=== PATIENT | male | born 1955 | race Hispanic/Latino ===

== ENCOUNTER 2021-03-30 17:04 | Inpatient (IN) | payer BC ==
--- OUTSIDE RECORDS SUMMARY | 2021-03-30 17:07 | XMS REPORT | Continuity of Care Document ---
:1955 Author Organization [facility] t Address [address] [place] [address] Care Team Providers Name Role Phone Selma RN, Kimberlee Attending Clinician Unavailable Ermias HENRIQUEZ, Michelle Banuelos Attending Clinician Unavailable Doctor Unassigned, Name Attending Clinician Unavailable Malu CASTLE Attending Clinician Problems This patient has no known problems. Allergies, Adverse Reactions, Alerts This patient has no known allergies or adverse reactions. Medications This patient has no known medications. Procedures This patient has no known procedures. Encounters Start End Encounter Admission Attending Care Care Encounter Source Date/Time Date/Time Type Type Clinicians Facility Department ID 2021-03-26 2021-03-26 Telephone TRISTIAN Hahn [id number] 00:00:00 00:00:00 Kimberlee SHOEMAKER [id number] 2021-03-26 2021-03-26 Letter TRISTIAN Monson [id number] 00:00:00 00:00:00 (Out) Michelle SHOEMAKER [id number] 2021-03-25 2021-03-25 Letter Doctor LUBIN [id number] 00:00:00 00:00:00 (Out) SAHARA Camacho [id number] [place] [id number] 2021-03-25 2021-03-25 Letter Doctor TRISTIAN [id number] 00:00:00 00:00:00 (Out) Unassigned, SAHARA [id number] [place] [facility] [id number] 2021-03-25 2021-03-25 Orders Doctor TRISTIAN [id number] 00:00:00 00:00:00 Only Unassigned, SAHARA [id number] [place] [facility] [id number] 2019-09-12 2019-09-12 [facility] [id number] 13:52:00 23:59:00 Encounter , Nelson [id number] [place] [id number] [facility] [id number] Results This patient has no known results.
--- NOTE | 2021-03-30 17:59 | RAD REPORT ---
EXAM DESCRIPTION: RAD - Chest Single View - 03/30/2021 5:53 pm CLINICAL HISTORY: Cough;Dyspnea COMPARISON: No comparisons FINDINGS: Mild patchy bilateral airspace disease. Cardiomegaly peerNo acute osseous abnormality. No significant pleural effusions or pneumothorax. IMPRESSION: Mild patchy bilateral airspace disease concerning for multifocal pneumonia, including Co vid-19.
[2021-03-30] MEDS ORDERED: IBUPROFEN 400 MG TAB ONE (18:06)
[2021-03-30 18:18] LABS: Absolute Lymphocytes (CBC) 0.5 K/uL (0.7-4.9); Basophils % 0.3 % (0-1.3); Hematocrit 44.6 % (39.6-49.0); Lymphocytes % 8.7 % (15.3-44.8); MPV 8.8 fL (7.6-11.3); RBC Red Blood Cell Count 4.82 M/uL (4.33-5.43)
[2021-03-30 18:25] LABS: Protime INR 1.09
--- NOTE | 2021-03-30 18:33 | ER ---
Nurse's Notes [facility] Name: Aniket Yen Age: 65 yrs Sex: Male : 1955 Arrival Date: 03/30/2021 Time: 17:07 Bed 17 Private MD: Diagnosis: Pneumonia due to SARS-associated coronavirus;Hypoxemia;Dehydration Presentation: 03/30 17:26 Chief complaint: Patient states: SOB, left sided abdominal pain x 2 days. COVID + kg 03/25. stated every time he gets up his 02 drops to 85% RA. Coronavirus screen: Client denies travel out of the [place] in the last 14 days. At this time, unable to obtain information related to travel outside the [place] Client presents with at least one sign or symptom that may indicate coronavirus-19. Standard/surgical mask placed on the client. Provider contacted for isolation considerations. Client reports previous positive COVID test result. Date of collection: March 25, 2021. Ebola Screen: Patient negative for fever greater than or equal to 101.5 degrees Fahrenheit, and additional compatible Ebola Virus Disease symptoms Patient denies exposure to infectious person. Patient denies travel to an Ebola-affected area in the 21 days before illness onset. Initial Sepsis Screen: Does the patient meet any 2 criteria? RR > 20 per min. No. Patient's initial sepsis screen is negative. Does the patient have a suspected source of infection? No. Patient's initial sepsis screen is negative. Risk Assessment: Do you want to hurt yourself or someone else? Patient reports no desire to harm self or others. Onset of symptoms was March 29, 2021. 17:26 Method Of Arrival: Wheelchair kg 17:26 Acuity: MARY 3 kg Triage Assessment: 17:34 General: Appears uncomfortable, Behavior is calm, cooperative, appropriate for age, kg quiet. Pain: Complains of pain in left upper quadrant and left lower quadrant Pain radiates to Generalized Pain currently is 7 out of 10 on a pain scale. at worst was 9 out of 10 on a pain scale. level that patient reports is acceptable is 3 out of 10 on a pain scale. Historical: - Allergies: 17:34 No Known Allergies; kg - Home Meds: 17:34 amlodipine 5 mg tab 1 tab once daily [Active]; atenolol 25 mg Oral tab 1 tab once daily kg [Active]; azithromycin 500 mg Oral tab 1 tab once daily [Active]; benzonatate 200 mg Oral cap 1 cap 3 times per day [Active]; prednisone 1 mg Oral tab 1 tab 2 times per day [Active]; omeprazole 20 mg Oral cpDR 1 cap once daily [Active]; - PMHx: 17:34 Hypertensive disorder; kg - PSHx: 17:34 left knee; kg - Immunization history:: Adult Immunizations not up to date, Client reports having NOT received the Covid vaccine. - Social history:: Smoking status: Patient denies any tobacco usage or history of. Patient uses alcohol, weekly. - Family history:: not pertinent. - Hospitalizations: : No recent hospitalization is reported. Screenin:36 Abuse screen: Denies threats or abuse. Denies injuries from another. Nutritional kg screening: No deficits noted. Tuberculosis screening: No symptoms or risk factors identified. Fall Risk None identified. Assessment: 18:35 General: Appears in no apparent distress. Behavior is. Pain: Pain currently is 6 out of hb 10 on a pain scale. Neuro: Level of Consciousness is awake, alert, obeys commands, Oriented to person, place, time, situation. Cardiovascular: Patient's skin is warm and dry. Respiratory: Reports shortness of breath at rest on exertion cough that is non-productive, Respiratory effort is even, mildly labored Respiratory pattern is tachypnea. GI: No signs and/or symptoms were reported involving the gastrointestinal system. : No signs and/or symptoms were reported regarding the genitourinary system. EENT: No signs and/or symptoms were reported regarding the EENT system. Derm: Skin is pink, warm \T\ dry. Musculoskeletal: Reports headache, body aches. 18:35 Reassessment: Dr. Valdez at bedside. hb Vital Signs: 17:26 BP 142 / 76; Pulse 95; Resp 26; Temp 100.8(O); Pulse Ox 88% on R/A; Weight 111.13 kg kg (R); Height 6 ft. 0 in. (182.88 cm) (R); Pain 6/10; 03/31 19:45 BP 156 / 81; Pulse 70; Resp 26; Temp 98.7; Pulse Ox 87% ; Pain 0/10; wg 03/30 17:26 Body Mass Index 33.23 (111.13 kg, 182.88 cm) kg ED Course: 03/30 17:07 Patient arrived in ED. as 17:07 Maday Nunez MD is Private Physician. as 17:30 Triage completed. kg 17:34 Arm band placed on right wrist. kg 17:36 Patient has correct armband on for positive identification. kg 17:43 Cullen aJy MD is Attending Physician. rn 17:53 CXR XRAY In Process Unspecified. EDMS 18:06 Inserted saline lock: 20 gauge in left forearm, using aseptic technique. Blood ss collected. 18:32 Vadim Jeffries MD is Hospitalizing Provider. rn 18:33 Lior Valdez is Hospitalizing Provider. rn 18:35 Nuris Green RN is Primary Nurse. hb 19:42 Primary Nurse role handed off by Nuris Green, RN mw2 Administered Medications: 17:49 Drug: Motrin (ibuprofen) 800 mg Route: PO; ss 19:37 Drug: SOLU-Medrol (methylPrednisoLONE) 125 mg Route: IVP; Site: left forearm; hb 19:40 Drug: NS 0.9% 1000 ml Route: IV; Rate: 1000 ml; Site: left forearm; hb Outcome: 18:33 Decision to Hospitalize by Provider. rn 03/31 21:24 Patient left the ED. ch4 Signatures: Dispatcher [employer] EDCrista Ferrara as Cullen Jay MD MD rn Smirch, Shelby, RN RN Nuris Green RN RN Louis Silva mw2 Rosamaria Hayden RN RN Alyson Patel, MARTINEZ HENRIQUEZ [facility] Jimmy Guaman
--- NOTE | 2021-03-30 18:34 | EDPHYS ---
Physician Documentation [facility] Name: Aniket Yen Age: 65 yrs Sex: Male : 1955 Arrival Date: 03/30/2021 Time: 17:07 Bed 17 Private MD: ED Physician Cullen Jay HPI: 03/30 18:00 This 65 yrs old Male presents to ER via Wheelchair with complaints of covid+, rn sob, symptoms worsening. 18:00 The patient has shortness of breath at rest, with light activity. Onset: The rn symptoms/episode began/occurred 6 day(s) ago. Duration: The symptoms are continuous. The patient's shortness of breath is aggravated by exertion, light activity, talking. Associated signs and symptoms: Pertinent positives: non-productive cough, Pertinent negatives: fever, hemoptysis, loss of consciousness. Severity of symptoms: At their worst the symptoms were moderate in the emergency department the symptoms are unchanged. The patient has not experienced similar symptoms in the past. The patient has not recently seen a physician. Patient reports 6 days of not feeling well, Covid positive, worsening shortness of breath especially with exertion. Positive diarrhea and fatigue. No chronic lung or heart problems.. Historical: - Allergies: 17:34 No Known Allergies; kg - Home Meds: 17:34 amlodipine 5 mg tab 1 tab once daily [Active]; atenolol 25 mg Oral tab 1 tab once daily kg [Active]; azithromycin 500 mg Oral tab 1 tab once daily [Active]; benzonatate 200 mg Oral cap 1 cap 3 times per day [Active]; prednisone 1 mg Oral tab 1 tab 2 times per day [Active]; omeprazole 20 mg Oral cpDR 1 cap once daily [Active]; - PMHx: 17:34 Hypertensive disorder; kg - PSHx: 17:34 left knee; kg - Immunization history:: Adult Immunizations not up to date, Client reports having NOT received the Covid vaccine. - Social history:: Smoking status: Patient denies any tobacco usage or history of. Patient uses alcohol, weekly. - Family history:: not pertinent. - Hospitalizations: : No recent hospitalization is reported. ROS: 18:00 Constitutional: Negative for fever, chills, and weight loss, Eyes: Negative for injury, rn pain, redness, and discharge, Neck: Negative for injury, pain, and swelling, Cardiovascular: Negative for chest pain, palpitations, and edema, Respiratory: Positive for cough and shortness of breath Abdomen/GI: Positive for diarrhea, negative for abdominal pain Back: Negative for injury and pain, MS/Extremity: Negative for injury and deformity, Skin: Negative for injury, rash, and discoloration, Neuro: Positive for headache and generalized weakness 18:00 All other systems are negative. Exam: 18:00 Constitutional: This is a well developed, well nourished patient who is awake, alert, rn mild tachypnea Head/Face: Normocephalic, atraumatic. Eyes: Pupils equal round and reactive to light, extra-ocular motions intact. Lids and lashes normal. Conjunctiva and sclera are non-icteric and not injected. Cornea within normal limits. Periorbital areas with no swelling, redness, or edema. ENT: No stridor Cardiovascular: Regular rate and rhythm. No pulse deficits. Respiratory: Mild tachypnea, no retractions Abdomen/GI: Soft, non-tender Skin: Warm, dry, no cyanosis MS/ Extremity: Pulses equal, no cyanosis. Neurovascular intact. Full, normal range of motion. Equal circumference. Neuro: Awake and alert, GCS 15 Vital Signs: 17:26 BP 142 / 76; Pulse 95; Resp 26; Temp 100.8(O); Pulse Ox 88% on R/A; Weight 111.13 kg kg (R); Height 6 ft. 0 in. (182.88 cm) (R); Pain 6/10; 03/31 19:45 BP 156 / 81; Pulse 70; Resp 26; Temp 98.7; Pulse Ox 87% ; Pain 0/10; wg 03/30 17:26 Body Mass Index 33.23 (111.13 kg, 182.88 cm) kg MDM: 03/30 17:43 Patient medically screened. rn 18:29 Differential diagnosis: Bronchitis Myocardial Infarction pneumonia, Pneumothorax rn pulmonary edema, Sepsis Covid. Antibiotic administration: Not indicated. Data reviewed: vital signs, nurses notes, lab test result(s), EKG, radiologic studies, plain films, and as a result, I will admit patient. Data interpreted: set rider: rate is 95 beats/min, rhythm is normal sinus rhythm, regular, with no ectopy, Interpretation: normal rate, normal rhythm, Pulse oximetry: on room air is 88 %. Interpretation: hypoxia. Plan: O2 by NC applied. Test interpretation: by ED physician or midlevel provider: plain radiologic studies, Chest x-ray with bilateral pulmonary opacities consistent with Covid pneumonia. Counseling: I had a detailed discussion with the patient and/or guardian regarding: the historical points, exam findings, and any diagnostic results supporting the discharge/admit diagnosis, lab results, radiology results, the need for further work-up and treatment in the hospital. Response to treatment: There is no appreciated change of the patient's symptoms at this time, and as a result, I will admit patient. Admission orders: after a detailed discussion of the patient's condition and case, the admit orders are written by me. ED course: . 03/30 17:44 Order name: BMP; Complete Time: 18:54 03/30 17:44 Order name: Blood Culture Adult (2) 03/30 17:44 Order name: C-Reactive Protein; Complete Time: 18:54 03/30 17:44 Order name: CBC with Diff; Complete Time: 18:20 03/30 17:44 Order name: D-Dimer; Complete Time: 18:44 03/30 17:44 Order name: Ferritin; Complete Time: 18:54 03/30 17:44 Order name: LFT's; Complete Time: 18:54 03/30 17:44 Order name: Lactate; Complete Time: 18:54 03/30 17:44 Order name: PT-INR; Complete Time: 18:44 03/30 17:44 Order name: Procalcitonin 03/30 17:44 Order name: Ptt, Activated; Complete Time: 18:44 03/30 17:44 Order name: Troponin (emerg Dept Use Only); Complete Time: 18:54 03/30 20:36 Order name: Glucose, Ancillary Testing [facility] 03/30 21:07 Order name: Lactate [facility] 03/30 22:52 Order name: Urinalysis [facility] 03/30 23:57 Order name: Urine Microscopic Only [facility] 03/31 03:06 Order name: CBC with Automated Diff [facility] 03/31 03:45 Order name: Comprehensive Metabolic Panel [facility] 03/31 03:45 Order name: Phosphorus [facility] 03/31 03:45 Order name: Lipid Profile [facility] 03/31 03:45 Order name: C-Reactive Protein [facility] 03/31 03:45 Order name: T4 Free [facility] 03/31 03:45 Order name: Magnesium [facility] 03/31 03:45 Order name: Thyroid Stimulating Hormone [facility] 03/31 03:45 Order name: Ferritin [facility] 03/31 04:04 Order name: Hemoglobin A1c [facility] 03/31 04:22 Order name: Procalcitonin [facility] 03/31 07:54 Order name: Glucose, Ancillary Testing [facility] 03/31 12:44 Order name: Glucose, Ancillary Testing [facility] 03/31 17:23 Order name: Glucose, Ancillary Testing [facility] 03/30 17:44 Order name: CXR XRAY; Complete Time: 18:03 rn 03/30 17:44 Order name: EKG; Complete Time: 17:45 rn 03/30 17:44 Order name: Cardiac monitoring rn 03/30 17:44 Order name: Droplet/Contact Precautions; Complete Time: 18:12 rn 03/30 17:44 Order name: EKG - Nurse/Tech rn 03/30 17:44 Order name: IV Start; Complete Time: 18:11 rn 03/30 17:44 Order name: Labs collected and sent; Complete Time: 18:11 rn 03/30 17:44 Order name: O2 Per Protocol; Complete Time: 18:11 rn 03/30 17:44 Order name: O2 Sat Monitoring; Complete Time: 18:11 rn 03/30 18:54 Order name: CONS Physician Consult [facility] Administered Medications: 17:49 Drug: Motrin (ibuprofen) 800 mg Route: PO; ss 19:37 Drug: SOLU-Medrol (methylPrednisoLONE) 125 mg Route: IVP; Site: left forearm; hb 19:40 Drug: NS 0.9% 1000 ml Route: IV; Rate: 1000 ml; Site: left forearm; hb Disposition Summary: 03/30/21 18:33 Hospitalization Ordered Hospitalization Status: Inpatient Admission rn Condition: Stable rn Problem: new rn Symptoms: are unchanged rn Bed/Room Type: Standard rn Provider: Lior Valdez(03/30/21 18:33) rn Location: Telemetry/MedSurg (Inpatient)(03/31/21 18:36) bd Room Assignment: 411(03/31/21 18:36) bd Diagnosis - Pneumonia due to SARS-associated coronavirus rn - Hypoxemia rn - Dehydration rn Forms: - Medication Reconciliation Form rn - SBAR form rn Signatures: Dispatcher [employer] [facility]WA Viri Watkins Cullen Jay MD MD rn Smirch, Shelby RN RN Kimberlee Pedraza RN RN Nuris Green RN RN Rosamaria Hayden RN RN kg Corrections: (The following items were deleted from the chart) 17:46 17:35 Chest Pa And Lat (2 Views)+RAD.RAD.BRZ ordered. [facility] 18:33 18:33 Vadim Jeffries rn rn 03/31 00:04 03/30 18:33 Telemetry/MedSurg (Inpatient) rn 03/31 00:04 03/30 18:33 rn cg 03/31 18:36 00:04 [facility] ER HOLD cg bd 18:36 00:04 ERHOLD- cg bd
[2021-03-30 18:52] LABS: ALT/SGPT 35 U/L (12-78); AST/SGOT 46 U/L (15-37); Albumin 3.1 g/dL (3.4-5.0); Alkaline Phosphatase 67 U/L (45-117); BUN Blood Urea Nitrogen 14 mg/dL (7-18); Bicarbonate 24 mmol/L (21-32); Bilirubin Direct 0.2 mg/dL (0-0.2); Bilirubin Total 0.7 mg/dL (0.2-1.0); Ferritin 1404.8 ng/mL (26-388); Glucose Level 212 mg/dL (74-106); Potassium 3.4 mmol/L (3.5-5.1); Protein, Total 7.5 g/dL (6.4-8.2); Sodium Level 128 mmol/L (136-145); Troponin (Emerg Dept Use Only) < 0.02 ng/mL (0.0-0.045)
[2021-03-30] MEDS ORDERED: HYDRALAZINE HCL 20 MG/ML VIAL IV PRN (19:42)
[2021-03-30] MEDS ORDERED: [UNRECOGNIZED DRUG - OTHER] XX STA (19:42)
[2021-03-30] MEDS ORDERED: POTASSIUM CL SA 10 MEQ TAB PO ONE ×2 (19:42→21:07)
[2021-03-30] MEDS ORDERED: NA CHLORIDE 0.9% 1,000 ML ONE (19:58)
[2021-03-30] MEDS ORDERED: METHYLPREDNISOLONE 125 MG INJ ONE (19:58)
--- NOTE | 2021-03-30 20:22 | P.HP ---
Certification for Inpatient Patient admitted to: Inpatient With expected LOS: >2 Midnights Patient will require the following post-hospital care: None Practitioner: I am a practitioner with admitting privileges, knowledge of patient current condition, hospital course, and medical plan of care. Services: Services provided to patient in accordance with Admission requirements found in Title 42 Section 412.3 of the Code of Federal Regulations Patient History Date of Service: 03/30/21 Primary Care Provider: Kaden Reason for admission: covid pneumonia History of Present Illness: Mr. Yen is a 65 yo M with HTN who presents with six days of cough and SOB. He tested positive for COVID last Monday, but his symptoms have been markedly worse for the past two days. He reports fatigue, dry cough, headache, nausea and diarrhea. Na 128 K 3.4 Cl 96 GFR 78 Glu 212 Lactate 2.2 Ferritin 1404 AST 46 CRP 114. Allergies No Known Allergies Allergy (Unverified 03/30/21 19:39) - Past Medical/Surgical History -: HTN -: left knee surgery - Family History Brother History Unknown: Yes Father Notes: alzheimer Mother Notes: dementia - Social History Smoking Status: Never smoker Alcohol use: Yes CD- Drugs: No Caffeine use: Yes Place of Residence: Home Review of Systems 10-point ROS is otherwise unremarkable General: Malaise Respiratory: Cough, Shortness of Breath, SOB with Excertion Gastrointestinal: Nausea, Diarrhea Physical Examination - Physical Exam General: Alert, In no apparent distress HEENT: Atraumatic, PERRLA, Mucous membr. moist/pink, EOMI, Sclerae nonicteric Neck: Supple, 2+ carotid pulse no bruit, No LAD, Without JVD or thyroid abnormality Respiratory: Normal air movement, Rhonchi/gurgles Cardiovascular: Regular rate/rhythm, Normal S1 S2 Gastrointestinal: Normal bowel sounds, No tenderness Musculoskeletal: No tenderness Integumentary: No rashes Neurological: Normal gait, Normal speech, Normal strength at 5/5 x4 extr, Normal tone, Normal affect Lymphatics: No axilla or inguinal lymphadenopathy - Studies Laboratory Data (last 24 hrs) 03/30/21 18:06: PT 12.6 H, INR 1.09, APTT 33.4 03/30/21 18:06: WBC 5.90, Hgb 15.7, Hct 44.6, Plt Count 178 03/30/21 18:06: Sodium 128 L, Potassium 3.4 L, BUN 14, Creatinine 0.97, Glucose 212 H, Total Bilirubin 0.7, AST 46 H, ALT 35, Alkaline Phosphatase 67 Assessment and Plan - Plan pulm consulted, RT consulted saturations for home O2, RA sats daily continue IV steroids, covid supplements, ivermectin begin remdesivir A1c pending, sliding scale insulin and accuchecks reconcile and continue home medications DVT ppx Discharge Plan: Home Plan to discharge in: 48 Hours - Advance Directives Does patient have a Living Will: No Does patient have a Durable POA for Healthcare: No - Code Status/Comfort Care Code Status Assessed: Yes (full code ) Critical Care: No Time Spent Managing Pts Care (In Minutes): 70
[2021-03-30] MEDS: ASCORBIC ACID 500 MG TABLET PO SCH (20:52)
[2021-03-30] MEDS: METHYLPREDNISOLONE 125 MG INJ IV SCH (20:52)
[2021-03-30] MEDS: INSULIN -REGULAR HUMAN 50 UNIT/0.5 ML ML SQ SCH (20:52)
[2021-03-30] MEDS: FAMOTIDINE 20 MG TAB PO SCH (20:52)
[2021-03-30] MEDS ORDERED: ACETAMINOPHEN 500 MG TAB ONE (21:06)
[2021-03-30] MEDS ORDERED: ASCORBIC ACID 500 MG TABLET ONE (21:06)
[2021-03-30] MEDS ORDERED: FAMOTIDINE 20 MG TAB ONE (21:07)
[2021-03-30] MEDS ORDERED: METHYLPREDNISOLONE 40 MG INJ ONE (21:07)
[2021-03-30] MEDS: ACETAMINOPHEN 500 MG TAB PO PRN (21:30)
[2021-03-30] MEDS: MELATONIN 5 MG TABLET PO PRN (22:39)
[2021-03-30 22:50] LABS: Urine Appearance CLEAR (Clear); Urine Bilirubin NEGATIVE (Negative); Urine Blood 2+ (Negative); Urine Color YELLOW (Yellow); Urine Glucose TRACE (Negative); Urine Protein TRACE (Negative); Urine Specific Gravity <=1.005 (1.005-1.030); Urine Urobilinogen 0.2 mg/dL (0.2-1.0); Urine pH 6.5 (5.0-7.0)
[2021-03-30 22:52] LABS: Urine Microscopic Reflex ORDER UMIC
[2021-03-30] MEDS ORDERED: MELATONIN 5 MG TABLET PO ONE (23:00)
[2021-03-30 23:56] LABS: Urine Bacteria <20 /HPF (NONE SEEN); Urine RBC <5 /HPF (NONE SEEN)
[2021-03-31] MEDS: BENZONATATE 100 MG CAP PO PRN ×3 (00:42→21:29)
[2021-03-31] MEDS ORDERED: BENZONATATE 100 MG CAP PO ONE ×2 (00:48→13:30)
[2021-03-31] MEDS: MORPHINE 2 MG/ML SYR IV PRN ×2 (02:03→13:55)
[2021-03-31] MEDS ORDERED: MORPHINE 2 MG/ML SYR ONE ×2 (02:13→14:15)
[2021-03-31 02:54] LABS: Absolute Lymphocytes (CBC) 0.9 K/uL (0.7-4.9); Basophils % 0.2 % (0-1.3); Hematocrit 44.2 % (39.6-49.0); Lymphocytes % 13.2 % (15.3-44.8); MPV 9.3 fL (7.6-11.3); RBC Red Blood Cell Count 4.76 M/uL (4.33-5.43)
[2021-03-31 03:45] LABS: ALT/SGPT 33 U/L (12-78); AST/SGOT 46 U/L (15-37); Albumin 2.9 g/dL (3.4-5.0); Alkaline Phosphatase 61 U/L (45-117); BUN Blood Urea Nitrogen 14 mg/dL (7-18); Bicarbonate 25 mmol/L (21-32); Bilirubin Total 0.8 mg/dL (0.2-1.0); Glucose Level 237 mg/dL (74-106); HDL Cholesterol 41 mg/dL (40-60); LDL Cholesterol, Calculated 105 (<130); Phosphorus 3.4 mg/dL (2.5-4.9); Protein, Total 7.4 g/dL (6.4-8.2); Sodium Level 135 mmol/L (136-145)
[2021-03-31] MEDS ORDERED: LORazepam 2 MG/ML VIAL IV ONE (05:33)
[2021-03-31] MEDS ORDERED: LORazepam 2 MG/ML VIAL ONE (05:43)
[2021-03-31] MEDS: INSULIN -REGULAR HUMAN 50 UNIT/0.5 ML ML SQ SCH ×4 (07:30→22:26)
--- NOTE | 2021-03-31 07:36 | P.CNS ---
Date of Consult: 03/31/21 Reason for Consult: COVID pneumonia Primary Care Provider: Kaden Chief Complaint: covid pneumonia History of Present Illness: AGe 65 AW COVID pneumonia worse past 2days Allergies No Known Allergies Allergy (Verified 03/30/21 22:13) Home Medications: Amlodipine [Norvasc] 5 mg PO DAILY 03/30/21 Atenolol [Tenormin] 25 mg PO DAILY 03/30/21 Azithromycin 500 mg PO DAILY 03/30/21 Benzonatate 200 mg PO TID 03/30/21 Omeprazole 20 mg PO DAILY 03/30/21 Prednisone [Marzena] 1 mg PO BID 03/30/21 - Past Medical/Surgical History Diabetic: No -: HTN -: left knee surgery - Family History Brother History Unknown: Yes Father Notes: alzheimer Mother Notes: dementia - Social History Alcohol use: Yes CD- Drugs: No Caffeine use: Yes Place of Residence: Home Review of Systems General: Weakness Respiratory: Shortness of Breath Physical Examination Temp Pulse Resp BP Pulse Ox 97.6 F 67 20 140/74 88 L 03/31/21 04:00 03/31/21 04:00 03/31/21 04:00 03/31/21 04:00 03/31/21 04:00 General: Alert, Oriented x3, Cooperative Laboratory Data (last 24 hrs) 03/30/21 18:06: PT 12.6 H, INR 1.09, APTT 33.4 03/30/21 18:06: WBC 5.90, Hgb 15.7, Hct 44.6, Plt Count 178 03/30/21 18:06: Sodium 128 L, Potassium 3.4 L, BUN 14, Creatinine 0.97, Glucose 212 H, Total Bilirubin 0.7, AST 46 H, ALT 35, Alkaline Phosphatase 67 - Problems (1) Pneumonia due to COVID-19 virus Current Visit: Yes Status: Acute Plan: age 65 AW COVID pneumonia/ labs and CXRY reviewed/ On high flow add Barcitinib/ CW steroids
[2021-03-31] MEDS ORDERED: ASCORBIC ACID 500 MG TABLET ONE ×2 (08:36→13:09)
[2021-03-31] MEDS ORDERED: FAMOTIDINE 20 MG TAB ONE (08:37)
[2021-03-31] MEDS ORDERED: ZINC SULFATE 220 MG CAP ONE (08:37)
[2021-03-31] MEDS ORDERED: METHYLPREDNISOLONE 40 MG INJ ONE (08:37)
[2021-03-31] MEDS ORDERED: THIAMINE HCL 100 MG TABLET ONE (08:37)
[2021-03-31] MEDS ORDERED: INSULIN -REGULAR HUMAN 50 UNIT/0.5 ML ML ONE ×2 (08:38→13:09)
[2021-03-31] MEDS ORDERED: ENOXAPARIN 40 MG/0.4 ML SQ ONE (08:48)
[2021-03-31] MEDS ORDERED: ASPIRIN EC 81 MG TAB PO ONE (08:48)
[2021-03-31] MEDS: VITAMIN D 1000 UNIT TAB PO SCH (09:00)
[2021-03-31] MEDS: THIAMINE HCL 100 MG TABLET PO SCH (09:00)
[2021-03-31] MEDS: ASPIRIN EC 81 MG TAB PO SCH (09:00)
[2021-03-31] MEDS: FAMOTIDINE 20 MG TAB PO SCH ×2 (09:00→21:29)
[2021-03-31] MEDS: IVERMECTIN 3 MG TABLET PO SCH (09:00)
[2021-03-31] MEDS: BARICITINIB 2 MG TABLET PO SCH (09:00)
[2021-03-31] MEDS: ZINC SULFATE 220 MG CAP PO SCH (09:00)
[2021-03-31] MEDS: ASCORBIC ACID 500 MG TABLET PO SCH ×4 (09:00→21:29)
[2021-03-31] MEDS: ENOXAPARIN 40 MG/0.4 ML SQ SCH (09:00)
[2021-03-31] MEDS: METHYLPREDNISOLONE 125 MG INJ IV SCH ×2 (09:00→21:29)
[2021-03-31] MEDS ORDERED: REMDESIVIR (EUA) 200 MG in NA CHLORIDE 0.9% 250 ML IV ONE ×2 (09:00→18:00)
[2021-03-31] MEDS: ONDANSETRON 4 MG/2 ML VIAL IV PRN (13:10)
[2021-03-31] MEDS ORDERED: ONDANSETRON 4 MG/2 ML VIAL ONE (13:30)
--- NOTE | 2021-03-31 16:38 | P.PN ---
Subjective Date of Service: 03/31/21 Primary Care Provider: Kaden Chief Complaint: covid pneumonia Patient now requiring high-flow oxygen. Physical Examination - Vital Signs Temperature: 97.6 F Blood Pressure: 133/72 Pulse: 74 Respirations: 28 Pulse Ox (%): 88 - Physical Exam General: Alert, Oriented x3 Neck: JVD not distended Respiratory: Other (Mildly labored breathing) Cardiovascular: Regular rate/rhythm, Normal S1 S2 Gastrointestinal: Soft and benign, Non-distended Musculoskeletal: No swelling Integumentary: No rashes Neurological: Normal strength at 5/5 x4 extr - Studies Laboratory Data (last 24 hrs) 03/30/21 18:06: PT 12.6 H, INR 1.09, APTT 33.4 03/30/21 18:06: WBC 5.90, Hgb 15.7, Hct 44.6, Plt Count 178 03/30/21 18:06: Sodium 128 L, Potassium 3.4 L, BUN 14, Creatinine 0.97, Glucose 212 H, Total Bilirubin 0.7, AST 46 H, ALT 35, Alkaline Phosphatase 67 Assessment And Plan - Current Problems (Diagnosis) (1) Acute respiratory failure with hypoxia Current Visit: Yes Status: Acute (2) Pneumonia due to COVID-19 virus Current Visit: Yes Status: Acute (3) Essential hypertension Current Visit: Yes Status: Acute - Plan Continue IV steroid, vitamin supplementation and zinc supplementation. Pulmonary input appreciated. Patient started on Baracitinib. Patient given a dose of Remdesivir. Monitor inflammatory markers. Pharmacy to evaluate for further Remdesivir therapy.
[2021-03-31] MEDS: MELATONIN 5 MG TABLET PO PRN (22:26)
[2021-03-31] MEDS ORDERED: HYDROCODONE/APAP 5/325 MG TAB PO ONE (22:34)
[2021-04-01] MEDS ORDERED: LORazepam 2 MG/ML VIAL IV ONE ×2 (05:33→19:22)
[2021-04-01] MEDS ORDERED: LORazepam 2 MG/ML VIAL ONE (05:57)
[2021-04-01 06:33] LABS: Absolute Lymphocytes (CBC) 1.2 K/uL (0.7-4.9); Basophils % 0.3 % (0-1.3); Hematocrit 44.7 % (39.6-49.0); Lymphocytes % 9.2 % (15.3-44.8); MPV 8.5 fL (7.6-11.3); RBC Red Blood Cell Count 4.83 M/uL (4.33-5.43)
[2021-04-01 06:52] LABS: ALT/SGPT 35 U/L (12-78); AST/SGOT 69 U/L (15-37); Albumin 2.8 g/dL (3.4-5.0); Alkaline Phosphatase 63 U/L (45-117); BUN Blood Urea Nitrogen 18 mg/dL (7-18); Bicarbonate 27 mmol/L (21-32); Bilirubin Direct 0.2 mg/dL (0-0.2); Bilirubin Total 0.7 mg/dL (0.2-1.0); Glucose Level 209 mg/dL (74-106); Potassium 3.6 mmol/L (3.5-5.1); Protein, Total 7.1 g/dL (6.4-8.2); Sodium Level 132 mmol/L (136-145)
[2021-04-01] MEDS: FAMOTIDINE 20 MG TAB PO SCH ×2 (08:48→20:06)
[2021-04-01] MEDS: ASCORBIC ACID 500 MG TABLET PO SCH ×4 (08:48→20:06)
[2021-04-01] MEDS: ZINC SULFATE 220 MG CAP PO SCH (08:48)
[2021-04-01] MEDS: METHYLPREDNISOLONE 125 MG INJ IV SCH ×2 (08:49→20:04)
[2021-04-01] MEDS: THIAMINE HCL 100 MG TABLET PO SCH (08:49)
[2021-04-01] MEDS: BARICITINIB 2 MG TABLET PO SCH (08:50)
[2021-04-01] MEDS: ASPIRIN EC 81 MG TAB PO SCH (08:50)
[2021-04-01] MEDS: VITAMIN D 1000 UNIT TAB PO SCH (08:50)
[2021-04-01] MEDS: INSULIN -REGULAR HUMAN 50 UNIT/0.5 ML ML SQ SCH ×4 (08:51→21:28)
[2021-04-01] MEDS: REMDESIVIR (EUA) 100 MG in NA CHLORIDE 0.9% 250 ML IV SCH (08:52)
[2021-04-01] MEDS: ENOXAPARIN 40 MG/0.4 ML SQ SCH (09:00)
[2021-04-01] MEDS ORDERED: REMDESIVIR (EUA) 100 MG in NA CHLORIDE 0.9% 250 ML IV SCH (09:00)
[2021-04-01] MEDS ORDERED: POTASSIUM CL SA 10 MEQ TAB PO ONE (09:00)
[2021-04-01] MEDS ORDERED: AMLODIPINE 5 MG TAB PO SCH (09:18)
[2021-04-01] MEDS: BENZONATATE 100 MG CAP PO PRN ×2 (10:43→20:06)
--- NOTE | 2021-04-01 13:24 | P.PN ---
Subjective Date of Service: 04/01/21 Primary Care Provider: Kaden Chief Complaint: covid pneumonia Patient now requiring high-flow oxygen. No major changes from yesterday. Physical Examination - Vital Signs Temperature: 97.6 F Blood Pressure: 147/71 Pulse: 77 Respirations: 20 Pulse Ox (%): 90 - Physical Exam General: In no apparent distress, Oriented x3 Neck: JVD not distended Respiratory: Other (Nonlabored breathing.) Cardiovascular: Regular rate/rhythm, Normal S1 S2 Gastrointestinal: Soft and benign, Non-distended Musculoskeletal: No swelling, No erythema Integumentary: No rashes, No breakdown Neurological: Normal strength at 5/5 x4 extr Assessment And Plan - Current Problems (Diagnosis) (1) Acute respiratory failure with hypoxia Current Visit: Yes Status: Acute (2) Pneumonia due to COVID-19 virus Current Visit: Yes Status: Acute (3) Essential hypertension Current Visit: Yes Status: Acute - Plan Continue IV steroid, vitamin supplementation and zinc supplementation. Patient started on Baracitinib. Pulmonary is following. Patient started on Remdesivir. Monitor inflammatory markers. Wean oxygen as tolerated. Resume home antihypertensives.
[2021-04-01] MEDS: atenoloL 25 MG TAB PO SCH (14:18)
[2021-04-01] MEDS: ONDANSETRON 4 MG/2 ML VIAL IV PRN (17:47)
[2021-04-01] MEDS: MELATONIN 5 MG TABLET PO PRN (20:06)
[2021-04-02] MEDS: LORazepam 2 MG/ML VIAL IV PRN ×2 (03:35→22:02)
[2021-04-02 05:56] LABS: Absolute Lymphocytes (CBC) 1.1 K/uL (0.7-4.9); Basophils % 0.2 % (0-1.3); Hematocrit 42.3 % (39.6-49.0); Lymphocytes % 9.5 % (15.3-44.8); MPV 8.4 fL (7.6-11.3); RBC Red Blood Cell Count 4.56 M/uL (4.33-5.43)
[2021-04-02 06:07] LABS: Albumin 2.6 g/dL (3.4-5.0); Bilirubin Direct 0.2 mg/dL (0-0.2); Bilirubin Total 0.8 mg/dL (0.2-1.0); Potassium 4.1 mmol/L (3.5-5.1); Protein, Total 6.6 g/dL (6.4-8.2)
[2021-04-02] MEDS: METHYLPREDNISOLONE 125 MG INJ IV SCH ×2 (08:06→22:00)
[2021-04-02] MEDS: ENOXAPARIN 40 MG/0.4 ML SQ SCH (08:09)
[2021-04-02] MEDS: FAMOTIDINE 20 MG TAB PO SCH ×2 (08:10→22:00)
[2021-04-02] MEDS: IVERMECTIN 3 MG TABLET PO SCH (08:10)
[2021-04-02] MEDS: THIAMINE HCL 100 MG TABLET PO SCH (08:10)
[2021-04-02] MEDS: ASCORBIC ACID 500 MG TABLET PO SCH ×4 (08:10→22:00)
[2021-04-02] MEDS: ZINC SULFATE 220 MG CAP PO SCH (08:10)
[2021-04-02] MEDS: ASPIRIN EC 81 MG TAB PO SCH (08:10)
[2021-04-02] MEDS: BARICITINIB 2 MG TABLET PO SCH (08:10)
[2021-04-02] MEDS: INSULIN -REGULAR HUMAN 50 UNIT/0.5 ML ML SQ SCH ×4 (08:10→22:00)
[2021-04-02] MEDS: VITAMIN D 1000 UNIT TAB PO SCH (08:10)
[2021-04-02] MEDS: atenoloL 25 MG TAB PO SCH (08:37)
[2021-04-02] MEDS ORDERED: AMLODIPINE 5 MG TAB PO SCH (09:00)
[2021-04-02] MEDS: REMDESIVIR (EUA) 100 MG in NA CHLORIDE 0.9% 250 ML IV SCH (10:25)
--- NOTE | 2021-04-02 15:38 | P.PN ---
Subjective Date of Service: 04/02/21 Primary Care Provider: Kaden Chief Complaint: covid pneumonia Patient now on CPAP. Physical Examination - Vital Signs Temperature: 97.0 F Blood Pressure: 119/63 Pulse: 58 Respirations: 26 Pulse Ox (%): 94 - Physical Exam General: Alert, In no apparent distress Neck: JVD not distended Respiratory: Other (Mildly labored breathing.) Cardiovascular: Regular rate/rhythm, Normal S1 S2 Gastrointestinal: Soft and benign, Non-distended Musculoskeletal: No swelling Neurological: Normal strength at 5/5 x4 extr Assessment And Plan - Current Problems (Diagnosis) (1) Acute respiratory failure with hypoxia Current Visit: Yes Status: Acute (2) Pneumonia due to COVID-19 virus Current Visit: Yes Status: Acute (3) Essential hypertension Current Visit: Yes Status: Acute - Plan Continue IV steroid, vitamin supplementation and zinc supplementation. Continue Baracitinib. Pulmonary is following. Contain Remdesivir. Monitor inflammatory markers. Wean oxygen as tolerated. Patient is currently normotensive. Continue home antihypertensives.
--- NOTE | 2021-04-02 16:06 | P.PN ---
Subjective Date of Service: 04/02/21 Primary Care Provider: Kaden Chief Complaint: covid pneumonia Respiratory failure still requiring high concentrations of oxygen Review of Systems General: Weakness Respiratory: Shortness of Breath Physical Examination - Vital Signs Temperature: 97.0 F Blood Pressure: 119/63 Pulse: 58 Respirations: 26 Pulse Ox (%): 94 - Physical Exam General: Oriented x3, Cooperative Assessment & Plan - Problems (Diagnosis) (1) Pneumonia due to COVID-19 virus Current Visit: Yes Status: Acute Plan: Respiratory failure still requiring high concentrations of oxygen labs and chemistries reviewed patient is on maximum therapy titrate O2 down to a sat of 90% repeat chest x-ray patient is on Barcitinib and steroids
[2021-04-02] MEDS: ONDANSETRON 4 MG/2 ML VIAL IV PRN (16:19)
[2021-04-02] MEDS: RIVAROXABAN 20 MG TABLET PO SCH (17:37)
[2021-04-02] MEDS: BENZONATATE 100 MG CAP PO PRN (17:51)
[2021-04-03] MEDS: LORazepam 2 MG/ML VIAL IV PRN (02:13)
[2021-04-03 06:37] LABS: ALT/SGPT 47 U/L (12-78); AST/SGOT 71 U/L (15-37); Albumin 2.8 g/dL (3.4-5.0); Alkaline Phosphatase 73 U/L (45-117); BUN Blood Urea Nitrogen 22 mg/dL (7-18); Bicarbonate 28 mmol/L (21-32); Bilirubin Direct 0.4 mg/dL (0-0.2); Bilirubin Total 1.3 mg/dL (0.2-1.0); Glucose Level 236 mg/dL (74-106); Protein, Total 6.7 g/dL (6.4-8.2); Sodium Level 133 mmol/L (136-145)
[2021-04-03] MEDS: THIAMINE HCL 100 MG TABLET PO SCH (08:20)
[2021-04-03] MEDS: FAMOTIDINE 20 MG TAB PO SCH ×2 (08:20→20:44)
[2021-04-03] MEDS: ZINC SULFATE 220 MG CAP PO SCH (08:20)
[2021-04-03] MEDS: atenoloL 25 MG TAB PO SCH (08:20)
[2021-04-03] MEDS: VITAMIN D 1000 UNIT TAB PO SCH (08:20)
[2021-04-03] MEDS: ASPIRIN EC 81 MG TAB PO SCH (08:20)
[2021-04-03] MEDS: METHYLPREDNISOLONE 125 MG INJ IV SCH ×2 (08:21→20:44)
[2021-04-03] MEDS: BARICITINIB 2 MG TABLET PO SCH (08:21)
[2021-04-03] MEDS: INSULIN -REGULAR HUMAN 50 UNIT/0.5 ML ML SQ SCH ×4 (08:21→20:43)
[2021-04-03] MEDS: ASCORBIC ACID 500 MG TABLET PO SCH ×4 (08:22→20:44)
[2021-04-03] MEDS: REMDESIVIR (EUA) 100 MG in NA CHLORIDE 0.9% 250 ML IV SCH (09:45)
--- NOTE | 2021-04-03 10:37 | RAD REPORT ---
EXAM DESCRIPTION: RAD - Chest Single View - 04/03/2021 8:50 am CLINICAL HISTORY: Coronavirus pneumonia Chest pain. COMPARISON: Chest Single View dated 03/30/2021 FINDINGS: Portable technique limits examination quality. Since 03/30/2021, moderate progression in bilateral pulmonary opacities is seen. The heart is upper l imit of normal in size. No displaced fractures. IMPRESSION: Moderate worsening in lung aeration seen since 03/30/2021.
--- NOTE | 2021-04-03 13:37 | P.PN ---
Subjective Date of Service: 04/03/21 Primary Care Provider: Kaden Chief Complaint: covid pneumonia Patient now on CPAP. No changes from yesterday. Physical Examination - Vital Signs Temperature: 97.0 F Blood Pressure: 131/64 Pulse: 60 Respirations: 24 Pulse Ox (%): 95 - Physical Exam General: Alert, In no apparent distress Respiratory: Other (Nonlabored breathing) Cardiovascular: Regular rate/rhythm, Normal S1 S2 Gastrointestinal: Soft and benign, Non-distended Musculoskeletal: No swelling Integumentary: No rashes Neurological: Normal strength at 5/5 x4 extr Assessment And Plan - Current Problems (Diagnosis) (1) Acute respiratory failure with hypoxia Current Visit: Yes Status: Acute (2) Pneumonia due to COVID-19 virus Current Visit: Yes Status: Acute (3) Essential hypertension Current Visit: Yes Status: Acute - Plan Continue IV steroid, vitamin supplementation and zinc supplementation. Continue Baracitinib. Pulmonary is following. Completed Remdesivir today. Monitor inflammatory markers. Wean oxygen as tolerated. Continue home antihypertensives.
[2021-04-03] MEDS: RIVAROXABAN 20 MG TABLET PO SCH (16:29)
[2021-04-03] MEDS: MORPHINE 2 MG/ML SYR IV PRN (20:45)
[2021-04-03] MEDS: ONDANSETRON 4 MG/2 ML VIAL IV PRN (21:09)
[2021-04-04 06:52] LABS: ALT/SGPT 53 U/L (12-78); AST/SGOT 48 U/L (15-37); Albumin 2.7 g/dL (3.4-5.0); Alkaline Phosphatase 75 U/L (45-117); BUN Blood Urea Nitrogen 23 mg/dL (7-18); Bicarbonate 30 mmol/L (21-32); Bilirubin Direct 0.4 mg/dL (0-0.2); Bilirubin Total 1.5 mg/dL (0.2-1.0); Glucose Level 239 mg/dL (74-106); Potassium 4.4 mmol/L (3.5-5.1); Protein, Total 6.3 g/dL (6.4-8.2); Sodium Level 133 mmol/L (136-145)
[2021-04-04] MEDS: ASCORBIC ACID 500 MG TABLET PO SCH ×4 (09:12→20:17)
[2021-04-04] MEDS: VITAMIN D 1000 UNIT TAB PO SCH (09:12)
[2021-04-04] MEDS: INSULIN -REGULAR HUMAN 50 UNIT/0.5 ML ML SQ SCH ×4 (09:12→21:05)
[2021-04-04] MEDS: THIAMINE HCL 100 MG TABLET PO SCH (09:12)
[2021-04-04] MEDS: ASPIRIN EC 81 MG TAB PO SCH (09:12)
[2021-04-04] MEDS: atenoloL 25 MG TAB PO SCH (09:13)
[2021-04-04] MEDS: FAMOTIDINE 20 MG TAB PO SCH ×2 (09:13→20:17)
[2021-04-04] MEDS: METHYLPREDNISOLONE 125 MG INJ IV SCH ×2 (09:13→20:17)
[2021-04-04] MEDS: ZINC SULFATE 220 MG CAP PO SCH (09:13)
[2021-04-04] MEDS: BARICITINIB 2 MG TABLET PO SCH (09:13)
[2021-04-04] MEDS: REMDESIVIR (EUA) 100 MG in NA CHLORIDE 0.9% 250 ML IV SCH (09:15)
--- NOTE | 2021-04-04 11:24 | P.PN ---
Subjective Date of Service: 04/04/21 Primary Care Provider: Kaden Chief Complaint: covid pneumonia No change still requiring high concentrations of oxygen Review of Systems General: Weakness Respiratory: Shortness of Breath Physical Examination - Vital Signs Temperature: 97.1 F Blood Pressure: 154/79 Pulse: 59 Respirations: 22 Pulse Ox (%): 86 - Physical Exam General: Alert, Oriented x1, Cooperative Assessment & Plan - Problems (Diagnosis) (1) Pneumonia due to COVID-19 virus Current Visit: Yes Status: Acute Plan: Respiratory failure labs reviewed on max therapy 1 dose of Lasix is on max therapy
[2021-04-04] MEDS: FUROSEMIDE 20 MG/ 2ML VIAL IV SCH (11:59)
[2021-04-04] MEDS ORDERED: GLUCAGON 1 MG/VIAL IM PRN (12:27)
[2021-04-04] MEDS ORDERED: D50W 25 GM/50 ML SYRINGE IV PRN (12:27)
--- NOTE | 2021-04-04 12:28 | P.PN ---
Subjective Date of Service: 04/04/21 Primary Care Provider: Kaden Chief Complaint: covid pneumonia Patient now on CPAP. He is able to tolerate high-flow oxygen with feeding. Physical Examination - Vital Signs Temperature: 97.1 F Blood Pressure: 154/79 Pulse: 59 Respirations: 22 Pulse Ox (%): 86 - Physical Exam General: In no apparent distress, Oriented x3 Neck: JVD not distended Respiratory: Other (Nonlabored breathing) Cardiovascular: Regular rate/rhythm, Normal S1 S2 Gastrointestinal: Soft and benign, Non-distended Musculoskeletal: No swelling Integumentary: No rashes Neurological: Normal strength at 5/5 x4 extr Assessment And Plan - Current Problems (Diagnosis) (1) Acute respiratory failure with hypoxia Current Visit: Yes Status: Acute (2) Pneumonia due to COVID-19 virus Current Visit: Yes Status: Acute (3) Essential hypertension Current Visit: Yes Status: Acute - Plan Continue IV steroid, vitamin supplementation and zinc supplementation. Continue Baracitinib. Pulmonary is following. Completed Remdesivir. Monitor inflammatory markers. Wean oxygen as tolerated. Continue home antihypertensives. Insulin sliding scale and Lantus insulin for hyperglycemia. Titrate Lantus insulin.
[2021-04-04] MEDS ORDERED: INSULIN GLARGINE 100 UNITS/ML SQ SCH (17:00)
[2021-04-04] MEDS: RIVAROXABAN 20 MG TABLET PO SCH (17:43)
[2021-04-04] MEDS: MORPHINE 2 MG/ML SYR IV PRN (22:32)
[2021-04-05 04:26] LABS: ALT/SGPT 45 U/L (12-78); AST/SGOT 38 U/L (15-37); Albumin 2.8 g/dL (3.4-5.0); Alkaline Phosphatase 81 U/L (45-117); BUN Blood Urea Nitrogen 24 mg/dL (7-18); Bicarbonate 28 mmol/L (21-32); Bilirubin Direct 0.4 mg/dL (0-0.2); Bilirubin Total 1.6 mg/dL (0.2-1.0); Glucose Level 203 mg/dL (74-106); Potassium 4.6 mmol/L (3.5-5.1); Protein, Total 6.5 g/dL (6.4-8.2); Sodium Level 133 mmol/L (136-145)
[2021-04-05 04:32] LABS: Absolute Lymphocytes (CBC) 1.2 K/uL (0.7-4.9); Basophils % 0.1 % (0-1.3); Hematocrit 46.1 % (39.6-49.0); Lymphocytes % 5.4 % (15.3-44.8); RBC Red Blood Cell Count 4.97 M/uL (4.33-5.43)
[2021-04-05] MEDS: FAMOTIDINE 20 MG TAB PO SCH ×2 (08:06→20:10)
[2021-04-05] MEDS: ZINC SULFATE 220 MG CAP PO SCH (08:06)
[2021-04-05] MEDS: VITAMIN D 1000 UNIT TAB PO SCH (08:06)
[2021-04-05] MEDS: atenoloL 25 MG TAB PO SCH (08:06)
[2021-04-05] MEDS: ASPIRIN EC 81 MG TAB PO SCH (08:07)
[2021-04-05] MEDS: BARICITINIB 2 MG TABLET PO SCH (08:07)
[2021-04-05] MEDS: METHYLPREDNISOLONE 125 MG INJ IV SCH ×2 (08:07→20:11)
[2021-04-05] MEDS: ASCORBIC ACID 500 MG TABLET PO SCH ×4 (08:07→20:11)
[2021-04-05] MEDS: FUROSEMIDE 20 MG/ 2ML VIAL IV SCH (08:07)
[2021-04-05] MEDS: THIAMINE HCL 100 MG TABLET PO SCH (08:07)
[2021-04-05] MEDS: INSULIN -REGULAR HUMAN 50 UNIT/0.5 ML ML SQ SCH ×4 (09:07→20:30)
[2021-04-05 10:27] LABS: Blood Morphology Comment NOT SEEN (NOT SEEN); Platelet Estimate ADEQ
--- NOTE | 2021-04-05 14:39 | P.PN ---
Subjective Date of Service: 04/05/21 Primary Care Provider: Kaden Chief Complaint: covid pneumonia Patient dependent on CPAP. On 100% FiO2 Physical Examination - Vital Signs Temperature: 98.3 F Blood Pressure: 144/68 Pulse: 55 Respirations: 23 Pulse Ox (%): 93 - Physical Exam General: Alert, In no apparent distress HEENT: Other (BiPAP) Respiratory: Other (Nonlabored breathing) Cardiovascular: Regular rate/rhythm, Normal S1 S2 Gastrointestinal: Soft and benign, Non-distended Musculoskeletal: No swelling Integumentary: No rashes Neurological: Normal strength at 5/5 x4 extr - Studies Microbiology Data (last 24 hrs): 03/30/21 18:16 Blood - Blood Aerobic Blood Culture - Final No growth in 5 days. 03/30/21 18:16 Blood - Blood Anaerobic Blood Culture - Final No growth in 5 days. 03/30/21 18:06 Blood - Blood Aerobic Blood Culture - Final No growth in 5 days. 03/30/21 18:06 Blood - Blood Anaerobic Blood Culture - Final No growth in 5 days. Assessment And Plan - Current Problems (Diagnosis) (1) Acute respiratory failure with hypoxia Current Visit: Yes Status: Acute (2) Pneumonia due to COVID-19 virus Current Visit: Yes Status: Acute (3) Essential hypertension Current Visit: Yes Status: Acute - Plan Continue IV steroid, vitamin supplementation and zinc supplementation. Continue Baracitinib. Pulmonary is following. Completed Remdesivir. Monitor inflammatory markers. Wean oxygen as tolerated. Continue home antihypertensives. Insulin sliding scale and Lantus insulin for hyperglycemia. Titrate Lantus insulin.
[2021-04-05] MEDS: ALPRAZOLAM 0.5 MG TABLET PO PRN ×2 (15:35→23:48)
[2021-04-05] MEDS: RIVAROXABAN 20 MG TABLET PO SCH (17:18)
[2021-04-05] MEDS: INSULIN GLARGINE 100 UNITS/ML SQ SCH (17:19)
[2021-04-06] MEDS: MELATONIN 5 MG TABLET PO PRN ×2 (01:11→21:27)
[2021-04-06] MEDS ORDERED: MORPHINE 2 MG/ML SYR IV ONE (03:21)
[2021-04-06 03:57] LABS: Absolute Lymphocytes (CBC) 1.2 K/uL (0.7-4.9); Basophils % 0.5 % (0-1.3); Hematocrit 47.6 % (39.6-49.0); Lymphocytes % 4.3 % (15.3-44.8); MPV 9.2 fL (7.6-11.3); RBC Red Blood Cell Count 5.13 M/uL (4.33-5.43)
[2021-04-06 04:07] LABS: ALT/SGPT 39 U/L (12-78); AST/SGOT 25 U/L (15-37); Alkaline Phosphatase 85 U/L (45-117); BUN Blood Urea Nitrogen 26 mg/dL (7-18); Bicarbonate 28 mmol/L (21-32); Glucose Level 189 mg/dL (74-106); Potassium 4.5 mmol/L (3.5-5.1); Sodium Level 132 mmol/L (136-145)
[2021-04-06 04:08] LABS: Albumin 2.8 g/dL (3.4-5.0); Bilirubin Direct 0.4 mg/dL (0-0.2); Bilirubin Total 1.8 mg/dL (0.2-1.0); Protein, Total 6.8 g/dL (6.4-8.2)
[2021-04-06] MEDS ORDERED: MORPHINE 2 MG/ML SYR IV PRN (04:20)
[2021-04-06] MEDS: INSULIN -REGULAR HUMAN 50 UNIT/0.5 ML ML SQ SCH ×5 (07:30→21:50)
[2021-04-06] MEDS: ZINC SULFATE 220 MG CAP PO SCH (08:35)
[2021-04-06] MEDS: ASPIRIN EC 81 MG TAB PO SCH (08:35)
[2021-04-06] MEDS: VITAMIN D 1000 UNIT TAB PO SCH (08:36)
[2021-04-06] MEDS: ASCORBIC ACID 500 MG TABLET PO SCH ×4 (08:36→21:00)
[2021-04-06] MEDS: METHYLPREDNISOLONE 125 MG INJ IV SCH ×2 (08:38→21:26)
[2021-04-06] MEDS: atenoloL 25 MG TAB PO SCH (08:40)
[2021-04-06] MEDS: ALPRAZOLAM 0.5 MG TABLET PO PRN ×2 (08:45→21:27)
[2021-04-06] MEDS: FUROSEMIDE 20 MG/ 2ML VIAL IV SCH (08:46)
[2021-04-06] MEDS: THIAMINE HCL 100 MG TABLET PO SCH (08:48)
[2021-04-06] MEDS: MORPHINE 2 MG/ML SYR IV PRN (10:04)
[2021-04-06] MEDS: FAMOTIDINE 20 MG TAB PO SCH ×2 (10:36→21:27)
[2021-04-06] MEDS: BARICITINIB 2 MG TABLET PO SCH (10:50)
--- NOTE | 2021-04-06 12:09 | P.PN ---
Subjective Date of Service: 04/06/21 Primary Care Provider: Kaden Chief Complaint: covid pneumonia Respiratory failure respiratory failure patient is on high concentrations of oxygen white count elevated Review of Systems General: Weakness Respiratory: Shortness of Breath Physical Examination - Vital Signs Temperature: 99.6 F Blood Pressure: 149/72 Pulse: 74 Respirations: 20 Pulse Ox (%): 90 - Physical Exam General: Alert, Oriented x3, Cooperative Assessment & Plan - Problems (Diagnosis) (1) Pneumonia due to COVID-19 virus Current Visit: Yes Status: Acute Plan: Respiratory failure respiratory failure white count is not significantly elevated to a chest x-ray blood cultures start patient is on empiric antibiotics including Diflucan I have added blood culture I ordered blood cultures start patient on levofloxacin Lasix x2 days still 100% still on 100% FiO2
[2021-04-06] MEDS: levoFLOXacin 500 MG TAB PO SCH (12:33)
[2021-04-06] MEDS: FLUCONAZOLE 100 MG TAB PO SCH (13:31)
--- NOTE | 2021-04-06 13:53 | P.PN ---
Subjective Date of Service: 04/06/21 Primary Care Provider: Kaden Chief Complaint: covid pneumonia Subjective: No new changes (feels about the same as yesterday, no new complaints, still on BIPAP 100% fio2, wbc significantly increased today, afebrile) Review of Systems 10-point ROS is otherwise unremarkable Physical Examination - Vital Signs Temperature: 99.6 F Blood Pressure: 149/72 Pulse: 74 Respirations: 20 Pulse Ox (%): 90 Assessment & Plan Physician Review Additional Text: Physical Exam General: Alert, In no apparent distress HEENT: Normal conjunctiva, sclera anicteric Respiratory: Nonlabored respirations on BiPAP FiO2: 100% Cardiovascular: Regular rate/rhythm, no edema Gastrointestinal: Soft and benign, Non-distended Musculoskeletal: No swelling Integumentary: No rashes Problem list Acute hypoxemic respiratory failure secondary to COVID-19 pneumonia Hypertension Continue IV steroid, vitamin supplementation and zinc supplementation. Continue Baracitinib. Pulmonary is following. Completed Remdesivir. Monitor inflammatory markers. Wean oxygen as tolerated. Continue home antihypertensives. Insulin sliding scale and Lantus insulin for hyperglycemia. Titrate Lantus insulin. Dispo: anticipate hospitalization > 2 days Time Spent Managing Pts Care (In Minutes): 40
[2021-04-06] MEDS: RIVAROXABAN 20 MG TABLET PO SCH (17:06)
[2021-04-06] MEDS: INSULIN GLARGINE 100 UNITS/ML SQ SCH (17:35)
[2021-04-06] MEDS: BENZONATATE 100 MG CAP PO PRN (21:27)
[2021-04-06] MEDS: ACETAMINOPHEN 500 MG TAB PO PRN (21:27)
[2021-04-07] MEDS ORDERED: HYDROCODONE/CHLORPHEN 5 ML/OSYR PO PRN
[2021-04-07 04:43] LABS: Absolute Lymphocytes (CBC) 1.2 K/uL (0.7-4.9); Basophils % 0.3 % (0-1.3); Hematocrit 46.1 % (39.6-49.0); Lymphocytes % 4.7 % (15.3-44.8); MPV 8.8 fL (7.6-11.3); RBC Red Blood Cell Count 4.94 M/uL (4.33-5.43)
[2021-04-07 05:00] LABS: ALT/SGPT 32 U/L (12-78); AST/SGOT 28 U/L (15-37); Albumin 2.6 g/dL (3.4-5.0); Alkaline Phosphatase 80 U/L (45-117); BUN Blood Urea Nitrogen 27 mg/dL (7-18); Bicarbonate 28 mmol/L (21-32); Bilirubin Direct 0.5 mg/dL (0-0.2); Bilirubin Total 1.8 mg/dL (0.2-1.0); Glucose Level 180 mg/dL (74-106); Potassium 4.6 mmol/L (3.5-5.1); Protein, Total 6.6 g/dL (6.4-8.2); Sodium Level 131 mmol/L (136-145)
--- NOTE | 2021-04-07 06:19 | P.PN ---
Subjective Date of Service: 04/07/21 Primary Care Provider: Kaden Chief Complaint: covid pneumonia Subjective: No new changes (reports doing ok, about the same as yesterday, no new complaints, no new pains, no dysuria, appetite ok) Review of Systems 10-point ROS is otherwise unremarkable Physical Examination - Vital Signs Temperature: 98.3 F Blood Pressure: 139/67 Pulse: 57 Respirations: 24 Pulse Ox (%): 94 Assessment & Plan Physician Review Additional Text: Physical Exam General: Alert, In no apparent distress HEENT: Normal conjunctiva, sclera anicteric Respiratory: Nonlabored respirations on BiPAP FiO2: 100% Cardiovascular: Regular rate/rhythm, no edema Gastrointestinal: Soft and benign, Non-distended Musculoskeletal: No swelling Integumentary: No rashes Problem list Acute hypoxemic respiratory failure secondary to COVID-19 pneumonia Hypertension Continue IV steroid, vitamin supplementation and zinc supplementation. Continue Baracitinib. Pulmonary is following. Completed Remdesivir. Monitor inflammatory markers. Wean oxygen as tolerated. Continue home antihypertensives. Insulin sliding scale and Lantus insulin for hyperglycemia. Titrate Lantus insulin. CRP increased today, no signs of any new infections Dispo: anticipate hospitalization > 2 days Time Spent Managing Pts Care (In Minutes): 40
--- NOTE | 2021-04-07 07:31 | RAD REPORT ---
EXAM DESCRIPTION: RAD - Chest Single View - 04/07/2021 4:26 am CLINICAL HISTORY: Pneumonia COMPARISON: Chest Single View dated 04/03/2021; Chest Single View dated 03/30/2021 FINDINGS: Mild improved lung volumes, otherwise similar bilateral airspace disease. Cardiomegaly.No acute osseous abnormality. No significant pleural effusions or pneumothorax. IMPRESSION: Lung volumes slightly improved but otherwise similar bilateral airspace disease which re alisia concerning for multifocal pneumonia.
[2021-04-07] MEDS: THIAMINE HCL 100 MG TABLET PO SCH (08:18)
[2021-04-07] MEDS: FLUCONAZOLE 100 MG TAB PO SCH (08:19)
[2021-04-07] MEDS: VITAMIN D 1000 UNIT TAB PO SCH (08:19)
[2021-04-07] MEDS: levoFLOXacin 500 MG TAB PO SCH (08:19)
[2021-04-07] MEDS: FAMOTIDINE 20 MG TAB PO SCH ×2 (08:19→21:36)
[2021-04-07] MEDS: atenoloL 25 MG TAB PO SCH (08:19)
[2021-04-07] MEDS: BARICITINIB 2 MG TABLET PO SCH (08:20)
[2021-04-07] MEDS: ASCORBIC ACID 500 MG TABLET PO SCH ×4 (08:20→21:36)
[2021-04-07] MEDS: ZINC SULFATE 220 MG CAP PO SCH (08:20)
[2021-04-07] MEDS: FUROSEMIDE 20 MG/ 2ML VIAL IV SCH ×2 (08:21→08:22)
[2021-04-07] MEDS: METHYLPREDNISOLONE 125 MG INJ IV SCH ×2 (08:21→21:36)
[2021-04-07] MEDS: ASPIRIN EC 81 MG TAB PO SCH (08:35)
[2021-04-07] MEDS: INSULIN -REGULAR HUMAN 50 UNIT/0.5 ML ML SQ SCH ×4 (08:36→21:37)
[2021-04-07] MEDS: ALPRAZOLAM 0.5 MG TABLET PO PRN (08:36)
[2021-04-07] MEDS: MORPHINE 2 MG/ML SYR IV PRN ×2 (10:29→23:52)
[2021-04-07] MEDS: RIVAROXABAN 20 MG TABLET PO SCH (16:35)
[2021-04-07] MEDS: INSULIN GLARGINE 100 UNITS/ML SQ SCH (16:52)
[2021-04-08] MEDS ORDERED: MORPHINE 2 MG/ML SYR IV ONE (03:04)
[2021-04-08 03:43] LABS: Absolute Lymphocytes (CBC) 1.2 K/uL (0.7-4.9); Basophils % 0.2 % (0-1.3); Hematocrit 48.9 % (39.6-49.0); Lymphocytes % 4.6 % (15.3-44.8); MPV 9.1 fL (7.6-11.3); RBC Red Blood Cell Count 5.28 M/uL (4.33-5.43)
[2021-04-08 03:59] LABS: ALT/SGPT 29 U/L (12-78); AST/SGOT 27 U/L (15-37); Albumin 2.8 g/dL (3.4-5.0); Alkaline Phosphatase 93 U/L (45-117); BUN Blood Urea Nitrogen 27 mg/dL (7-18); Bicarbonate 29 mmol/L (21-32); Bilirubin Direct 0.4 mg/dL (0-0.2); Bilirubin Total 1.6 mg/dL (0.2-1.0); Glucose Level 189 mg/dL (74-106); Potassium 4.3 mmol/L (3.5-5.1); Protein, Total 7.1 g/dL (6.4-8.2); Sodium Level 130 mmol/L (136-145)
--- NOTE | 2021-04-08 06:18 | P.PN ---
Subjective Date of Service: 04/08/21 Primary Care Provider: Kaden Chief Complaint: covid pneumonia Subjective: Improving (Feeling better today, sitting up in chair next to bed. Urinating without issue, on high flow nasal cannula, titrating down.) Review of Systems 10-point ROS is otherwise unremarkable Physical Examination - Vital Signs Temperature: 97.5 F Blood Pressure: 143/65 Pulse: 70 Respirations: 18 Pulse Ox (%): 88 Assessment & Plan Physician Review Additional Text: Physical Exam General: Alert, appears fatigued HEENT: Normal conjunctiva, sclera anicteric Respiratory: Nonlabored respirations on HFNC Cardiovascular: Regular rate/rhythm, no edema Gastrointestinal: Soft and benign, Non-distended Problem list Acute hypoxemic respiratory failure secondary to COVID-19 pneumonia Hypertension Continue IV steroid, vitamin supplementation and zinc supplementation. Continue Baracitinib. Pulmonary is following. Completed Remdesivir. Monitor inflammatory markers. Wean oxygen as tolerated. Continue home antihypertensives. Insulin sliding scale and Lantus insulin for hyperglycemia. Titrate Lantus insulin. CRP improved Levaquin and Diflucan started 04/07 pulmonology, worsening leukocytosis and CRP Dispo: anticipate dc home in ~5-7 days Time Spent Managing Pts Care (In Minutes): 40
[2021-04-08 07:27] LABS: C-Reactive Protein 37.4 mg/L (<3.00); Ferritin 1403.1 ng/mL (26-388)
[2021-04-08] MEDS: FAMOTIDINE 20 MG TAB PO SCH ×2 (07:49→21:08)
[2021-04-08] MEDS: INSULIN -REGULAR HUMAN 50 UNIT/0.5 ML ML SQ SCH ×4 (07:49→21:08)
[2021-04-08] MEDS: VITAMIN D 1000 UNIT TAB PO SCH (07:50)
[2021-04-08] MEDS: FUROSEMIDE 20 MG/ 2ML VIAL IV SCH ×2 (07:51→07:56)
[2021-04-08] MEDS: FLUCONAZOLE 100 MG TAB PO SCH (07:51)
[2021-04-08] MEDS: ASPIRIN EC 81 MG TAB PO SCH (07:52)
[2021-04-08] MEDS: atenoloL 25 MG TAB PO SCH (07:52)
[2021-04-08] MEDS: ASCORBIC ACID 500 MG TABLET PO SCH ×4 (07:52→21:08)
[2021-04-08] MEDS: THIAMINE HCL 100 MG TABLET PO SCH (07:52)
[2021-04-08] MEDS: levoFLOXacin 500 MG TAB PO SCH (07:52)
[2021-04-08] MEDS: BARICITINIB 2 MG TABLET PO SCH (07:53)
[2021-04-08] MEDS: METHYLPREDNISOLONE 125 MG INJ IV SCH ×2 (07:53→21:08)
[2021-04-08] MEDS: MORPHINE 2 MG/ML SYR IV PRN ×2 (08:37→14:57)
[2021-04-08] MEDS: BENZONATATE 100 MG CAP PO PRN (08:37)
[2021-04-08] MEDS: ZINC SULFATE 220 MG CAP PO SCH (08:37)
[2021-04-08] MEDS: RIVAROXABAN 20 MG TABLET PO SCH (16:52)
[2021-04-08] MEDS: INSULIN GLARGINE 100 UNITS/ML SQ SCH (16:53)
[2021-04-08] MEDS: ALPRAZOLAM 0.5 MG TABLET PO PRN (21:07)
[2021-04-09] MEDS: MORPHINE 2 MG/ML SYR IV PRN ×2 (01:16→08:35)
[2021-04-09 06:18] LABS: Absolute Lymphocytes (CBC) 0.6 K/uL (0.7-4.9); Basophils % 0.2 % (0-1.3); Hematocrit 47.1 % (39.6-49.0); Lymphocytes % 2.4 % (15.3-44.8); MPV 8.7 fL (7.6-11.3); RBC Red Blood Cell Count 5.03 M/uL (4.33-5.43)
[2021-04-09 06:35] LABS: Albumin 2.6 g/dL (3.4-5.0); Bilirubin Direct 0.4 mg/dL (0-0.2); Bilirubin Total 1.6 mg/dL (0.2-1.0); Potassium 4.7 mmol/L (3.5-5.1); Protein, Total 6.8 g/dL (6.4-8.2)
--- NOTE | 2021-04-09 07:07 | P.PN ---
Subjective Date of Service: 04/09/21 Primary Care Provider: Kaden Chief Complaint: covid pneumonia Subjective: No new changes (feels slightly better, gets dyspneic with movement, SpO2 down to 70 when tried to go to bathroom) Review of Systems 10-point ROS is otherwise unremarkable Physical Examination - Vital Signs Temperature: 97.3 F Blood Pressure: 143/80 Pulse: 61 Respirations: 16 Pulse Ox (%): 89 Assessment & Plan Physician Review Additional Text: Physical Exam General: Alert, appears fatigued HEENT: Normal conjunctiva, sclera anicteric Respiratory: mild labored respirations on BIPAP Cardiovascular: Regular rate/rhythm, no edema Gastrointestinal: Soft and benign, Non-distended Problem list Acute hypoxemic respiratory failure secondary to COVID-19 pneumonia Hypertension Continue IV steroid, vitamin supplementation and zinc supplementation. Continue Baracitinib. Pulmonary is following. Completed Remdesivir. Wean oxygen as tolerated. Insulin sliding scale and Lantus insulin for hyperglycemia. Titrate Lantus insulin. CRP improved Levaquin and Diflucan started 04/07 per pulmonology, due to worsening leukocytosis and CRP Dispo: anticipate dc home in ~5-7 days Time Spent Managing Pts Care (In Minutes): 35
[2021-04-09 08:12] LABS: Blood Morphology Comment NOT SEEN (NOT SEEN); Platelet Estimate INCR; Platelets, Giant FEW; White Blood Cell Scan OK (OK)
[2021-04-09] MEDS: INSULIN -REGULAR HUMAN 50 UNIT/0.5 ML ML SQ SCH ×4 (08:34→21:15)
[2021-04-09] MEDS: BENZONATATE 100 MG CAP PO PRN (08:34)
[2021-04-09] MEDS: FLUCONAZOLE 100 MG TAB PO SCH (08:36)
[2021-04-09] MEDS: FAMOTIDINE 20 MG TAB PO SCH ×2 (08:36→21:14)
[2021-04-09] MEDS: FUROSEMIDE 20 MG/ 2ML VIAL IV SCH (08:37)
[2021-04-09] MEDS: ASCORBIC ACID 500 MG TABLET PO SCH ×4 (08:37→21:14)
[2021-04-09] MEDS: ASPIRIN EC 81 MG TAB PO SCH (08:37)
[2021-04-09] MEDS: THIAMINE HCL 100 MG TABLET PO SCH (08:37)
[2021-04-09] MEDS: ZINC SULFATE 220 MG CAP PO SCH (08:37)
[2021-04-09] MEDS: levoFLOXacin 500 MG TAB PO SCH (08:37)
[2021-04-09] MEDS: BARICITINIB 2 MG TABLET PO SCH (08:38)
[2021-04-09] MEDS: VITAMIN D 1000 UNIT TAB PO SCH (08:38)
[2021-04-09] MEDS: atenoloL 25 MG TAB PO SCH (08:39)
[2021-04-09] MEDS: METHYLPREDNISOLONE 125 MG INJ IV SCH ×2 (08:39→21:14)
[2021-04-09] MEDS: ALPRAZOLAM 0.5 MG TABLET PO PRN ×2 (12:34→23:03)
[2021-04-09] MEDS: INSULIN GLARGINE 100 UNITS/ML SQ SCH (16:25)
[2021-04-09] MEDS: RIVAROXABAN 20 MG TABLET PO SCH (16:26)
[2021-04-10] MEDS: MORPHINE 2 MG/ML SYR IV PRN ×2 (00:39→09:31)
--- NOTE | 2021-04-10 06:09 | P.PN ---
Subjective Date of Service: 04/10/21 Primary Care Provider: Kaden Chief Complaint: covid pneumonia Subjective: No new changes (feels the same, maybe slightly more tired today, doesn't like wearing bipap mask) Review of Systems 10-point ROS is otherwise unremarkable Physical Examination - Vital Signs Temperature: 99 F Blood Pressure: 142/63 Pulse: 57 Respirations: 20 Pulse Ox (%): 92 Assessment & Plan Physician Review Additional Text: Physical Exam General: Alert, appears fatigued HEENT: Normal conjunctiva, sclera anicteric Respiratory: non labored respirations on HFNC/BIPAP Cardiovascular: Regular rate/rhythm, no edema Gastrointestinal: Soft and benign, Non-distended Problem list Acute hypoxemic respiratory failure secondary to COVID-19 pneumonia Hypertension Continue IV steroid, vitamin supplementation and zinc supplementation. Continue Baracitinib. Pulmonary is following. Completed Remdesivir. Wean oxygen as tolerated. Insulin sliding scale and Lantus insulin for hyperglycemia. Increase Lantus CRP improved Levaquin and Diflucan started 04/07 per pulmonology, due to worsening leukocytosis and CRP Dispo: anticipate dc home in ~5-7 days Time Spent Managing Pts Care (In Minutes): 35
[2021-04-10 06:26] LABS: Albumin 2.5 g/dL (3.4-5.0); Bilirubin Direct 0.3 mg/dL (0-0.2); Bilirubin Total 1.5 mg/dL (0.2-1.0); Potassium 4.8 mmol/L (3.5-5.1); Protein, Total 6.5 g/dL (6.4-8.2)
[2021-04-10 06:39] LABS: Absolute Lymphocytes (CBC) 0.8 K/uL (0.7-4.9); Basophils % 0.1 % (0-1.3); Lymphocytes % 3.3 % (15.3-44.8); MPV 9.3 fL (7.6-11.3); RBC Red Blood Cell Count 5.03 M/uL (4.33-5.43)
--- NOTE | 2021-04-10 08:59 | RAD REPORT ---
EXAM DESCRIPTION: Terese Single View04/10/2021 8:29 am CLINICAL HISTORY: Hypoxia COMPARISON: April 07, 2021 FINDINGS: Mild improvement bilateral pulmonary opacities. Heart is borderline enlarged IMPRESSION: Mild improvement in bilateral pulmonary opacities probably pneumonia
[2021-04-10] MEDS: INSULIN -REGULAR HUMAN 50 UNIT/0.5 ML ML SQ SCH ×4 (09:03→20:17)
[2021-04-10] MEDS: THIAMINE HCL 100 MG TABLET PO SCH (09:05)
[2021-04-10] MEDS: ASPIRIN EC 81 MG TAB PO SCH (09:05)
[2021-04-10] MEDS: FLUCONAZOLE 100 MG TAB PO SCH (09:05)
[2021-04-10] MEDS: atenoloL 25 MG TAB PO SCH (09:06)
[2021-04-10] MEDS: METHYLPREDNISOLONE 125 MG INJ IV SCH ×2 (09:06→20:16)
[2021-04-10] MEDS: VITAMIN D 1000 UNIT TAB PO SCH (09:06)
[2021-04-10] MEDS: ASCORBIC ACID 500 MG TABLET PO SCH ×4 (09:07→20:16)
[2021-04-10] MEDS: FUROSEMIDE 20 MG/ 2ML VIAL IV SCH (09:07)
[2021-04-10] MEDS: FAMOTIDINE 20 MG TAB PO SCH ×2 (09:07→20:16)
[2021-04-10] MEDS: levoFLOXacin 500 MG TAB PO SCH (09:07)
[2021-04-10] MEDS: ZINC SULFATE 220 MG CAP PO SCH (09:07)
[2021-04-10] MEDS: BARICITINIB 2 MG TABLET PO SCH (09:08)
[2021-04-10 11:35] LABS: Blood Morphology Comment NOT SEEN (NOT SEEN); Platelet Estimate ADEQ
--- NOTE | 2021-04-10 12:39 | P.PN ---
Subjective Date of Service: 04/10/21 Primary Care Provider: Kaden Chief Complaint: covid pneumonia Patient is feeling better although on high concentrations of oxygen white count is declining Review of Systems General: Weakness Respiratory: Shortness of Breath Physical Examination - Vital Signs Temperature: 97.6 F Blood Pressure: 148/70 Pulse: 73 Respirations: 23 Pulse Ox (%): 85 - Physical Exam General: Alert, Oriented x3, Cooperative Assessment & Plan - Problems (Diagnosis) (1) Pneumonia due to COVID-19 virus Current Visit: Yes Status: Acute Plan: Respiratory failure requiring high concentrations of oxygen white count is declining continue with daily Lasix
[2021-04-10] MEDS: BENZONATATE 100 MG CAP PO PRN ×2 (12:42→20:16)
[2021-04-10] MEDS: ALPRAZOLAM 0.5 MG TABLET PO PRN ×2 (12:42→20:16)
[2021-04-10] MEDS: FENOFIBRATE 160 MG TAB PO SCH (13:12)
[2021-04-10] MEDS: INSULIN GLARGINE 100 UNITS/ML SQ SCH (17:31)
[2021-04-10] MEDS: RIVAROXABAN 20 MG TABLET PO SCH (17:32)
[2021-04-11] MEDS: MORPHINE 2 MG/ML SYR IV PRN (03:56)
[2021-04-11 06:06] LABS: Absolute Lymphocytes (CBC) 0.9 K/uL (0.7-4.9); Basophils % 0.1 % (0-1.3); Lymphocytes % 4.1 % (15.3-44.8); MPV 9.1 fL (7.6-11.3); RBC Red Blood Cell Count 5.08 M/uL (4.33-5.43)
[2021-04-11 06:22] LABS: ALT/SGPT 21 U/L (12-78); AST/SGOT 17 U/L (15-37); Albumin 2.4 g/dL (3.4-5.0); Alkaline Phosphatase 82 U/L (45-117); BUN Blood Urea Nitrogen 36 mg/dL (7-18); Bicarbonate 27 mmol/L (21-32); Bilirubin Direct 0.3 mg/dL (0-0.2); Bilirubin Total 1.7 mg/dL (0.2-1.0); C-Reactive Protein 6.42 mg/L (<3.00); Glucose Level 213 mg/dL (74-106); Potassium 4.8 mmol/L (3.5-5.1); Protein, Total 6.3 g/dL (6.4-8.2); Sodium Level 129 mmol/L (136-145)
--- NOTE | 2021-04-11 06:37 | P.PN ---
Subjective Date of Service: 04/11/21 Primary Care Provider: Kaden Chief Complaint: covid pneumonia Subjective: Improving Review of Systems 10-point ROS is otherwise unremarkable Physical Examination - Vital Signs Temperature: 97.0 F Blood Pressure: 151/70 Pulse: 54 Respirations: 18 Pulse Ox (%): 92 Assessment & Plan Physician Review Additional Text: Physical Exam General: Alert, appears fatigued HEENT: Normal conjunctiva, sclera anicteric Respiratory: non labored respirations on HFNC/NRB Cardiovascular: Regular rate/rhythm, no edema Gastrointestinal: Soft and benign, Non-distended Problem list Acute hypoxemic respiratory failure secondary to COVID-19 pneumonia Hypertension Continue IV steroid, vitamin supplementation and zinc supplementation. Continue Baracitinib. Pulmonary is following. Completed Remdesivir. Wean oxygen as tolerated. Insulin sliding scale and Lantus insulin for hyperglycemia. Increased Lantus CRP improved Levaquin and Diflucan started 04/07 per pulmonology, due to worsening leukocytosis and CRP Dispo: anticipate dc home in ~5-7 days Time Spent Managing Pts Care (In Minutes): 30
[2021-04-11] MEDS: METHYLPREDNISOLONE 125 MG INJ IV SCH ×2 (09:19→19:46)
[2021-04-11] MEDS: FLUCONAZOLE 100 MG TAB PO SCH (09:20)
[2021-04-11] MEDS: FENOFIBRATE 160 MG TAB PO SCH (09:20)
[2021-04-11] MEDS: THIAMINE HCL 100 MG TABLET PO SCH (09:20)
[2021-04-11] MEDS: atenoloL 25 MG TAB PO SCH (09:20)
[2021-04-11] MEDS: VITAMIN D 1000 UNIT TAB PO SCH (09:20)
[2021-04-11] MEDS: FAMOTIDINE 20 MG TAB PO SCH ×2 (09:21→19:45)
[2021-04-11] MEDS: INSULIN -REGULAR HUMAN 50 UNIT/0.5 ML ML SQ SCH ×4 (09:21→21:18)
[2021-04-11] MEDS: BENZONATATE 100 MG CAP PO PRN ×2 (09:21→19:45)
[2021-04-11] MEDS: FUROSEMIDE 20 MG/ 2ML VIAL IV SCH (09:21)
[2021-04-11] MEDS: ASCORBIC ACID 500 MG TABLET PO SCH ×4 (09:21→19:45)
[2021-04-11] MEDS: ASPIRIN EC 81 MG TAB PO SCH (09:21)
[2021-04-11] MEDS: ZINC SULFATE 220 MG CAP PO SCH (09:21)
[2021-04-11] MEDS: levoFLOXacin 500 MG TAB PO SCH (09:21)
[2021-04-11] MEDS: BARICITINIB 2 MG TABLET PO SCH (09:23)
[2021-04-11] MEDS: RIVAROXABAN 20 MG TABLET PO SCH (16:29)
[2021-04-11] MEDS: INSULIN GLARGINE 100 UNITS/ML SQ SCH ×2 (16:29→20:00)
[2021-04-11] MEDS ORDERED: TAMSULOSIN 0.4 MG SR CAP PO ONE (17:15)
[2021-04-11] MEDS: DOCUSATE NA 100 MG CAP PO SCH (19:46)
[2021-04-11] MEDS: ALPRAZOLAM 0.5 MG TABLET PO PRN (21:18)
[2021-04-12] MEDS: MORPHINE 2 MG/ML SYR IV PRN (04:37)
[2021-04-12 05:02] LABS: Hematocrit 49.6 % (39.6-49.0); MPV 9.5 fL (7.6-11.3); RBC Red Blood Cell Count 5.32 M/uL (4.33-5.43)
[2021-04-12 05:35] LABS: ALT/SGPT 22 U/L (12-78); AST/SGOT 26 U/L (15-37); Albumin 2.6 g/dL (3.4-5.0); Alkaline Phosphatase 87 U/L (45-117); BUN Blood Urea Nitrogen 37 mg/dL (7-18); Bicarbonate 32 mmol/L (21-32); Bilirubin Direct 0.4 mg/dL (0-0.2); Bilirubin Total 1.9 mg/dL (0.2-1.0); Ferritin 1722.1 ng/mL (26-388); Glucose Level 195 mg/dL (74-106); Potassium 5.1 mmol/L (3.5-5.1); Protein, Total 6.6 g/dL (6.4-8.2); Sodium Level 129 mmol/L (136-145)
[2021-04-12 05:36] LABS: C-Reactive Protein < 2.90 mg/L (<3.00)
--- NOTE | 2021-04-12 06:31 | P.PN ---
Subjective Date of Service: 04/12/21 Primary Care Provider: Kaden Chief Complaint: covid pneumonia Subjective: No new changes (Patient feels like he is breathing a little bit better today, feels he is not desaturating as quickly, and does not take his long to recover. He still becomes hypoxic with minimal movement. No new complaints) Review of Systems 10-point ROS is otherwise unremarkable Physical Examination - Vital Signs Temperature: 96.8 F Blood Pressure: 135/70 Pulse: 54 Respirations: 20 Pulse Ox (%): 96 Assessment & Plan Physician Review Additional Text: Physical Exam General: Alert, NAD HEENT: Normal conjunctiva, sclera anicteric Respiratory: non labored respirations on HFNC/NRB Cardiovascular: Regular rate/rhythm, no edema Gastrointestinal: Soft and benign, Non-distended Neuro: moves all extremities Problem list Acute hypoxemic respiratory failure secondary to COVID-19 pneumonia Steroid-induced hyperglycemia Hypertension Hyponatremia, mild; acute Continue IV steroid, vitamin supplementation and zinc supplementation. Continue Baracitinib. Pulmonary is following. Completed Remdesivir. Wean oxygen as tolerated. A1c: 6.0 Insulin sliding scale and Lantus insulin for hyperglycemia. Increased Lantus Mild hyponatremia once corrected for hyperglycemia. Receiving Lasix per pulm CRP improved, however ferritin is climbing Levaquin and Diflucan started 04/06 per pulmonology, due to worsening leukocytosis and CRP Dispo: anticipate prolonged hospitalization Discussed LTAC with patient. States he would prefer to continue his care here. He is concerned about "starting over" at a new place. I asked him to continue to consider it. Time Spent Managing Pts Care (In Minutes): 35
[2021-04-12] MEDS: INSULIN -REGULAR HUMAN 50 UNIT/0.5 ML ML SQ SCH ×4 (07:30→20:51)
[2021-04-12] MEDS: ZINC SULFATE 220 MG CAP PO SCH (09:00)
[2021-04-12] MEDS: levoFLOXacin 500 MG TAB PO SCH (09:58)
[2021-04-12] MEDS: DOCUSATE NA 100 MG CAP PO SCH ×2 (09:58→20:47)
[2021-04-12] MEDS: THIAMINE HCL 100 MG TABLET PO SCH (09:58)
[2021-04-12] MEDS: POLYETHYL GLY 3350 17 GM/DOSE PO PRN (09:58)
[2021-04-12] MEDS: VITAMIN D 1000 UNIT TAB PO SCH (09:59)
[2021-04-12] MEDS: METHYLPREDNISOLONE 125 MG INJ IV SCH ×2 (09:59→20:47)
[2021-04-12] MEDS: FUROSEMIDE 20 MG/ 2ML VIAL IV SCH (09:59)
[2021-04-12] MEDS: FENOFIBRATE 160 MG TAB PO SCH (10:00)
[2021-04-12] MEDS: ASCORBIC ACID 500 MG TABLET PO SCH ×4 (10:00→20:53)
[2021-04-12] MEDS: FAMOTIDINE 20 MG TAB PO SCH ×2 (10:00→20:47)
[2021-04-12] MEDS: ASPIRIN EC 81 MG TAB PO SCH (10:00)
[2021-04-12] MEDS: FLUCONAZOLE 100 MG TAB PO SCH (10:04)
[2021-04-12] MEDS: BARICITINIB 2 MG TABLET PO SCH (10:04)
[2021-04-12] MEDS: atenoloL 25 MG TAB PO SCH (10:05)
[2021-04-12] MEDS: RIVAROXABAN 20 MG TABLET PO SCH (16:52)
[2021-04-12] MEDS: INSULIN GLARGINE 100 UNITS/ML SQ SCH (16:53)
[2021-04-12] MEDS: BENZONATATE 100 MG CAP PO PRN (20:47)
[2021-04-12] MEDS ORDERED: TAMSULOSIN 0.4 MG SR CAP PO SCH (21:00)
[2021-04-12] MEDS: ALPRAZOLAM 0.5 MG TABLET PO PRN (22:28)
[2021-04-13 04:30] LABS: Absolute Lymphocytes (CBC) 1.3 K/uL (0.7-4.9); Basophils % 0.1 % (0-1.3); MPV 9.8 fL (7.6-11.3); RBC Red Blood Cell Count 5.16 M/uL (4.33-5.43)
[2021-04-13 05:08] LABS: ALT/SGPT 20 U/L (12-78); AST/SGOT 20 U/L (15-37); Albumin 2.5 g/dL (3.4-5.0); Alkaline Phosphatase 84 U/L (45-117); BUN Blood Urea Nitrogen 35 mg/dL (7-18); Bicarbonate 32 mmol/L (21-32); Bilirubin Direct 0.4 mg/dL (0-0.2); Bilirubin Total 1.9 mg/dL (0.2-1.0); Ferritin 1740.9 ng/mL (26-388); Glucose Level 160 mg/dL (74-106); Magnesium 2.6 mg/dL (1.8-2.4); Potassium 4.9 mmol/L (3.5-5.1); Protein, Total 6.2 g/dL (6.4-8.2); Sodium Level 129 mmol/L (136-145)
[2021-04-13 05:21] LABS: C-Reactive Protein < 2.90 mg/L (<3.00)
[2021-04-13] MEDS: INSULIN -REGULAR HUMAN 50 UNIT/0.5 ML ML SQ SCH ×4 (07:30→21:38)
[2021-04-13] MEDS: POLYETHYL GLY 3350 17 GM/DOSE PO PRN (08:32)
[2021-04-13] MEDS: METHYLPREDNISOLONE 125 MG INJ IV SCH ×2 (08:33→21:29)
[2021-04-13] MEDS: FUROSEMIDE 20 MG/ 2ML VIAL IV SCH (08:33)
[2021-04-13] MEDS: levoFLOXacin 500 MG TAB PO SCH (08:39)
[2021-04-13] MEDS: ZINC SULFATE 220 MG CAP PO SCH (08:40)
[2021-04-13] MEDS: BARICITINIB 2 MG TABLET PO SCH (08:40)
[2021-04-13] MEDS: FLUCONAZOLE 100 MG TAB PO SCH (08:40)
[2021-04-13] MEDS: DOCUSATE NA 100 MG CAP PO SCH ×2 (08:40→21:29)
[2021-04-13] MEDS: ASPIRIN EC 81 MG TAB PO SCH (08:40)
[2021-04-13] MEDS: VITAMIN D 1000 UNIT TAB PO SCH (08:40)
[2021-04-13] MEDS: FAMOTIDINE 20 MG TAB PO SCH ×2 (08:41→21:30)
[2021-04-13] MEDS: FENOFIBRATE 160 MG TAB PO SCH (08:41)
[2021-04-13] MEDS: THIAMINE HCL 100 MG TABLET PO SCH (08:41)
[2021-04-13] MEDS: atenoloL 25 MG TAB PO SCH (08:41)
[2021-04-13] MEDS: ASCORBIC ACID 500 MG TABLET PO SCH ×4 (08:41→21:30)
--- NOTE | 2021-04-13 16:47 | P.PN ---
Subjective Date of Service: 04/13/21 Primary Care Provider: Kaden Chief Complaint: covid pneumonia Patient dependent on CPAP. No changes in FiO2 requirement over several days. Physical Examination - Vital Signs Temperature: 97.3 F Blood Pressure: 134/75 Pulse: 61 Respirations: 26 Pulse Ox (%): 85 - Physical Exam General: Alert, In no apparent distress HEENT: Other (CPAP) Neck: JVD not distended Respiratory: Other (Nonlabored breathing) Cardiovascular: No edema, Regular rate/rhythm, Normal S1 S2 Gastrointestinal: Soft and benign, Non-distended Musculoskeletal: No swelling Integumentary: No rashes Neurological: Normal strength at 5/5 x4 extr Assessment And Plan - Current Problems (Diagnosis) (1) Acute respiratory failure with hypoxia Current Visit: Yes Status: Acute (2) Pneumonia due to COVID-19 virus Current Visit: Yes Status: Acute (3) Essential hypertension Current Visit: Yes Status: Acute Physician Review Additional Text: Problem list Acute hypoxemic respiratory failure secondary to COVID-19 pneumonia Steroid-induced hyperglycemia Hypertension Hyponatremia, mild; acute Continue IV steroid, vitamin supplementation and zinc supplementation. Continue Baracitinib. Pulmonary is following. Completed Remdesivir. Wean oxygen as tolerated. A1c: 6.0 Insulin sliding scale and Lantus insulin for hyperglycemia. Receiving IV Lasix per pulm Levaquin and Diflucan started 04/06 per pulmonology, due to worsening leukocytosis and CRP
[2021-04-13] MEDS: RIVAROXABAN 20 MG TABLET PO SCH (16:53)
[2021-04-13] MEDS: INSULIN GLARGINE 100 UNITS/ML SQ SCH (18:39)
[2021-04-13] MEDS: ENSURE HIGH PROTEIN 237 ML CAN PO SCH (21:29)
[2021-04-13] MEDS: BENZONATATE 100 MG CAP PO PRN (21:29)
[2021-04-13] MEDS: ALPRAZOLAM 0.5 MG TABLET PO PRN (22:45)
[2021-04-14 03:40] LABS: Absolute Lymphocytes (CBC) 1.1 K/uL (0.7-4.9); Basophils % 0.2 % (0-1.3); Hematocrit 47.1 % (39.6-49.0); Lymphocytes % 4.5 % (15.3-44.8); MPV 9.5 fL (7.6-11.3); RBC Red Blood Cell Count 5.11 M/uL (4.33-5.43)
[2021-04-14 03:54] LABS: Albumin 2.5 g/dL (3.4-5.0); Phosphorus 4.7 mg/dL (2.5-4.9); Potassium 5.2 mmol/L (3.5-5.1)
[2021-04-14] MEDS: MORPHINE 2 MG/ML SYR IV PRN (03:56)
[2021-04-14 04:44] LABS: Blood Morphology Comment NOT SEEN (NOT SEEN); Platelet Estimate ADEQ
[2021-04-14] MEDS: INSULIN -REGULAR HUMAN 50 UNIT/0.5 ML ML SQ SCH ×4 (07:30→21:00)
[2021-04-14] MEDS: ENSURE HIGH PROTEIN 237 ML CAN PO SCH ×2 (09:00→21:00)
[2021-04-14] MEDS: FUROSEMIDE 20 MG/ 2ML VIAL IV SCH (09:51)
[2021-04-14] MEDS: levoFLOXacin 500 MG TAB PO SCH (09:52)
[2021-04-14] MEDS: METHYLPREDNISOLONE 125 MG INJ IV SCH (09:52)
[2021-04-14] MEDS: POLYETHYL GLY 3350 17 GM/DOSE PO PRN (09:52)
[2021-04-14] MEDS: ASCORBIC ACID 500 MG TABLET PO SCH ×4 (09:52→21:00)
[2021-04-14] MEDS: FAMOTIDINE 20 MG TAB PO SCH ×2 (09:53→21:55)
[2021-04-14] MEDS: ZINC SULFATE 220 MG CAP PO SCH (09:53)
[2021-04-14] MEDS: FLUCONAZOLE 100 MG TAB PO SCH (09:53)
[2021-04-14] MEDS: DOCUSATE NA 100 MG CAP PO SCH ×2 (09:53→21:55)
[2021-04-14] MEDS: atenoloL 25 MG TAB PO SCH (09:53)
[2021-04-14] MEDS: ASPIRIN EC 81 MG TAB PO SCH (09:54)
[2021-04-14] MEDS: THIAMINE HCL 100 MG TABLET PO SCH (09:54)
[2021-04-14] MEDS: VITAMIN D 1000 UNIT TAB PO SCH (09:54)
[2021-04-14] MEDS: FENOFIBRATE 160 MG TAB PO SCH (09:54)
[2021-04-14] MEDS ORDERED: FUROSEMIDE 20 MG/ 2ML VIAL IV ONE (16:28)
--- NOTE | 2021-04-14 16:28 | P.PN ---
Subjective Date of Service: 04/14/21 Primary Care Provider: Kaden Chief Complaint: covid pneumonia NC stillSOB Review of Systems Respiratory: Shortness of Breath Physical Examination - Vital Signs Temperature: 97.3 F Blood Pressure: 135/79 Pulse: 91 Respirations: 24 Pulse Ox (%): 93 - Physical Exam General: Alert, Oriented x3, Cooperative Assessment & Plan - Problems (Diagnosis) (1) Pneumonia due to COVID-19 virus Current Visit: Yes Status: Acute Plan: REsp failure decrease solumed to 40 BId WBC declining/ one dose of lasix
--- NOTE | 2021-04-14 16:33 | P.PN ---
Subjective Date of Service: 04/14/21 Primary Care Provider: Kaden Chief Complaint: covid pneumonia Patient alternating between CPAP and high-flow oxygen He is still dependent on 100% FiO2. Physical Examination - Vital Signs Temperature: 97.3 F Blood Pressure: 135/79 Pulse: 91 Respirations: 24 Pulse Ox (%): 93 - Physical Exam General: Alert, In no apparent distress Neck: JVD not distended Respiratory: Other (Nonlabored breathing) Cardiovascular: No edema, Regular rate/rhythm, Normal S1 S2 Gastrointestinal: Soft and benign, Non-distended Musculoskeletal: No swelling Integumentary: No rashes Neurological: Other (No focal motor deficits) Assessment And Plan - Current Problems (Diagnosis) (1) Acute respiratory failure with hypoxia Current Visit: Yes Status: Acute (2) Pneumonia due to COVID-19 virus Current Visit: Yes Status: Acute (3) Essential hypertension Current Visit: Yes Status: Acute Physician Review Additional Text: Problem list Acute hypoxemic respiratory failure secondary to COVID-19 pneumonia Steroid-induced hyperglycemia Hypertension Hyponatremia, mild; acute Continue IV steroid, vitamin supplementation and zinc supplementation. Continue Baracitinib. Pulmonary is following. Completed Remdesivir. Wean oxygen as tolerated. A1c: 6.0 Insulin sliding scale. Titrate Lantus insulin. Continue IV Lasix. Levaquin and Diflucan started 04/06 per pulmonology, due to worsening leuko cytosis and CRP. Continue antibiotics.
[2021-04-14] MEDS: RIVAROXABAN 20 MG TABLET PO SCH (17:47)
[2021-04-14] MEDS: INSULIN GLARGINE 100 UNITS/ML SQ SCH (17:48)
[2021-04-14] MEDS: MELATONIN 5 MG TABLET PO PRN (21:55)
[2021-04-14] MEDS: METHYLPREDNISOLONE 40 MG INJ IV SCH (21:55)
[2021-04-15 04:22] LABS: Albumin 2.5 g/dL (3.4-5.0); Phosphorus 5.4 mg/dL (2.5-4.9)
[2021-04-15 04:25] LABS: Absolute Lymphocytes (CBC) 1.2 K/uL (0.7-4.9); Basophils % 0.1 % (0-1.3); Hematocrit 49.4 % (39.6-49.0); Lymphocytes % 4.9 % (15.3-44.8); MPV 9.7 fL (7.6-11.3); RBC Red Blood Cell Count 5.32 M/uL (4.33-5.43)
--- NOTE | 2021-04-15 07:23 | RAD REPORT ---
EXAM DESCRIPTION: RAD - Chest Single View - 04/15/2021 5:02 am CLINICAL HISTORY: COVID pneumonia COMPARISON: April 10, April 07 TECHNIQUE: AP portable chest image was obtained 04/15/2021 5:02 am . FINDINGS: Interstitial and alveolar opacities are present. There has been further slight improvement since April 10. No progressive lung parenchymal process seen. Heart and vasculature are normal. N o pneumothorax is seen. Costophrenic angle blunting is present. Patient probably has small bilateral pleural effusions. IMPRESSION: Slight improvement since the April 10 study. Infiltrates remain in the lower lung fie lds, more prominent to the left. Small bilateral pleural effusions.
[2021-04-15] MEDS: INSULIN -REGULAR HUMAN 50 UNIT/0.5 ML ML SQ SCH ×4 (07:30→20:14)
[2021-04-15] MEDS: ASCORBIC ACID 500 MG TABLET PO SCH ×4 (09:20→20:15)
[2021-04-15] MEDS: FENOFIBRATE 160 MG TAB PO SCH (09:20)
[2021-04-15] MEDS: VITAMIN D 1000 UNIT TAB PO SCH (09:20)
[2021-04-15] MEDS: ZINC SULFATE 220 MG CAP PO SCH (09:20)
[2021-04-15] MEDS: THIAMINE HCL 100 MG TABLET PO SCH (09:20)
[2021-04-15] MEDS: FLUCONAZOLE 100 MG TAB PO SCH (09:20)
[2021-04-15] MEDS: METHYLPREDNISOLONE 40 MG INJ IV SCH ×2 (09:20→20:15)
[2021-04-15] MEDS: DOCUSATE NA 100 MG CAP PO SCH ×2 (09:20→20:15)
[2021-04-15] MEDS: ASPIRIN EC 81 MG TAB PO SCH (09:20)
[2021-04-15] MEDS: FUROSEMIDE 20 MG/ 2ML VIAL IV SCH (09:21)
[2021-04-15] MEDS: atenoloL 25 MG TAB PO SCH (09:21)
[2021-04-15] MEDS: levoFLOXacin 500 MG TAB PO SCH (09:21)
[2021-04-15] MEDS: FAMOTIDINE 20 MG TAB PO SCH ×2 (09:21→20:15)
[2021-04-15] MEDS: ENSURE HIGH PROTEIN 237 ML CAN PO SCH ×2 (09:22→20:14)
--- NOTE | 2021-04-15 16:29 | P.PN ---
Subjective Date of Service: 04/15/21 Primary Care Provider: Kaden Chief Complaint: covid pneumonia Patient alternating between CPAP and high-flow oxygen He is still dependent on 100% FiO2. No changes from yesterday. Physical Examination - Vital Signs Temperature: 96.8 F Blood Pressure: 107/64 Pulse: 62 Respirations: 26 Pulse Ox (%): 93 - Physical Exam General: Alert, In no apparent distress Neck: JVD not distended Respiratory: Other (Nonlabored breathing+) Cardiovascular: Regular rate/rhythm, Normal S1 S2 Gastrointestinal: Soft and benign, Non-distended Musculoskeletal: No swelling Integumentary: No rashes Neurological: Normal strength at 5/5 x4 extr Assessment And Plan - Current Problems (Diagnosis) (1) Acute respiratory failure with hypoxia Current Visit: Yes Status: Acute (2) Pneumonia due to COVID-19 virus Current Visit: Yes Status: Acute (3) Essential hypertension Current Visit: Yes Status: Acute Physician Review Additional Text: Problem list Acute hypoxemic respiratory failure secondary to COVID-19 pneumonia Steroid-induced hyperglycemia Hypertension Hyponatremia, mild; acute Continue IV steroid, vitamin supplementation and zinc supplementation. Completed Baracitinib. Pulmonary is following. Completed Remdesivir. Wean oxygen as tolerated. A1c: 6.0 Insulin sliding scale. Titrate Lantus insulin. Continue IV Lasix. Continue antibiotics.
[2021-04-15] MEDS: RIVAROXABAN 20 MG TABLET PO SCH (17:47)
[2021-04-15] MEDS: INSULIN GLARGINE 100 UNITS/ML SQ SCH (17:47)
[2021-04-15] MEDS: ALPRAZOLAM 0.5 MG TABLET PO PRN (22:17)
[2021-04-16] MEDS: MORPHINE 2 MG/ML SYR IV PRN (01:18)
[2021-04-16 04:50] LABS: Absolute Lymphocytes (CBC) 1.2 K/uL (0.7-4.9); Basophils % 0.1 % (0-1.3); Hematocrit 47.6 % (39.6-49.0); MPV 9.8 fL (7.6-11.3); RBC Red Blood Cell Count 5.15 M/uL (4.33-5.43)
[2021-04-16 05:08] LABS: Albumin 2.5 g/dL (3.4-5.0); BUN Blood Urea Nitrogen 37 mg/dL (7-18); Bicarbonate 35 mmol/L (21-32); Glucose Level 170 mg/dL (74-106); Phosphorus 4.4 mg/dL (2.5-4.9); Potassium 4.6 mmol/L (3.5-5.1); Sodium Level 129 mmol/L (136-145)
[2021-04-16] MEDS: INSULIN -REGULAR HUMAN 50 UNIT/0.5 ML ML SQ SCH ×4 (07:30→20:45)
[2021-04-16] MEDS: ENSURE HIGH PROTEIN 237 ML CAN PO SCH ×2 (09:00→20:48)
[2021-04-16] MEDS: ASPIRIN EC 81 MG TAB PO SCH (09:11)
[2021-04-16] MEDS: levoFLOXacin 500 MG TAB PO SCH (09:12)
[2021-04-16] MEDS: FLUCONAZOLE 100 MG TAB PO SCH (09:12)
[2021-04-16] MEDS: THIAMINE HCL 100 MG TABLET PO SCH (09:12)
[2021-04-16] MEDS: VITAMIN D 1000 UNIT TAB PO SCH (09:12)
[2021-04-16] MEDS: DOCUSATE NA 100 MG CAP PO SCH ×2 (09:12→20:47)
[2021-04-16] MEDS: ASCORBIC ACID 500 MG TABLET PO SCH ×4 (09:12→20:47)
[2021-04-16] MEDS: FENOFIBRATE 160 MG TAB PO SCH (09:12)
[2021-04-16] MEDS: ZINC SULFATE 220 MG CAP PO SCH (09:13)
[2021-04-16] MEDS: FAMOTIDINE 20 MG TAB PO SCH ×2 (09:13→20:47)
[2021-04-16] MEDS: FUROSEMIDE 20 MG/ 2ML VIAL IV SCH (09:13)
[2021-04-16] MEDS: METHYLPREDNISOLONE 40 MG INJ IV SCH ×2 (09:13→20:47)
[2021-04-16] MEDS: atenoloL 25 MG TAB PO SCH (09:42)
--- NOTE | 2021-04-16 16:39 | P.PN ---
Subjective Date of Service: 04/16/21 Primary Care Provider: Kaden Chief Complaint: covid pneumonia Patient is now tolerating high-flow oxygen He is still dependent on 100% FiO2. Physical Examination - Vital Signs Temperature: 97.1 F Blood Pressure: 131/68 Pulse: 78 Respirations: 26 Pulse Ox (%): 92 - Physical Exam General: Alert, In no apparent distress, Oriented x3 HEENT: Mucous membr. moist/pink Neck: JVD not distended Respiratory: Other (Nonlabored breathing) Cardiovascular: Regular rate/rhythm, Normal S1 S2 Gastrointestinal: Soft and benign, Non-distended Musculoskeletal: No swelling Integumentary: No rashes Neurological: Normal strength at 5/5 x4 extr Assessment And Plan - Current Problems (Diagnosis) (1) Acute respiratory failure with hypoxia Current Visit: Yes Status: Acute (2) Pneumonia due to COVID-19 virus Current Visit: Yes Status: Acute (3) Essential hypertension Current Visit: Yes Status: Acute Physician Review Additional Text: Problem list Acute hypoxemic respiratory failure secondary to COVID-19 pneumonia Steroid-induced hyperglycemia Hypertension Hyponatremia, mild; acute Leukocytosis Continue IV steroid, vitamin supplementation and zinc supplementation. Completed Baracitinib. Completed Remdesivir. Wean oxygen as tolerated. A1c: 6.0 Insulin sliding scale. Titrate Lantus insulin. Continue IV Lasix. Leukocytosis unchanged. Likely steroid induced. Continue antibiotics.
[2021-04-16] MEDS: INSULIN GLARGINE 100 UNITS/ML SQ SCH (17:00)
[2021-04-16] MEDS: RIVAROXABAN 20 MG TABLET PO SCH (17:38)
[2021-04-16] MEDS: ALPRAZOLAM 0.5 MG TABLET PO PRN ×2 (22:05→22:06)
[2021-04-17] MEDS: MORPHINE 2 MG/ML SYR IV PRN (03:02)
[2021-04-17 05:56] LABS: Absolute Lymphocytes (CBC) 1.1 K/uL (0.7-4.9); Basophils % 0.1 % (0-1.3); RBC Red Blood Cell Count 5.05 M/uL (4.33-5.43)
[2021-04-17 06:06] LABS: Albumin 2.5 g/dL (3.4-5.0); BUN Blood Urea Nitrogen 31 mg/dL (7-18); Bicarbonate 34 mmol/L (21-32); Glucose Level 154 mg/dL (74-106); Phosphorus 3.7 mg/dL (2.5-4.9); Potassium 4.2 mmol/L (3.5-5.1); Sodium Level 129 mmol/L (136-145)
[2021-04-17] MEDS: INSULIN -REGULAR HUMAN 50 UNIT/0.5 ML ML SQ SCH ×4 (07:30→21:42)
[2021-04-17] MEDS: FENOFIBRATE 160 MG TAB PO SCH (08:01)
[2021-04-17] MEDS: ZINC SULFATE 220 MG CAP PO SCH (08:01)
[2021-04-17] MEDS: FLUCONAZOLE 100 MG TAB PO SCH (08:01)
[2021-04-17] MEDS: FAMOTIDINE 20 MG TAB PO SCH ×2 (08:01→20:58)
[2021-04-17] MEDS: THIAMINE HCL 100 MG TABLET PO SCH (08:02)
[2021-04-17] MEDS: levoFLOXacin 500 MG TAB PO SCH (08:02)
[2021-04-17] MEDS: ASCORBIC ACID 500 MG TABLET PO SCH ×4 (08:02→20:57)
[2021-04-17] MEDS: VITAMIN D 1000 UNIT TAB PO SCH (08:02)
[2021-04-17] MEDS: ASPIRIN EC 81 MG TAB PO SCH (08:02)
[2021-04-17] MEDS: ENSURE HIGH PROTEIN 237 ML CAN PO SCH ×2 (08:03→20:57)
[2021-04-17] MEDS: DOCUSATE NA 100 MG CAP PO SCH ×2 (08:03→20:57)
[2021-04-17] MEDS: METHYLPREDNISOLONE 40 MG INJ IV SCH ×2 (08:03→20:58)
[2021-04-17] MEDS: atenoloL 25 MG TAB PO SCH (08:15)
[2021-04-17] MEDS: FUROSEMIDE 20 MG/ 2ML VIAL IV SCH (08:16)
--- NOTE | 2021-04-17 14:52 | P.PN ---
Subjective Date of Service: 04/17/21 Primary Care Provider: Kaden Chief Complaint: covid pneumonia Patient is maintained tolerating high-flow oxygen He is still dependent on 100% FiO2. Physical Examination - Vital Signs Temperature: 97.2 F Blood Pressure: 128/65 Pulse: 63 Respirations: 18 Pulse Ox (%): 86 - Physical Exam General: Alert, In no apparent distress Neck: JVD not distended Respiratory: Other (Nonlabored breathing) Cardiovascular: Regular rate/rhythm, Normal S1 S2 Gastrointestinal: Soft and benign, Non-distended Musculoskeletal: No swelling Integumentary: No rashes Neurological: Normal strength at 5/5 x4 extr Assessment And Plan - Current Problems (Diagnosis) (1) Acute respiratory failure with hypoxia Current Visit: Yes Status: Acute (2) Pneumonia due to COVID-19 virus Current Visit: Yes Status: Acute (3) Essential hypertension Current Visit: Yes Status: Acute Physician Review Additional Text: Problem list Acute hypoxemic respiratory failure secondary to COVID-19 pneumonia Steroid-induced hyperglycemia Hypertension Hyponatremia, mild; acute Leukocytosis Continue IV steroid, vitamin supplementation and zinc supplementation. Completed Baracitinib. Completed Remdesivir. Wean FiO2 as tolerated. A1c: 6.0 Insulin sliding scale. Titrate Lantus insulin. Continue IV Lasix. Leukocytosis Likely steroid induced. Continue empiric antibiotics
[2021-04-17] MEDS: RIVAROXABAN 20 MG TABLET PO SCH (16:24)
[2021-04-17] MEDS: INSULIN GLARGINE 100 UNITS/ML SQ SCH (16:24)
[2021-04-17] MEDS: ALPRAZOLAM 0.5 MG TABLET PO PRN (21:50)
[2021-04-18] MEDS: MORPHINE 2 MG/ML SYR IV PRN (02:19)
[2021-04-18 04:17] LABS: Absolute Lymphocytes (CBC) 1.2 K/uL (0.7-4.9); Basophils % 0.2 % (0-1.3); Hematocrit 44.7 % (39.6-49.0); Lymphocytes % 5.6 % (15.3-44.8); MPV 9.8 fL (7.6-11.3); RBC Red Blood Cell Count 4.87 M/uL (4.33-5.43)
[2021-04-18 04:19] LABS: Albumin 2.6 g/dL (3.4-5.0); BUN Blood Urea Nitrogen 31 mg/dL (7-18); Bicarbonate 34 mmol/L (21-32); Glucose Level 159 mg/dL (74-106); Phosphorus 3.9 mg/dL (2.5-4.9); Potassium 4.5 mmol/L (3.5-5.1); Sodium Level 128 mmol/L (136-145)
[2021-04-18] MEDS: INSULIN -REGULAR HUMAN 50 UNIT/0.5 ML ML SQ SCH ×4 (07:30→21:00)
[2021-04-18] MEDS: VITAMIN D 1000 UNIT TAB PO SCH (09:00)
[2021-04-18] MEDS: ASPIRIN EC 81 MG TAB PO SCH (09:00)
[2021-04-18] MEDS: FENOFIBRATE 160 MG TAB PO SCH (09:00)
[2021-04-18] MEDS: FAMOTIDINE 20 MG TAB PO SCH ×2 (09:00→21:47)
[2021-04-18] MEDS: ZINC SULFATE 220 MG CAP PO SCH (09:00)
[2021-04-18] MEDS: ENSURE HIGH PROTEIN 237 ML CAN PO SCH ×2 (09:00→21:00)
[2021-04-18] MEDS: atenoloL 25 MG TAB PO SCH (09:00)
[2021-04-18] MEDS: DOCUSATE NA 100 MG CAP PO SCH ×2 (09:01→21:47)
[2021-04-18] MEDS: THIAMINE HCL 100 MG TABLET PO SCH (09:01)
[2021-04-18] MEDS: METHYLPREDNISOLONE 40 MG INJ IV SCH ×2 (09:01→21:48)
[2021-04-18] MEDS: ASCORBIC ACID 500 MG TABLET PO SCH ×4 (09:01→21:00)
[2021-04-18] MEDS: FUROSEMIDE 20 MG/ 2ML VIAL IV SCH (09:02)
--- NOTE | 2021-04-18 13:23 | P.PN ---
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 Physical Examination - Vital Signs Temperature: 97.6 F Blood Pressure: 121/71 Pulse: 74 Respirations: 18 Pulse Ox (%): 92 - Physical Exam General: Alert, In no apparent distress Respiratory: Other (Nonlabored breathing) Cardiovascular: No edema, Regular rate/rhythm, Normal S1 S2 Gastrointestinal: Soft and benign, Non-distended Musculoskeletal: No swelling Integumentary: No rashes Neurological: Normal strength at 5/5 x4 extr Assessment And Plan - Current Problems (Diagnosis) (1) Acute respiratory failure with hypoxia Current Visit: Yes Status: Acute (2) Pneumonia due to COVID-19 virus Current Visit: Yes Status: Acute (3) Essential hypertension Current Visit: Yes Status: Acute Physician Review Additional Text: Problem list Acute hypoxemic respiratory failure secondary to COVID-19 pneumonia Steroid-induced hyperglycemia Hypertension Hyponatremia, mild; acute Leukocytosis Continue IV steroid, vitamin supplementation and zinc supplementation. Completed Baracitinib. Completed Remdesivir. Wean FiO2 as tolerated. A1c: 6.0 Insulin sliding scale. Titrate Lantus insulin. Continue IV Lasix. Leukocytosis Likely steroid induced. Fluctuating sodium level. Continue to monitor BMP.
[2021-04-18] MEDS: RIVAROXABAN 20 MG TABLET PO SCH (17:00)
[2021-04-18] MEDS: INSULIN GLARGINE 100 UNITS/ML SQ SCH (17:00)
[2021-04-18] MEDS: ALPRAZOLAM 0.5 MG TABLET PO PRN (21:58)
[2021-04-19 04:25] LABS: Absolute Lymphocytes (CBC) 1.5 K/uL (0.7-4.9); Basophils % 0.2 % (0-1.3); Hematocrit 44.4 % (39.6-49.0); Lymphocytes % 6.5 % (15.3-44.8); RBC Red Blood Cell Count 4.83 M/uL (4.33-5.43)
[2021-04-19 04:33] LABS: Albumin 2.6 g/dL (3.4-5.0); BUN Blood Urea Nitrogen 29 mg/dL (7-18); Bicarbonate 35 mmol/L (21-32); Glucose Level 108 mg/dL (74-106); Phosphorus 3.9 mg/dL (2.5-4.9); Potassium 4.1 mmol/L (3.5-5.1); Sodium Level 128 mmol/L (136-145)
[2021-04-19] MEDS: ALPRAZOLAM 0.5 MG TABLET PO PRN ×2 (04:42→15:03)
[2021-04-19 05:01] LABS: Blood Morphology Comment NOT SEEN (NOT SEEN); Platelet Estimate ADEQ
[2021-04-19] MEDS: INSULIN -REGULAR HUMAN 50 UNIT/0.5 ML ML SQ SCH ×4 (07:30→21:00)
[2021-04-19] MEDS: METHYLPREDNISOLONE 40 MG INJ IV SCH ×2 (08:29→20:10)
[2021-04-19] MEDS: ASPIRIN EC 81 MG TAB PO SCH (08:29)
[2021-04-19] MEDS: THIAMINE HCL 100 MG TABLET PO SCH (08:29)
[2021-04-19] MEDS: DOCUSATE NA 100 MG CAP PO SCH ×2 (08:30→20:10)
[2021-04-19] MEDS: FAMOTIDINE 20 MG TAB PO SCH ×2 (08:30→20:10)
[2021-04-19] MEDS: VITAMIN D 1000 UNIT TAB PO SCH (08:30)
[2021-04-19] MEDS: FENOFIBRATE 160 MG TAB PO SCH (08:30)
[2021-04-19] MEDS: ASCORBIC ACID 500 MG TABLET PO SCH ×4 (08:30→20:10)
[2021-04-19] MEDS: atenoloL 25 MG TAB PO SCH (08:31)
[2021-04-19] MEDS: ZINC SULFATE 220 MG CAP PO SCH (08:31)
[2021-04-19] MEDS: FUROSEMIDE 20 MG/ 2ML VIAL IV SCH (08:31)
[2021-04-19] MEDS: ENSURE HIGH PROTEIN 237 ML CAN PO SCH ×2 (08:32→21:00)
--- NOTE | 2021-04-19 16:37 | P.PN ---
Subjective Date of Service: 04/19/21 Primary Care Provider: Kaden Chief Complaint: covid pneumonia Patient's respiratory condition has not improved over several days. He still remain on high-flow oxygen with 100% FiO2. Physical Examination - Vital Signs Temperature: 99.9 F Blood Pressure: 129/72 Pulse: 90 Respirations: 28 Pulse Ox (%): 93 - Physical Exam General: Alert, In no apparent distress Respiratory: Other (Nonlabored breathing) Cardiovascular: No edema, Regular rate/rhythm, Normal S1 S2 Gastrointestinal: Soft and benign, Non-distended Musculoskeletal: No swelling Integumentary: No rashes Neurological: Normal strength at 5/5 x4 extr Assessment And Plan - Current Problems (Diagnosis) (1) Acute respiratory failure with hypoxia Current Visit: Yes Status: Acute (2) Pneumonia due to COVID-19 virus Current Visit: Yes Status: Acute (3) Essential hypertension Current Visit: Yes Status: Acute - Plan Continue IV steroid, vitamin supplementation and zinc supplementation. Patient completed Baracitinib. Pulmonary is following. Completed Remdesivir. Monitor inflammatory markers. Leukocytosis unchanged and likely steroid induced. Wean oxygen as tolerated. Continue home antihypertensives. Blood sugar readings are better. Continue Insulin sliding scale and Lantus insulin for hyperglycemia. Physician Review Additional Text: Problem list Acute hypoxemic respiratory failure secondary to COVID-19 pneumonia Steroid-induced hyperglycemia Hypertension Hyponatremia, mild; acute Leukocytosis Continue IV steroid, vitamin supplementation and zinc supplementation. Completed Baracitinib. Completed Remdesivir. Wean FiO2 as tolerated. A1c: 6.0 Blood sugar readings within acceptable range. Continue Insulin sliding scale and current dose Lantus insulin. On IV Lasix. Leukocytosis Likely steroid induced. Fluctuating sodium level but mostly hyponatremic Continue to monitor BMP.
[2021-04-19] MEDS: RIVAROXABAN 20 MG TABLET PO SCH (17:00)
[2021-04-19] MEDS: INSULIN GLARGINE 100 UNITS/ML SQ SCH (17:00)
[2021-04-20] MEDS ORDERED: NA CHLORIDE 0.9% 500 ML IV ONE (00:38)
[2021-04-20] MEDS ORDERED: NA CHLORIDE 0.9% 500 ML ONE (01:06)
[2021-04-20 04:32] LABS: Absolute Lymphocytes (CBC) 1.3 K/uL (0.7-4.9); Basophils % 0.2 % (0-1.3); Hematocrit 40.2 % (39.6-49.0); Lymphocytes % 6.4 % (15.3-44.8); MPV 9.7 fL (7.6-11.3); RBC Red Blood Cell Count 4.37 M/uL (4.33-5.43)
[2021-04-20 04:54] LABS: ALT/SGPT 20 U/L (12-78); AST/SGOT 29 U/L (15-37); Albumin 2.4 g/dL (3.4-5.0); Alkaline Phosphatase 64 U/L (45-117); BUN Blood Urea Nitrogen 24 mg/dL (7-18); Bicarbonate 35 mmol/L (21-32); Bilirubin Direct 0.4 mg/dL (0-0.2); Bilirubin Total 1.4 mg/dL (0.2-1.0); Ferritin 1598.1 ng/mL (26-388); Glucose Level 145 mg/dL (74-106); Potassium 3.9 mmol/L (3.5-5.1); Protein, Total 5.4 g/dL (6.4-8.2); Sodium Level 127 mmol/L (136-145)
--- NOTE | 2021-04-20 06:19 | P.PN ---
Subjective Date of Service: 04/20/21 Primary Care Provider: Kaden Chief Complaint: covid pneumonia Subjective: No new changes (still requiring 100% HFNC, reports ok appetite, +BM in the last 2 days, not moving around too much due to hypoxia. inflammatory markers improved slightly.) Review of Systems 10-point ROS is otherwise unremarkable Physical Examination - Vital Signs Temperature: 97 F Blood Pressure: 129/72 Pulse: 56 Respirations: 76 Pulse Ox (%): 94 Assessment & Plan Physician Review Additional Text: Physical Exam Gen: NAD HEENT: normal conjunctiva, sclera anicteric Pulm: nonlabored on 100% HFNC CV: regular rate/rhythm, no edema Abd: soft, nontender, nondistended MSK: no joint tenderness Neuro: normal speech, moves all extremities, appears somewhat depressed Problem list Acute hypoxemic respiratory failure secondary to COVID-19 pneumonia Steroid-induced hyperglycemia Hypertension Hyponatremia, mild; acute hypochloremic alkalosis Leukocytosis Continue steroid, vit D, will dc Vit C and zince Completed Baracitinib. Completed Remdesivir. Wean FiO2 as tolerated. A1c: 6.0 Glc better controlled, titrate lantus as needed possibly contraction alkalosis and hyponatremia. will dc lasix, consult nephrology Leukocytosis Likely steroid induced. CXR this morning is worse Dispo: prolonged hospitalization updated 04/20 Time Spent Managing Pts Care (In Minutes): 35
[2021-04-20] MEDS: INSULIN -REGULAR HUMAN 50 UNIT/0.5 ML ML SQ SCH ×4 (07:30→20:43)
--- NOTE | 2021-04-20 08:38 | RAD REPORT ---
EXAM DESCRIPTION: RAD - Chest Single View - 04/20/2021 4:49 am CLINICAL HISTORY: f/u effusions Chest pain. COMPARISON: Chest Single View dated 04/15/2021; Chest Single View dated 04/10/2021; Chest Single View da gustavo 04/07/2021; Chest Single View dated 04/03/2021 FINDINGS: Portable technique limits examination quality. Moderate bilateral airspace opacity is present, greater on the left, significantly progressive since comparative study. This most likely is related to worsening COVID pneumonia. The heart is normal in s ize. No displaced fractures.
[2021-04-20] MEDS: VITAMIN D 1000 UNIT TAB PO SCH (08:54)
[2021-04-20] MEDS: ASPIRIN EC 81 MG TAB PO SCH (08:54)
[2021-04-20] MEDS: FAMOTIDINE 20 MG TAB PO SCH ×2 (08:54→20:41)
[2021-04-20] MEDS: THIAMINE HCL 100 MG TABLET PO SCH (08:54)
[2021-04-20] MEDS: FUROSEMIDE 20 MG/ 2ML VIAL IV SCH (08:54)
[2021-04-20] MEDS: ASCORBIC ACID 500 MG TABLET PO SCH ×2 (08:55→12:49)
[2021-04-20] MEDS: FENOFIBRATE 160 MG TAB PO SCH (08:55)
[2021-04-20] MEDS: ZINC SULFATE 220 MG CAP PO SCH (08:55)
[2021-04-20] MEDS: DOCUSATE NA 100 MG CAP PO SCH ×2 (08:55→20:41)
[2021-04-20] MEDS: METHYLPREDNISOLONE 40 MG INJ IV SCH ×2 (08:55→20:41)
[2021-04-20] MEDS: atenoloL 25 MG TAB PO SCH (09:00)
[2021-04-20] MEDS: ENSURE HIGH PROTEIN 237 ML CAN PO SCH ×2 (09:00→20:43)
[2021-04-20] MEDS: NA CHLORIDE 0.9% 1,000 ML IV SCH (12:00)
--- NOTE | 2021-04-20 13:55 | CON ---
Date of Consultation: 04/20/2021 Reason For Consultation: Alkalosis, hyponatremia. History Of Present Illness: This is a 65-year-old gentleman with significant past medical history of hypertension, the patient was admitted on March 30 with COVID pneumonia secondary to shortness of breath, found to have hyponatremia. The patient had severe leukocytosis. The patient treated. The patient has been maintained on BiPAP and high-flow. Did not require any intubation. The patient developed hyponatremia. For that reason, we have been consulted. His alkalosis got worse. Past Medical History: Includes hypertension. Past Surgical History: Left knee surgery. Family History: Positive for hypertension and Alzheimer. Social History: Denied smoking. Active alcohol. Denied drugs abuse. Allergies: NO KNOWN DRUGS ALLERGY. Review of Systems: Head and Neck: No red eye. No ear pain. GI: Decreased intake. : No polyuria. No dysuria. No hematuria. Make Up Artist: Not applicable. Respiratory: Has shortness of breath. Has cough. Cardiovascular: No chest pain. Endocrine: No polydipsia. Skin: No rash. Neuro: Generalized weakness. Musculoskeletal: Low back pain. Home Medications: Include atenolol, amlodipine, prednisone, azithromycin, omeprazole. Current Medications: In the hospital include vitamin C, aspirin, vitamin D, Pepcid, fenofibrate, hydralazine, Solu-Medrol, Zofran, Xarelto, thiamin, and zinc. Physical Examination: Vital Signs: When I saw the patient; blood pressure 103/58, pulse of 74, afebrile. The patient had good urine output of 1 L, negative on the last few days. Chest: Clear to auscultation. Heart: S1, S2. Regular. Abdomen: Soft, nontender. Extremity: No edema. Neurologic: Alert. No focality. Laboratory Data: WBC 20.4, H and H 14.1/40.2. Sodium 127, potassium 3.9, bicarb 35, BUN 24, creatinine 0.6, calcium 7.8. Ferritin is down to 15,000. TSH 1. Urinalysis; specific gravity of 1.005 that is on admission. Assessment And Plan: 1. Hyponatremia secondary to depletional. I am going to start the patient on normal saline 50 per hour and we will monitor. We will discontinue Lasix. We will send for urine electrolyte and uric acid. No point from sending of cortisol as the patient was on steroid. We will monitor the patient. 2. Contraction alkalosis. We will start the patient on gentle hydration. 3. COVID pneumonia with leukocytosis. We will follow up with primary and Pulmonary. Repeated culture was negative. Time spent examining the patient [id number] placing order discussing with the patient reviewing data discussing the case with all of our subspecialty including hospitalist 45 minutes PABLITO Voice ID: [id number] Report ID: [id number] [email or web address]
[2021-04-20] MEDS: INSULIN GLARGINE 100 UNITS/ML SQ SCH (17:00)
[2021-04-20] MEDS: RIVAROXABAN 20 MG TABLET PO SCH (17:10)
[2021-04-20] MEDS: ALPRAZOLAM 0.5 MG TABLET PO PRN (18:10)
[2021-04-21 04:36] LABS: Hematocrit 36.8 % (39.6-49.0); MPV 9.8 fL (7.6-11.3); RBC Red Blood Cell Count 4.04 M/uL (4.33-5.43)
[2021-04-21 05:03] LABS: Albumin 2.3 g/dL (3.4-5.0); BUN Blood Urea Nitrogen 19 mg/dL (7-18); Bicarbonate 32 mmol/L (21-32); Glucose Level 127 mg/dL (74-106); Magnesium 2.2 mg/dL (1.8-2.4); Phosphorus 3.2 mg/dL (2.5-4.9); Potassium 3.6 mmol/L (3.5-5.1); Sodium Level 130 mmol/L (136-145); Uric Acid 2.2 mg/dL (3.5-7.2)
--- NOTE | 2021-04-21 06:37 | P.PN ---
Subjective Date of Service: 04/21/21 Primary Care Provider: Kaden Chief Complaint: covid pneumonia Subjective: Improving (Patient feels better today, received some IV fluids yesterday. Feels like he is able to take a deeper breath today. Still requiring 100% FiO2 on high flow nasal cannula. In better spirits today, no new complaints, no dysuria, no fever/chills) Review of Systems 10-point ROS is otherwise unremarkable Physical Examination - Vital Signs Temperature: 96.9 F Blood Pressure: 108/55 Pulse: 72 Respirations: 18 Pulse Ox (%): 96 Assessment & Plan Physician Review Additional Text: Physical Exam Gen: NAD HEENT: normal conjunctiva, sclera anicteric Pulm: nonlabored on 100% HFNC CV: regular rate/rhythm, no edema Abd: soft, nontender, nondistended MSK: no joint tenderness Neuro: normal speech, moves all extremities Problem list Acute hypoxemic respiratory failure secondary to COVID-19 pneumonia Steroid-induced hyperglycemia Hypertension Hyponatremia, mild; acute hypochloremic alkalosis Leukocytosis Depression Continue steroid, vit D Completed Baracitinib. Completed Remdesivir. Wean FiO2 as tolerated. A1c: 6.0 Glc better controlled, titrate lantus as needed possibly contraction alkalosis and hyponatremia. Discontinued Lasix, nephrology consulted, given gentle IV fluids Suspect leukocytosis is steroid-induced, he did complete nearly 2 weeks of Levaquin from Dispo: prolonged hospitalization, refused LTAC updated 04/20 Time Spent Managing Pts Care (In Minutes): 35
[2021-04-21] MEDS: INSULIN -REGULAR HUMAN 50 UNIT/0.5 ML ML SQ SCH ×4 (07:30→21:00)
[2021-04-21] MEDS: NA CHLORIDE 0.9% 1,000 ML IV SCH (08:00)
[2021-04-21] MEDS: VITAMIN D 1000 UNIT TAB PO SCH (08:38)
[2021-04-21] MEDS: ASPIRIN EC 81 MG TAB PO SCH (08:38)
[2021-04-21] MEDS: atenoloL 25 MG TAB PO SCH (08:38)
[2021-04-21] MEDS: FAMOTIDINE 20 MG TAB PO SCH ×2 (08:38→21:26)
[2021-04-21] MEDS: METHYLPREDNISOLONE 40 MG INJ IV SCH ×2 (08:38→21:26)
[2021-04-21] MEDS: DOCUSATE NA 100 MG CAP PO SCH ×2 (08:38→21:26)
[2021-04-21] MEDS: SERTRALINE HCL 50 MG TAB PO SCH (08:38)
[2021-04-21] MEDS: FENOFIBRATE 160 MG TAB PO SCH (08:38)
[2021-04-21] MEDS: THIAMINE HCL 100 MG TABLET PO SCH (08:38)
[2021-04-21] MEDS: ENSURE HIGH PROTEIN 237 ML CAN PO SCH ×2 (08:39→21:00)
[2021-04-21] MEDS ORDERED: POTASSIUM CL SA 10 MEQ TAB PO ONE (09:52)
--- NOTE | 2021-04-21 12:54 | PN ---
Date of Progress Note: 04/21/2021 Subjective: The patient was admitted with COVID pneumonia. The patient developed hyponatremia secon fabien to depletional. Physical Examination: Vital Signs: When I saw the patient; blood pressure 124/60, pulse of 72, afebrile. Chest: Faint rales bilateral. Heart: S1, S2. Regular. Abdomen: Soft, nontender. Extremities: No edema. Neurologic: Alert. No focality. Laboratory Data: WBC 19.3, H and H 13.1/36.8. Sodium 130, potassium 3.6, bicarb 32, BUN 19, creatin ine 0.4, GFR above 90, uric acid 2.2, calcium 7.6, phosphorus 3.2, magnesium 2.2. Current Medications: The patient on include atenolol 25, hydralazine, fenofibrate, aspirin, Zoloft, Zofran, insulin. Assessment And Plan: 1.Hyponatremia secondary to atypical pneumonia, depletional, recovered, currently looked to me jania l volume. I am going to discontinue normal saline and we will monitor the patient. 2.Alkalosis secondary to contraction alkalosis. Bicarb trending down nicely. Looked normal volume. We will discontinue IV fluid. 3.COVID pneumonia by Pulmonary and primary. JACE/LEANDRA Voice ID: [id number] Report ID: [id number]
[2021-04-21] MEDS: RIVAROXABAN 20 MG TABLET PO SCH (17:33)
[2021-04-21] MEDS: INSULIN GLARGINE 100 UNITS/ML SQ SCH (17:34)
[2021-04-21] MEDS: ALPRAZOLAM 0.5 MG TABLET PO PRN (21:55)
[2021-04-22 04:17] LABS: MPV 9.6 fL (7.6-11.3); RBC Red Blood Cell Count 4.13 M/uL (4.33-5.43)
[2021-04-22 04:33] LABS: Albumin 2.4 g/dL (3.4-5.0); BUN Blood Urea Nitrogen 18 mg/dL (7-18); Bicarbonate 32 mmol/L (21-32); Glucose Level 112 mg/dL (74-106); Magnesium 2.2 mg/dL (1.8-2.4); Phosphorus 2.9 mg/dL (2.5-4.9); Sodium Level 132 mmol/L (136-145)
--- NOTE | 2021-04-22 06:37 | P.PN ---
Subjective Date of Service: 04/22/21 Primary Care Provider: Kaden Chief Complaint: covid pneumonia Subjective: No new changes (more depressed) Review of Systems 10-point ROS is otherwise unremarkable Physical Examination - Vital Signs Temperature: 97.6 F Blood Pressure: 123/65 Pulse: 70 Respirations: 20 Pulse Ox (%): 94 Assessment & Plan Physician Review Additional Text: Physical Exam Gen: NAD, depressed HEENT: normal conjunctiva, sclera anicteric Pulm: mildly labored on 100% HFNC CV: regular rate/rhythm, no edema Abd: soft, nontender, nondistended MSK: no joint tenderness Neuro: normal speech, moves all extremities Problem list Acute hypoxemic respiratory failure secondary to COVID-19 pneumonia Steroid-induced hyperglycemia Hypertension Hyponatremia, mild; acute hypochloremic alkalosis Leukocytosis Depression Continue steroid, vit D Completed Baracitinib, completed Remdesivir. Wean FiO2 as tolerated. A1c: 6.0 Glc better controlled, titrate lantus as needed possibly contraction alkalosis and hyponatremia. Discontinued Lasix, nephrology consulted, given gentle IV fluids, improving Suspect leukocytosis is steroid-induced, he did complete nearly 2 weeks of Levaquin from inflammatory markers improved No significant improvement in oxygen requirement zoloft started 04/21 Code: DNR Dispo: prolonged hospitalization updated 04/22 Patient states he wishes to be DNR. I discussed with to ensure this was not his depression talking - she states they have had this discussion previously and DNR is in line with what he would want. Time Spent Managing Pts Care (In Minutes): 40
[2021-04-22] MEDS: INSULIN -REGULAR HUMAN 50 UNIT/0.5 ML ML SQ SCH ×4 (07:30→21:00)
--- NOTE | 2021-04-22 07:37 | RAD REPORT ---
EXAM DESCRIPTION: RAD - Chest Single View - 04/22/2021 4:54 am CLINICAL HISTORY: Persistent hypoxia, Covid COMPARISON: April 20 TECHNIQUE: AP portable chest image was obtained 04/22/2021 4:54 am . FINDINGS: Lung volumes are low. Bilateral interstitial and alveolar opacities are present, worse on the left. COVID pneumonia pattern is not substantially different from comparison. Heart is accentuated by the lower lung volumes. Vasculature stable from comparison. No measurable pl eural effusion and no pneumothorax. No acute bony abnormality seen. No acute aortic findings suspecte d. IMPRESSION: Left greater than right [id number] COVID-19 pneumonia pattern similar to compariso n.
[2021-04-22] MEDS: ENSURE HIGH PROTEIN 237 ML CAN PO SCH ×2 (09:00→21:00)
[2021-04-22] MEDS: atenoloL 25 MG TAB PO SCH (09:24)
[2021-04-22] MEDS: FENOFIBRATE 160 MG TAB PO SCH (09:24)
[2021-04-22] MEDS: ASPIRIN EC 81 MG TAB PO SCH (09:24)
[2021-04-22] MEDS: VITAMIN D 1000 UNIT TAB PO SCH (09:24)
[2021-04-22] MEDS: SERTRALINE HCL 50 MG TAB PO SCH (09:25)
[2021-04-22] MEDS: METHYLPREDNISOLONE 40 MG INJ IV SCH ×2 (09:25→20:06)
[2021-04-22] MEDS: DOCUSATE NA 100 MG CAP PO SCH ×2 (09:25→20:06)
[2021-04-22] MEDS: THIAMINE HCL 100 MG TABLET PO SCH (09:25)
[2021-04-22] MEDS: FAMOTIDINE 20 MG TAB PO SCH ×2 (09:25→20:06)
[2021-04-22] MEDS: INSULIN GLARGINE 100 UNITS/ML SQ SCH (16:52)
[2021-04-22] MEDS: RIVAROXABAN 10 MG TABLET PO SCH (17:00)
--- NOTE | 2021-04-22 17:58 | PN ---
Date of Progress Note: 04/22/2021 Subjective: The patient was admitted with COVID pneumonia. The patient develop hyponatremia seconda ry to depletional. The patient was started on IV fluid, recovered. Objective: Vital Signs: Blood pressure 123/65, pulse of 70, afebrile. The patient had good urine output. Chest: Faint rales. Heart: S1, S2 regular. Abdomen: Soft, nontender. Extremities: No edema. Neurologic: Alert. No focality. Laboratory Data: WBC 18.2, H and H 13.2/38. Sodium 132, potassium 4, bicarb 32, BUN 18, creatinine 0.3, calcium 7.9, phosphorus 2.9, magnesium 2.2. Ferritin down to 1300. Albumin 2.4, corrected calc ium is 9.1. Current Medications: The patient on include; 1.Aspirin. 2.Xarelto. 3.Atenolol. 4.Fenofibrate. 5.Zoloft. 6.Ensure. 7.Solu-Medrol. 8.Melatonin. 9.KCl. Assessment And Plan: 1.Hyponatremia, secondary to depletional on the recovery. I am going to continue to monitor the pat ient. Keep holding diuresis for the time being and we will monitor. We will hold IV fluid. 2.Contraction alkalosis. We will try to establish better volume control for the patient. 3.Hyperglycemia. Continue current insulin dose. JACE/LEANDRA Voice ID: [id number] Report ID: [id number]
[2021-04-22] MEDS: MELATONIN 5 MG TABLET PO PRN (20:06)
[2021-04-22] MEDS: ALPRAZOLAM 0.5 MG TABLET PO PRN (20:06)
[2021-04-23 04:51] LABS: Hematocrit 37.6 % (39.6-49.0); MPV 9.8 fL (7.6-11.3); RBC Red Blood Cell Count 4.05 M/uL (4.33-5.43)
[2021-04-23 05:18] LABS: Albumin 2.4 g/dL (3.4-5.0); BUN Blood Urea Nitrogen 20 mg/dL (7-18); Bicarbonate 31 mmol/L (21-32); Ferritin 1328.9 ng/mL (26-388); Glucose Level 105 mg/dL (74-106); Magnesium 2.2 mg/dL (1.8-2.4); Potassium 3.9 mmol/L (3.5-5.1); Sodium Level 134 mmol/L (136-145)
--- NOTE | 2021-04-23 06:11 | P.PN ---
Subjective Date of Service: 04/23/21 Primary Care Provider: Kaden Chief Complaint: covid pneumonia Subjective: No new changes (feels slightly better today, still very hypoxic with movement. needing 100% fio2. depressed. +flatus) Review of Systems 10-point ROS is otherwise unremarkable Physical Examination - Vital Signs Temperature: 97.1 F Blood Pressure: 122/65 Pulse: 64 Respirations: 22 Pulse Ox (%): 98 Assessment & Plan Physician Review Additional Text: Physical Exam Gen: NAD, depressed HEENT: normal conjunctiva, sclera anicteric Pulm: mildly labored on 100% HFNC CV: regular rate/rhythm, no edema Abd: soft, nontender, nondistended MSK: no joint tenderness Neuro: normal speech, moves all extremities Problem list Acute hypoxemic respiratory failure secondary to COVID-19 pneumonia Steroid-induced hyperglycemia Hypertension Hyponatremia, mild; acute hypochloremic alkalosis Leukocytosis Depression Continue steroid, vit D Completed Baracitinib, completed Remdesivir. Wean FiO2 as tolerated. A1c: 6.0; Glc better controlled, titrate lantus as needed Suspect leukocytosis is steroid-induced, he did complete nearly 2 weeks of Levaquin from inflammatory markers improved No significant improvement in oxygen requirement zoloft started 04/21 Code: Full Dispo: prolonged hospitalization updated 04/23 Patient initially stated he wanted to be DNR on 04/22, I confirmed this was not just his depression and frustration. I discussed with the who stated it is somewhat in line with what he has previously said. However, after had a discussion with the patient, the patient decided to continue with full code Time Spent Managing Pts Care (In Minutes): 35
[2021-04-23] MEDS: INSULIN -REGULAR HUMAN 50 UNIT/0.5 ML ML SQ SCH ×4 (07:30→21:00)
[2021-04-23] MEDS: ENSURE HIGH PROTEIN 237 ML CAN PO SCH ×2 (09:00→21:00)
[2021-04-23] MEDS: ASPIRIN EC 81 MG TAB PO SCH (09:32)
[2021-04-23] MEDS: DOCUSATE NA 100 MG CAP PO SCH ×2 (09:32→21:10)
[2021-04-23] MEDS: ALPRAZOLAM 0.5 MG TABLET PO PRN ×3 (09:33→21:11)
[2021-04-23] MEDS: atenoloL 25 MG TAB PO SCH (09:33)
[2021-04-23] MEDS: METHYLPREDNISOLONE 40 MG INJ IV SCH ×2 (09:33→21:11)
[2021-04-23] MEDS: THIAMINE HCL 100 MG TABLET PO SCH (09:33)
[2021-04-23] MEDS: FENOFIBRATE 160 MG TAB PO SCH (09:33)
[2021-04-23] MEDS: VITAMIN D 1000 UNIT TAB PO SCH (09:34)
[2021-04-23] MEDS: FAMOTIDINE 20 MG TAB PO SCH ×2 (09:34→21:10)
[2021-04-23] MEDS: SERTRALINE HCL 50 MG TAB PO SCH (09:35)
--- NOTE | 2021-04-23 09:51 | P.PN ---
Subjective Date of Service: 04/23/21 Primary Care Provider: Kaden Chief Complaint: covid pneumonia Subjective: Other (complains of anxiety and shortness of breath.) Physical Examination - Vital Signs Temperature: 97.1 F Blood Pressure: 122/65 Pulse: 64 Respirations: 22 Pulse Ox (%): 98 - Physical Exam General: Mild distress HEENT: Atraumatic, Normocephalic Neck: Supple Respiratory: Other (symmetric chest expansion) Cardiovascular: Normal S1 S2, No rubs, No murmurs Gastrointestinal: Soft and benign Musculoskeletal: No clubbing Integumentary: No warmth Neurological: Normal speech, Normal tone Urinary: Other (no bladder distention) Assessment And Plan - Plan # Hyponatremia secondary to appropriate ADH release from acute respiratory issues, anxiety, & low solute intake Respiratory management per other services Avoid hypokalemia. KCl 20 mEq by mouth ordered for today. replete KCl when necessary to a goal of serum K of 4.0 4 from hyponatremia correction. Encouraged to increase by mouth solid food intake # Acute respiratory failure from [place] with pneumonia F/u BNP, Trop On O2 support Incentive spirometry every 2 hours when awake Mngt per other services # Hypertension Continue current antihypertensive medication regimen # Alkalosis Monitor # Anxiety Xanax prn Sertraline # Hyperglycemia Insulin dosing per primary team # CODE STATUS Full code
[2021-04-23 15:00] LABS: Urine Appearance CLOUDY (Clear); Urine Bilirubin NEGATIVE (Negative); Urine Blood NEGATIVE (Negative); Urine Color YELLOW (Yellow); Urine Glucose 3+ (Negative); Urine Protein NEGATIVE (Negative); Urine Specific Gravity 1.025 (1.005-1.030); Urine pH 6.5 (5.0-7.0)
[2021-04-23 15:05] LABS: Urine Microscopic Reflex ORDER UMIC
[2021-04-23 15:16] LABS: Urine Bacteria <20 /HPF (NONE SEEN); Urine RBC <5 /HPF (NONE SEEN)
[2021-04-23 15:17] LABS: Urine Amorphous Sediment 1+ /HPF (NONE SEEN); Urine Mucus 4+ /HPF (NONE SEEN)
[2021-04-23] MEDS: INSULIN GLARGINE 100 UNITS/ML SQ SCH (17:00)
[2021-04-23] MEDS: RIVAROXABAN 10 MG TABLET PO SCH (17:10)
[2021-04-23 18:18] LABS: Arterial Blood Carboxyhemoglob 1.3 % (0-1.5)
[2021-04-23 19:14] LABS: UR PROTEIN 32.2 mg/dL (<11.9); Urine Protein/Creatinine Ratio 0.46 ratio (<0.15)
[2021-04-24] MEDS: ALPRAZOLAM 0.5 MG TABLET PO PRN ×3 (02:15→20:14)
[2021-04-24 04:33] LABS: Hematocrit 37.3 % (39.6-49.0); MPV 9.9 fL (7.6-11.3)
[2021-04-24 04:45] LABS: NT PRO-BNP 337 pg/mL (<125); Troponin I < 0.02 ng/mL (0.0-0.045)
[2021-04-24 04:56] LABS: Albumin 2.4 g/dL (3.4-5.0); BUN Blood Urea Nitrogen 18 mg/dL (7-18); Bicarbonate 33 mmol/L (21-32); Ferritin 1264.2 ng/mL (26-388); Glucose Level 98 mg/dL (74-106); Magnesium 2.1 mg/dL (1.8-2.4); Phosphorus 3.4 mg/dL (2.5-4.9); Potassium 3.6 mmol/L (3.5-5.1); Sodium Level 135 mmol/L (136-145)
--- NOTE | 2021-04-24 06:16 | P.PN ---
Subjective Date of Service: 04/24/21 Primary Care Provider: Kaden Chief Complaint: covid pneumonia Subjective: Improving (Feels he is made a little bit of improvement, states he is eating okay, urinating without issue, last BM was 2 days ago) Review of Systems 10-point ROS is otherwise unremarkable Physical Examination - Vital Signs Temperature: 97.1 F Blood Pressure: 133/80 Pulse: 78 Respirations: 16 Pulse Ox (%): 93 Assessment & Plan Physician Review Additional Text: Physical Exam Gen: NAD HEENT: normal conjunctiva, sclera anicteric Pulm: non-labored on 100% HFNC CV: regular rate/rhythm, no edema Abd: soft, nontender, nondistended MSK: no joint tenderness Neuro: normal speech, moves all extremities Problem list Acute hypoxemic respiratory failure secondary to COVID-19 pneumonia Steroid-induced hyperglycemia Hypertension Hyponatremia, mild; acute hypochloremic alkalosis Leukocytosis Depression Continue steroid, vit D, Completed Baracitinib, completed Remdesivir. Wean FiO2 as tolerated. A1c: 6.0; Glc better controlled, titrate lantus as needed leukocytosis is steroid-induced, he did complete nearly 2 weeks of Levaquin from inflammatory markers improved Patient with very slow progression, but does seem to be improving zoloft started 04/21 Code: Full Dispo: prolonged hospitalization Patient initially stated he wanted to be DNR on 04/22, I confirmed this was not just his depression and frustration. I discussed with the who stated it is somewhat in line with what he has previously said. However, after had a discussion with the patient, the patient decided to continue with full code Time Spent Managing Pts Care (In Minutes): 35
[2021-04-24] MEDS: INSULIN -REGULAR HUMAN 50 UNIT/0.5 ML ML SQ SCH ×4 (07:30→21:00)
[2021-04-24] MEDS: FENOFIBRATE 160 MG TAB PO SCH (07:59)
[2021-04-24] MEDS: THIAMINE HCL 100 MG TABLET PO SCH (07:59)
[2021-04-24] MEDS: SERTRALINE HCL 50 MG TAB PO SCH (07:59)
[2021-04-24] MEDS: VITAMIN D 1000 UNIT TAB PO SCH (07:59)
[2021-04-24] MEDS: ASPIRIN EC 81 MG TAB PO SCH (07:59)
[2021-04-24] MEDS: FAMOTIDINE 20 MG TAB PO SCH ×2 (07:59→20:14)
[2021-04-24] MEDS: atenoloL 25 MG TAB PO SCH (07:59)
[2021-04-24] MEDS: DOCUSATE NA 100 MG CAP PO SCH ×2 (08:00→20:14)
[2021-04-24] MEDS: METHYLPREDNISOLONE 40 MG INJ IV SCH ×2 (08:00→20:15)
[2021-04-24] MEDS: ENSURE HIGH PROTEIN 237 ML CAN PO SCH ×2 (08:01→20:15)
--- NOTE | 2021-04-24 13:21 | P.PN ---
Subjective Date of Service: 04/24/21 Primary Care Provider: Kaden Chief Complaint: covid pneumonia Subjective Pt with COVID pneumonia, had Hyponatremia Today Still on High O2 demand High Bicarb , ABG with metabolic alkalosis will add diamox Physical exam general: AAOX3, in mild to moderate distress , obese Neck; Supple, No elevated JVD chest decreased air entry , basal rales hear: RRR, normal S1,2 no murmur or rub Chest: CTAB, no rales or wheezes Abdomen: Soft , Nt Extremities No edema or ulcer # Hyponatremia secondary to appropriate ADH release from acute respiratory issues, anxiety, & low solute intake Respiratory management per other services Avoid hypokalemia. KCl 20 mEq by mouth ordered for today. replete KCl when necessary to a goal of serum K of 4.0 4 from hyponatremia correction. Encouraged to increase by mouth solid food intake # Acute respiratory failure from [place] with pneumonia F/u BNP, Trop On O2 support Incentive spirometry every 2 hours when awake Mngt per other services # Hypertension Continue current antihypertensive medication regimen # Metabolic Alkalosis will add diamox Monitor # Anxiety Xanax prn Sertraline # Hyperglycemia Insulin dosing per primary team Physical Examination - Vital Signs Temperature: 97.6 F Blood Pressure: 114/65 Pulse: 66 Respirations: 28 Pulse Ox (%): 93
[2021-04-24] MEDS: RIVAROXABAN 10 MG TABLET PO SCH (17:22)
[2021-04-24] MEDS: INSULIN GLARGINE 100 UNITS/ML SQ SCH (17:23)
[2021-04-24] MEDS ORDERED: POTASSIUM CL SA 10 MEQ TAB PO ONE ×2 (20:10→21:00)
[2021-04-24] MEDS: acetaZOLAMIDE 250 MG TAB PO SCH (20:31)
[2021-04-25] MEDS: MELATONIN 5 MG TABLET PO PRN (00:28)
[2021-04-25] MEDS: ALPRAZOLAM 0.5 MG TABLET PO PRN ×3 (01:27→21:33)
[2021-04-25 04:39] LABS: Hematocrit 37.6 % (39.6-49.0); MPV 10.1 fL (7.6-11.3); RBC Red Blood Cell Count 4.01 M/uL (4.33-5.43)
[2021-04-25 05:08] LABS: Albumin 2.5 g/dL (3.4-5.0); BUN Blood Urea Nitrogen 18 mg/dL (7-18); Bicarbonate 29 mmol/L (21-32); Ferritin 1322.5 ng/mL (26-388); Glucose Level 112 mg/dL (74-106); Magnesium 2.1 mg/dL (1.8-2.4); Phosphorus 3.6 mg/dL (2.5-4.9); Potassium 3.8 mmol/L (3.5-5.1); Sodium Level 136 mmol/L (136-145)
--- NOTE | 2021-04-25 06:15 | P.PN ---
Subjective Date of Service: 04/25/21 Primary Care Provider: Kaden Chief Complaint: covid pneumonia Subjective: Improving (Feels better this morning, still on HFNC, down to 90% now. States eating takes a lot out of him, occasionally using nonrebreather on top of high flow nasal cannula. Feels very weak, last BM 2 days ago, passing flatus) Review of Systems 10-point ROS is otherwise unremarkable Physical Examination - Vital Signs Temperature: 97.7 F Blood Pressure: 137/80 Pulse: 73 Respirations: 18 Pulse Ox (%): 92 Assessment & Plan Physician Review Additional Text: Physical Exam Gen: NAD, AOx3 HEENT: normal conjunctiva, sclera anicteric Pulm: mild-labored respirations on 90% HFNC CV: regular rate/rhythm, no edema Abd: soft, nontender, nondistended MSK: no joint tenderness Neuro: normal speech, moves all extremities Problem list Acute hypoxemic respiratory failure secondary to COVID-19 pneumonia Steroid-induced hyperglycemia Hypertension Hyponatremia, mild; acute; resolved hypochloremic alkalosis Leukocytosis Depression Continue steroid, vit D, Completed Baracitinib, completed Remdesivir. Wean FiO2 as tolerated. A1c: 6.0; Glc better controlled leukocytosis is steroid-induced, he did complete nearly 2 weeks of empiric coverage with Levaquin from inflammatory markers improved Patient with very slow progression, but does seem to be improving zoloft started 04/21 Code: Full Dispo: prolonged hospitalization; refused LTAC Time Spent Managing Pts Care (In Minutes): 35
[2021-04-25] MEDS: INSULIN -REGULAR HUMAN 50 UNIT/0.5 ML ML SQ SCH ×4 (07:30→21:32)
[2021-04-25] MEDS: THIAMINE HCL 100 MG TABLET PO SCH (08:52)
[2021-04-25] MEDS: ASPIRIN EC 81 MG TAB PO SCH (08:52)
[2021-04-25] MEDS: VITAMIN D 1000 UNIT TAB PO SCH (08:52)
[2021-04-25] MEDS: SERTRALINE HCL 50 MG TAB PO SCH (08:53)
[2021-04-25] MEDS: FAMOTIDINE 20 MG TAB PO SCH ×2 (08:53→21:33)
[2021-04-25] MEDS: FENOFIBRATE 160 MG TAB PO SCH (08:53)
[2021-04-25] MEDS: atenoloL 25 MG TAB PO SCH (08:53)
[2021-04-25] MEDS: DOCUSATE NA 100 MG CAP PO SCH ×2 (08:53→21:33)
[2021-04-25] MEDS: acetaZOLAMIDE 250 MG TAB PO SCH ×2 (08:53→21:32)
[2021-04-25] MEDS: ENSURE HIGH PROTEIN 237 ML CAN PO SCH ×2 (08:53→21:32)
[2021-04-25] MEDS: METHYLPREDNISOLONE 40 MG INJ IV SCH (08:54)
[2021-04-25] MEDS ORDERED: POTASSIUM CL SA 10 MEQ TAB PO ONE (09:00)
[2021-04-25] MEDS: RIVAROXABAN 10 MG TABLET PO SCH (16:29)
[2021-04-25] MEDS: INSULIN GLARGINE 100 UNITS/ML SQ SCH (16:31)
--- NOTE | 2021-04-25 18:00 | P.PN ---
Subjective Date of Service: 04/25/21 Primary Care Provider: Kaden Chief Complaint: covid pneumonia Subjective Pt with COVID pneumonia, had Hyponatremia Today Still on High O2 demand Bicarb improved diamox for 2 more days Physical exam general: AAOX3, in mild to moderate distress , obese Neck; Supple, No elevated JVD chest decreased air entry , basal rales hear: RRR, normal S1,2 no murmur or rub Chest: CTAB, no rales or wheezes Abdomen: Soft , Nt Extremities No edema or ulcer # Hyponatremia secondary to appropriate ADH release from acute respiratory issues, anxiety, & low solute intake Respiratory management per other services Avoid hypokalemia. KCl 20 mEq by mouth ordered for today. replete KCl when necessary to a goal of serum K of 4.0 4 from hyponatremia correction. Encouraged to increase by mouth solid food intake # Acute respiratory failure from [place] with pneumonia F/u BNP, Trop On O2 support Incentive spirometry every 2 hours when awake Mngt per other services # Hypertension Continue current antihypertensive medication regimen # Metabolic Alkalosis will add diamox Monitor # Anxiety Xanax prn Sertraline # Hyperglycemia Insulin dosing per primary team Physical Examination - Vital Signs Temperature: 97.5 F Blood Pressure: 119/70 Pulse: 63 Respirations: 20 Pulse Ox (%): 96
[2021-04-26] MEDS: ALPRAZOLAM 0.5 MG TABLET PO PRN (04:12)
[2021-04-26] MEDS ORDERED: MORPHINE 2 MG/ML SYR IV ONE (06:15)
[2021-04-26] MEDS ORDERED: LORazepam 2 MG/ML VIAL IV ONE (06:24)
[2021-04-26 06:32] LABS: Arterial Blood Carboxyhemoglob 1.1 % (0-1.5); Blood Gas Oxyhemoglobin 92.9 % (94-97); Blood O2 Saturation 94.8 % (92-98.5)
[2021-04-26 06:34] LABS: Absolute Lymphocytes (CBC) 1.2 K/uL (0.7-4.9); Basophils % 0.4 % (0-1.3); Hematocrit 42.1 % (39.6-49.0); Lymphocytes % 5.9 % (15.3-44.8); MPV 9.6 fL (7.6-11.3); RBC Red Blood Cell Count 4.47 M/uL (4.33-5.43)
[2021-04-26] MEDS ORDERED: MORPHINE 2 MG/ML SYR ONE (06:41)
[2021-04-26] MEDS ORDERED: MORPHINE 2 MG/ML SYR IV PRN (06:44)
[2021-04-26] MEDS ORDERED: LORazepam 2 MG/ML VIAL ONE (06:50)
--- NOTE | 2021-04-26 06:51 | P.PN ---
Subjective Date of Service: 04/26/21 Primary Care Provider: Kaden Chief Complaint: covid pneumonia Subjective: Worsening (more tachypneic, tachycardic, and hypertensive overnight / early this morning. Placed on BIPAP, SpO2 > 92%, but patient felt like he couldn't breathe. Transferred to ICU. He was ok for intubation. Improved with morphine & ativan. Big component of anxiety contributing to his clinical status) Review of Systems is unable to be obtained Physical Examination - Vital Signs Temperature: 96.6 F Blood Pressure: 172/92 Pulse: 103 Respirations: 46 Pulse Ox (%): 95 Assessment & Plan Physician Review Additional Text: Physical Exam Gen: moderate distress, alert, nods head to answer, not talking due to SOB HEENT: normal conjunctiva, sclera anicteric Pulm: labored respirations on 100% BIPAP, improved after morphine/ativan CV: sinus tachycardia, no edema Abd: soft, nontender, nondistended MSK: no joint tenderness Neuro: moves all extremities, follows commands Problem list Acute hypoxemic respiratory failure secondary to COVID-19 pneumonia Steroid-induced hyperglycemia Hypertension Hyponatremia, mild; acute; resolved hypochloremic alkalosis Leukocytosis Depression/Anxiety Continue steroid, vit D, Completed Baracitinib, completed Remdesivir. Wean FiO2 as tolerated. A1c: 6.0; monitor Glc / sliding scale leukocytosis is steroid-induced, he did complete nearly 2 weeks of empiric coverage with Levaquin from inflammatory markers pending today Has been improving up until this event afebrile, but will check cultures, repeat UA zoloft started 04/21 morphine/ativan as needed will likely need dobhoff today Code: Full Dispo: prolonged hospitalization; continue ICU level of care guarded prognosis updated this morning, she has had long discussions with patient Have decided for now: full code, but doesn't want chest compressions more than 5-10 minutes. Time Spent Managing Pts Care (In Minutes): 45
[2021-04-26 07:00] LABS: Albumin 2.9 g/dL (3.4-5.0); BUN Blood Urea Nitrogen 23 mg/dL (7-18); Bicarbonate 26 mmol/L (21-32); Glucose Level 156 mg/dL (74-106); Magnesium 2.3 mg/dL (1.8-2.4); Potassium 3.7 mmol/L (3.5-5.1); Sodium Level 138 mmol/L (136-145)
[2021-04-26 07:08] LABS: BUN Blood Urea Nitrogen 22 mg/dL (7-18); Bicarbonate 27 mmol/L (21-32); Glucose Level 154 mg/dL (74-106); Potassium 3.7 mmol/L (3.5-5.1); Sodium Level 138 mmol/L (136-145)
[2021-04-26] MEDS: INSULIN -REGULAR HUMAN 50 UNIT/0.5 ML ML SQ SCH ×4 (07:30→20:24)
[2021-04-26 08:11] LABS: C-Reactive Protein 29.1 mg/L (<3.00); Ferritin 1405.2 ng/mL (26-388)
--- NOTE | 2021-04-26 08:24 | P.PN ---
Subjective Date of Service: 04/26/21 Primary Care Provider: Kaden Chief Complaint: covid pneumonia Patient's condition deteriorated he was transferred to the ICU due to respiratory failure currently on BiPAP FiO2 100% oxygenation satisfactory Review of Systems is unable to be obtained Physical Examination - Vital Signs Temperature: 96.6 F Blood Pressure: 172/92 Pulse: 103 Respirations: 46 Pulse Ox (%): 95 - Physical Exam General: Unresponsive Assessment & Plan - Problems (Diagnosis) (1) Pneumonia due to COVID-19 virus Current Visit: Yes Status: Acute Plan: Respiratory failure from coronavirus condition deteriorated white count mildly elevated CO2 is satisfactory Lasix daily chest x-ray still shows diffuse bilateral changes blood pressure elevated
[2021-04-26] MEDS: atenoloL 25 MG TAB PO SCH (08:36)
[2021-04-26] MEDS ORDERED: dexAMETHasone 10 MG/ML VIAL IV SCH (09:00)
[2021-04-26] MEDS: ENSURE HIGH PROTEIN 237 ML CAN PO SCH ×2 (09:00→20:01)
[2021-04-26] MEDS: DOCUSATE NA 100 MG CAP PO SCH ×2 (11:05→20:01)
[2021-04-26] MEDS: FAMOTIDINE 20 MG TAB PO SCH ×2 (11:05→20:01)
[2021-04-26] MEDS: ASPIRIN EC 81 MG TAB PO SCH (11:05)
[2021-04-26] MEDS: THIAMINE HCL 100 MG TABLET PO SCH (11:05)
[2021-04-26] MEDS: SERTRALINE HCL 50 MG TAB PO SCH (11:05)
[2021-04-26] MEDS: VITAMIN D 1000 UNIT TAB PO SCH (11:06)
[2021-04-26] MEDS: FUROSEMIDE 20 MG/ 2ML VIAL IV SCH (11:14)
[2021-04-26] MEDS: dexAMETHasone 10 MG/ML VIAL IV SCH ×2 (11:14→20:00)
[2021-04-26 11:43] LABS: Arterial Blood Carboxyhemoglob 1.2 % (0-1.5); Blood Gas Oxyhemoglobin 88.5 % (94-97); Blood O2 Saturation 90.4 % (92-98.5)
[2021-04-26 14:07] LABS: Blood Morphology Comment NOT SEEN (NOT SEEN); Platelet Estimate ADEQ; White Blood Cell Scan OK (OK)
--- NOTE | 2021-04-26 14:12 | RAD REPORT ---
EXAM DESCRIPTION: XR Chest, 1 View CLINICAL HISTORY: The patient is 65 years old and is Male; Respiratory Distress TECHNIQUE: Single view of the chest. COMPARISON: April 22, 2021. FINDINGS: Lungs: Hazy bilateral pulmonary opacities again noted, decreased in conspicuity on the l eft compared with the prior exam. Expiratory film versus low lung volumes. Pleural space: No significant pleural fluid. No pneumothorax. Heart: Unremarkable. No cardiomegaly. Mediastinum: Unremarkable. Bones/joints: Multilevel vertebral osteophytes. No acute rib fracture visualized. Upper abdomen: No free air in the visualized upper abdomen. IMPRESSION: Hazy bilateral pulmonary opacities again noted, decreased in conspicuity on the left com pared with the prior exam. Electronically signed by: Milvia Barboza MD 04/26/2021 5:48 AM CDT Due to temporary technical issues with the PACS/Fluency reporting system, reports are being signed by the in house radiologists without review as a courtesy to insure prompt reporting. The interpreting radiologist is fully responsible for the content of the report.
[2021-04-26] MEDS: LORazepam 2 MG/ML VIAL IV PRN (17:40)
[2021-04-26] MEDS: INSULIN GLARGINE 100 UNITS/ML SQ SCH (17:53)
[2021-04-26] MEDS: RIVAROXABAN 10 MG TABLET PO SCH (17:53)
--- NOTE | 2021-04-27 03:00 | PN ---
Date of Progress Note: 04/26/2021 Chief Complaint: COVID pneumonia, hypoxemic respiratory failure. Subjective: The patient was transferred to ICU. Urine output primarily declined. Subsequently, urine output improved. The patient previously was found to have hyponatremia in setting of interstitial lung disease, COVID pneumonia, and respiratory failure. The patient was treated with potassium chloride to prevent hypokalemia. Potassium level has been controlled. His hyponatremia has resolved. Renal function at this point remains stable. Urine output is gradually improving. Electrolytes are stable. Review of Systems: Unobtainable. Physical Examination: Lungs: Few rhonchi. Heart: S1, S2. Abdomen: Soft. Extremities: No edema. Laboratory Data: Sodium 138, potassium 3.7, chloride 104, CO2 of 27, BUN 22, creatinine 0.64. Impression And Plan: 1. Hyponatremia. Sodium level was 127 and subsequently gradually improved. Monitor electrolytes. Adjust IV fluids. 2. Continue potassium replacement as needed. Potassium today is normal. 3. Respiratory failure, COVID pneumonia per Primary Team and Pulmonary Team. EB/MODL Voice ID: [id number] Report ID: [id number] MTDD
[2021-04-27 05:00] LABS: Basophils % 0.1 % (0-1.3); Hematocrit 39.3 % (39.6-49.0); Lymphocytes % 8.3 % (15.3-44.8); MPV 9.3 fL (7.6-11.3)
[2021-04-27 05:34] LABS: Albumin 2.5 g/dL (3.4-5.0); BUN Blood Urea Nitrogen 25 mg/dL (7-18); Bicarbonate 29 mmol/L (21-32); Ferritin 1485.1 ng/mL (26-388); Glucose Level 173 mg/dL (74-106); Magnesium 2.2 mg/dL (1.8-2.4); Phosphorus 3.5 mg/dL (2.5-4.9); Potassium 3.8 mmol/L (3.5-5.1); Sodium Level 139 mmol/L (136-145)
[2021-04-27] MEDS: INSULIN -REGULAR HUMAN 50 UNIT/0.5 ML ML SQ SCH ×4 (07:10→20:30)
--- NOTE | 2021-04-27 07:15 | P.PN ---
Subjective Date of Service: 04/27/21 Primary Care Provider: Kaden Chief Complaint: covid pneumonia Subjective: Other (complains of persistent shortness of breath and easy fatigability.) Physical Examination - Vital Signs Temperature: 97.7 F Blood Pressure: 127/78 Pulse: 76 Respirations: 28 Pulse Ox (%): 97 - Physical Exam General: Acute distress HEENT: Atraumatic, Normocephalic Neck: Supple, JVD not distended Respiratory: Other (symmetric chest expansion) Cardiovascular: No rubs, No murmurs Gastrointestinal: Soft and benign, No guarding Musculoskeletal: No clubbing Integumentary: No warmth Neurological: Normal tone Urinary: Other (no bladder distention) Assessment And Plan - Plan # Hyponatremia secondary to appropriate ADH release from acute respiratory issues, anxiety, & low solute intake Resolved Respiratory management per other services Avoid hypokalemia. Replete KCl prn to keep serum K 4.0 or higher for prompt hyponatremia correction. Encouraged to increase by mouth solid food intake # Acute respiratory failure from COVID pneumonia On O2 support leukocytosis improving Incentive spirometry every 2 hours when awake Mngt per other services # Hypertension Continue current antihypertensive medication regimen # Anxiety Xanax prn Sertraline # Hyperglycemia Insulin dosing per primary team # CODE STATUS Full code
[2021-04-27] MEDS: THIAMINE HCL 100 MG TABLET PO SCH (08:37)
[2021-04-27] MEDS: POLYETHYL GLY 3350 17 GM/DOSE PO PRN (08:37)
[2021-04-27] MEDS: VITAMIN D 1000 UNIT TAB PO SCH (08:37)
[2021-04-27] MEDS: FAMOTIDINE 20 MG TAB PO SCH ×2 (08:37→20:23)
[2021-04-27] MEDS: ASPIRIN EC 81 MG TAB PO SCH (08:37)
[2021-04-27] MEDS: SERTRALINE HCL 50 MG TAB PO SCH (08:37)
[2021-04-27] MEDS: DOCUSATE NA 100 MG CAP PO SCH ×2 (08:38→20:23)
[2021-04-27] MEDS: atenoloL 25 MG TAB PO SCH (08:38)
[2021-04-27] MEDS: FUROSEMIDE 20 MG/ 2ML VIAL IV SCH (08:38)
[2021-04-27] MEDS: dexAMETHasone 10 MG/ML VIAL IV SCH ×2 (08:38→20:23)
[2021-04-27] MEDS: LORazepam 2 MG/ML VIAL IV PRN ×3 (08:39→21:14)
[2021-04-27] MEDS: ENSURE HIGH PROTEIN 237 ML CAN PO SCH ×2 (08:39→20:24)
--- NOTE | 2021-04-27 14:10 | P.PN ---
Subjective Date of Service: 04/27/21 Primary Care Provider: Kaden Chief Complaint: covid pneumonia Patient transferred to the ICU yesterday due to persistent hypoxia. Initially placed on CPAP. Patient seen tolerating high-flow oxygen this morning. On 100% FiO2. Physical Examination - Vital Signs Temperature: 98.7 F Blood Pressure: 130/89 Pulse: 93 Respirations: 22 Pulse Ox (%): 93 - Physical Exam General: Alert, Mild distress Neck: JVD not distended Respiratory: Other (Mildly labored breathing) Cardiovascular: No edema, Regular rate/rhythm, Normal S1 S2 Gastrointestinal: Soft and benign, Non-distended Musculoskeletal: No swelling Integumentary: No rashes Neurological: Normal strength at 5/5 x4 extr Assessment And Plan - Current Problems (Diagnosis) (1) Acute respiratory failure with hypoxia Current Visit: Yes Status: Acute (2) Pneumonia due to COVID-19 virus Current Visit: Yes Status: Acute (3) Essential hypertension Current Visit: Yes Status: Acute Physician Review Additional Text: Physical Exam Gen: moderate distress, alert, nods head to answer, not talking due to SOB HEENT: normal conjunctiva, sclera anicteric Pulm: labored respirations on 100% BIPAP, improved after morphine/ativan CV: sinus tachycardia, no edema Abd: soft, nontender, nondistended MSK: no joint tenderness Neuro: moves all extremities, follows commands Problem list Acute hypoxemic respiratory failure secondary to COVID-19 pneumonia Steroid-induced hyperglycemia Hypertension Hyponatremia, mild; acute; resolved hypochloremic alkalosis Leukocytosis Depression/Anxiety Continue IV dexamethasone, vit D, Completed Baracitinib, completed Remdesivir. Wean FiO2 as tolerated. A1c: 6.0; monitor Glc / sliding scale Leukocytosis is steroid-induced, he did complete nearly 2 weeks of empiric cov erage with Levaquin from He is stable on high-flow oxygen but has required 100% FiO2 for weeks UA negative for UTI Continues oral morphine/ativan as needed Code: Full Dispo: prolonged hospitalization. guarded prognosis
--- NOTE | 2021-04-27 15:46 | P.PN ---
Subjective Date of Service: 04/27/21 Primary Care Provider: Kaden Chief Complaint: covid pneumonia Doign better alert and coperative on HF Review of Systems Respiratory: Shortness of Breath Physical Examination - Vital Signs Temperature: 98.7 F Blood Pressure: 130/89 Pulse: 93 Respirations: 22 Pulse Ox (%): 93 - Physical Exam General: Alert, Oriented x3, Cooperative Assessment & Plan - Problems (Diagnosis) (1) Pneumonia due to COVID-19 virus Current Visit: Yes Status: Acute Plan: Much better more alert on HF labs reviewed, ABC declining and decadron/ pt now has a Dobhoff
--- NOTE | 2021-04-27 16:18 | RAD REPORT ---
EXAM DESCRIPTION: RAD - Abdomen 1 View (KUB) - 04/27/2021 3:44 pm CLINICAL HISTORY: feeding tube placement COMPARISON: No comparisons FINDINGS: Feeding tube has been advanced into the stomach. The tubing is cul de within the stomach w ith the weighted tip near the GE junction. There is no abnormal bend or kink in the tubing.
[2021-04-27] MEDS: INSULIN GLARGINE 100 UNITS/ML SQ SCH (17:19)
[2021-04-27] MEDS: RIVAROXABAN 10 MG TABLET PO SCH (17:23)
[2021-04-27] MEDS ORDERED: GLUCERNA 1.5 CAL 1,000 ML BOT RTH SCH (20:00)
[2021-04-28 05:22] LABS: Absolute Lymphocytes (CBC) 1.4 K/uL (0.7-4.9); Basophils % 0.7 % (0-1.3); Lymphocytes % 11.2 % (15.3-44.8); MPV 9.5 fL (7.6-11.3); RBC Red Blood Cell Count 4.09 M/uL (4.33-5.43)
[2021-04-28 05:43] LABS: ALT/SGPT 42 U/L (12-78); AST/SGOT 26 U/L (15-37); Albumin 2.5 g/dL (3.4-5.0); Alkaline Phosphatase 72 U/L (45-117); BUN Blood Urea Nitrogen 26 mg/dL (7-18); Bicarbonate 31 mmol/L (21-32); Bilirubin Total 0.9 mg/dL (0.2-1.0); Glucose Level 133 mg/dL (74-106); Phosphorus 3.6 mg/dL (2.5-4.9); Potassium 3.8 mmol/L (3.5-5.1); Protein, Total 6.5 g/dL (6.4-8.2); Sodium Level 137 mmol/L (136-145)
[2021-04-28] MEDS: INSULIN -REGULAR HUMAN 50 UNIT/0.5 ML ML SQ SCH ×4 (07:30→20:19)
[2021-04-28 08:19] LABS: Blood Morphology Comment NOT SEEN (NOT SEEN); Platelet Estimate ADEQ
[2021-04-28] MEDS: INSULIN GLARGINE 100 UNITS/ML SQ SCH (08:52)
[2021-04-28] MEDS: atenoloL 25 MG TAB PO SCH (08:58)
[2021-04-28] MEDS: SERTRALINE HCL 50 MG TAB PO SCH (08:59)
[2021-04-28] MEDS: VITAMIN D 1000 UNIT TAB PO SCH (08:59)
[2021-04-28] MEDS: DOCUSATE NA 100 MG CAP PO SCH ×2 (08:59→20:02)
[2021-04-28] MEDS: THIAMINE HCL 100 MG TABLET PO SCH (08:59)
[2021-04-28] MEDS: ASPIRIN EC 81 MG TAB PO SCH (08:59)
[2021-04-28] MEDS: FAMOTIDINE 20 MG TAB PO SCH ×2 (08:59→20:02)
[2021-04-28] MEDS: ENSURE HIGH PROTEIN 237 ML CAN PO SCH ×2 (09:00→20:02)
[2021-04-28] MEDS: FUROSEMIDE 20 MG/ 2ML VIAL IV SCH (09:00)
[2021-04-28] MEDS: dexAMETHasone 10 MG/ML VIAL IV SCH ×2 (09:00→20:01)
[2021-04-28] MEDS ORDERED: FUROSEMIDE 40 MG/4 ML VIAL IV ONE (11:22)
--- NOTE | 2021-04-28 12:46 | P.PN ---
Subjective Date of Service: 04/28/21 Primary Care Provider: Kaden Chief Complaint: covid pneumonia Patient states he is feeling better today compared to yesterday. FiO2 weaned to 95%. He remain on high-flow oxygen. Physical Examination - Vital Signs Temperature: 97.3 F Blood Pressure: 125/83 Pulse: 65 Respirations: 27 Pulse Ox (%): 97 Assessment And Plan - Current Problems (Diagnosis) (1) Acute respiratory failure with hypoxia Current Visit: Yes Status: Acute (2) Pneumonia due to COVID-19 virus Current Visit: Yes Status: Acute (3) Essential hypertension Current Visit: Yes Status: Acute Physician Review Additional Text: Physical Exam Gen: mild distress, alert. HEENT: normal conjunctiva, sclera anicteric Pulm: Mildly labored breathing on high-flow oxygen. CV: sinus rhythm, no edema Abd: soft, nontender, nondistended MSK: no joint tenderness Neuro: moves all extremities, follows commands Problem list Acute hypoxemic respiratory failure secondary to COVID-19 pneumonia Steroid-induced hyperglycemia Hypertension Hyponatremia, mild; acute; resolved hypochloremic alkalosis Leukocytosis Depression/Anxiety Continue IV dexamethasone, vit D, Completed Baracitinib, completed Remdesivir. Continue to wWean FiO2 as tolerated. A1c: 6.0; monitor Glc / sliding scale Leukocytosis is steroid-induced, he did complete nearly 2 weeks of empiric coverage with Levaquin from . Leukocytosis improved He is stable on high-flow oxygen. Patient started on IV Lasix morphine/ativan as needed. Code: Full Dispo: prolonged hospitalization. guarded prognosis
[2021-04-28] MEDS: VITAL HP 1,000 ML BOT RTH SCH (12:47)
--- NOTE | 2021-04-28 13:58 | PN ---
Date of Progress Note: 04/28/2021 Subjective: The patient was admitted with COVID pneumonia. The patient developed hyponatremia, acut e kidney injury. His respiratory failure did not improve. The patient was transferred to the unit. The patient was started on NG tube feeding yesterday. Physical Examination: Vital Signs: Blood pressure 129/87, pulse of 82, afebrile. The patient had good urine output of 120 0. Chest: Crackles on the left more. Heart: S1, S2. Regular. Abdomen: Soft, nontender. Extremities: No edema. Laboratory Data: WBC 12.4, H and H 13/38. Sodium 137, potassium 3.8, bicarb 31, BUN 26, creatinine 0.4, calcium 8.8, phosphorus 3.6, magnesium of 2, albumin 2.5. Corrected calcium is 10. Current Medications: The patient on include; 1.Aspirin. 2.Xarelto. 3.Atenolol. 4.Hydralazine p.r.n. 5.Xanax. 6.Zoloft. 7.Lasix 20 daily. 8.Dexamethasone 6 mg b.i.d. 9.Pepcid. 10.Melatonin. 11.Cholecalciferol. 12.Thiamin. Assessment And Plan: 1.Acute kidney injury secondary to prerenal, recovered, resolved. 2.Hyponatremia secondary to depletional, recovered, resolved. I agree with current tube feed. We w ill decrease the free water to every 8 hour 75 mL. We will give extra dose of Lasix. 3.Respiratory failure secondary to COVID pneumonia/mild over volume. We will give Lasix. We will monitor. We will follow up with Primary and Pulmonary. JACE/MODL Voice ID: [id number] Report ID: [id number]
--- NOTE | 2021-04-28 14:19 | RAD REPORT ---
EXAM DESCRIPTION: RAD - Abdomen 1 View (KUB) - 04/28/2021 2:05 pm CLINICAL HISTORY: dobhoff placement repositioning COMPARISON: Abdomen 1 View (KUB) dated 04/27/2021 FINDINGS: The weighted feeding tube tip overlies the stomach. Bilateral airspace disease is similar to prior. Limited visualization of the abdomen but no bowel obstruction identified IMPRESSION: Weighted feeding tube tip continues to overlie the stomach.
[2021-04-28] MEDS: RIVAROXABAN 10 MG TABLET PO SCH (18:51)
[2021-04-28] MEDS: MELATONIN 5 MG TABLET PO PRN (22:14)
[2021-04-28] MEDS: LORazepam 2 MG/ML VIAL IV PRN (23:00)
[2021-04-29 05:26] LABS: Absolute Lymphocytes (CBC) 1.8 K/uL (0.7-4.9); Basophils % 0.5 % (0-1.3); Lymphocytes % 14.7 % (15.3-44.8); MPV 9.3 fL (7.6-11.3)
[2021-04-29 05:42] LABS: BUN Blood Urea Nitrogen 31 mg/dL (7-18); Bicarbonate 33 mmol/L (21-32); Glucose Level 165 mg/dL (74-106); Phosphorus 3.3 mg/dL (2.5-4.9); Potassium 3.2 mmol/L (3.5-5.1); Sodium Level 134 mmol/L (136-145)
[2021-04-29] MEDS: INSULIN -REGULAR HUMAN 50 UNIT/0.5 ML ML SQ SCH ×4 (07:30→21:00)
[2021-04-29] MEDS: ASPIRIN EC 81 MG TAB PO SCH (08:24)
[2021-04-29] MEDS: FAMOTIDINE 20 MG TAB PO SCH ×2 (08:25→21:16)
[2021-04-29] MEDS: POLYETHYL GLY 3350 17 GM/DOSE PO PRN (08:25)
[2021-04-29] MEDS: THIAMINE HCL 100 MG TABLET PO SCH (08:25)
[2021-04-29] MEDS: VITAMIN D 1000 UNIT TAB PO SCH (08:25)
[2021-04-29] MEDS: SERTRALINE HCL 50 MG TAB PO SCH (08:25)
[2021-04-29] MEDS: DOCUSATE NA 100 MG CAP PO SCH ×2 (08:25→21:16)
[2021-04-29] MEDS: dexAMETHasone 10 MG/ML VIAL IV SCH ×2 (08:26→21:16)
[2021-04-29] MEDS: FUROSEMIDE 20 MG/ 2ML VIAL IV SCH (08:26)
[2021-04-29] MEDS: atenoloL 25 MG TAB PO SCH (08:32)
[2021-04-29] MEDS ORDERED: POTASSIUM 25 MEQ EFFERV TAB PO ONE (09:00)
[2021-04-29] MEDS: ENSURE HIGH PROTEIN 237 ML CAN PO SCH ×2 (09:00→21:00)
[2021-04-29 10:34] LABS: Urine Appearance CLEAR (Clear); Urine Bilirubin NEGATIVE (Negative); Urine Blood NEGATIVE (Negative); Urine Color YELLOW (Yellow); Urine Glucose NEGATIVE (Negative); Urine Microscopic Reflex NO UMIC; Urine Protein NEGATIVE (Negative); Urine Specific Gravity 1.015 (1.005-1.030); Urine pH 6.5 (5.0-7.0)
--- NOTE | 2021-04-29 11:02 | P.PN ---
Subjective Date of Service: 04/29/21 Primary Care Provider: Kaden Chief Complaint: covid pneumonia No issues overnight. FiO2 weaned to 80%. He remain on high-flow oxygen. Physical Examination - Vital Signs Temperature: 97.4 F Blood Pressure: 136/95 Pulse: 88 Respirations: 21 Pulse Ox (%): 91 Assessment And Plan - Current Problems (Diagnosis) (1) Acute respiratory failure with hypoxia Current Visit: Yes Status: Acute (2) Pneumonia due to COVID-19 virus Current Visit: Yes Status: Acute (3) Essential hypertension Current Visit: Yes Status: Acute Physician Review Additional Text: Physical Exam Gen: mild distress, alert. HEENT: normal conjunctiva, sclera anicteric Pulm: Non labored breathing on high-flow oxygen. CV: sinus rhythm, no edema Abd: soft, nontender, nondistended MSK: no joint tenderness Neuro: moves all extremities, follows commands Problem list Acute hypoxemic respiratory failure secondary to COVID-19 pneumonia Steroid-induced hyperglycemia Hypertension Hyponatremia, mild; acute; resolved hypochloremic alkalosis Leukocytosis Depression/Anxiety Continue IV dexamethasone, vit D, Completed Baracitinib, completed Remdesivir. Continue to wean FiO2 as tolerated. A1c: 6.0; monitor Glc / sliding scale Leukocytosis is steroid-induced, off antibiotics. Leukocytosis improved He is stable on high-flow oxygen. Patient started on IV Lasix morphine/ativan as needed. Pulmonary input appreciated. Code: Full Dispo: prolonged hospitalization. guarded prognosis
--- NOTE | 2021-04-29 11:03 | RAD REPORT ---
EXAM DESCRIPTION: RAD - Abdomen 1 View (KUB) - 04/29/2021 10:51 am CLINICAL HISTORY: Device placement Dobhoff tube placement FINDINGS: A Dobhoff tube lies is coiled within the stomach. The tip lies within the gastric fundus.
--- NOTE | 2021-04-29 11:36 | P.PN ---
Subjective Date of Service: 04/29/21 Primary Care Provider: Kaden Chief Complaint: covid pneumonia stable NC Review of Systems Respiratory: Shortness of Breath Physical Examination - Vital Signs Temperature: 97.4 F Blood Pressure: 136/95 Pulse: 88 Respirations: 21 Pulse Ox (%): 91 - Physical Exam General: Alert, Cooperative Assessment & Plan - Problems (Diagnosis) (1) Pneumonia due to COVID-19 virus Current Visit: Yes Status: Acute Plan: Stabel 80% Fio2 / mild hypokalemia
[2021-04-29] MEDS ORDERED: FUROSEMIDE 20 MG/ 2ML VIAL IV ONE (12:08)
--- NOTE | 2021-04-29 13:05 | PN ---
Date of Progress Note: 04/29/2021 Subjective: The patient was admitted with COVID pneumonia. The patient had respiratory failure. The patient had acute kidney injury and hyponatremia secondary to depletional, prerenal with alkalosis. The patient was started on tube feed through NG tube. The patient is better today, still down of FiO2 down to 80%, but the patient desaturates fast with any movement. Physical Examination: Vital Signs: Blood pressure 136/95, pulse of 88, afebrile. The patient had urine output of 2800. The patient was negative of 1900. Chest: Crackles bilateral. Heart: S1, S2. Systolic murmur. Abdomen: Soft, nontender. Extremity: No edema. Neurologic: Alert. No focal. Laboratory Data: WBC 12.3, H and H 13.6/39. Sodium 134, potassium 3.2, bicarb 33, BUN 31, creatinine 0.4, calcium 9, phosphorus 3.3. Current Medications: The patient on is include; 1. Aspirin. 2. Xarelto. 3. Atenolol. 4. Hydralazine p.r.n. 5. Zoloft. 6. Lasix 20 mg daily. 7. Pepcid. 8. Insulin. Assessment And Plan: 1. Acute kidney injury secondary to prerenal, recovered, resolved. 2. Hyponatremia secondary to depletional. I am going to go ahead and continue to decrease the free water. We will give extra dose of Lasix today. I am going to increase Lasix to 40 mg daily. 3. Alkalosis, recovering and stable. We will monitor. 4. Hypokalemia. We will supplement. 5. Respiratory failure secondary to COVID pneumonia. Follow up with Pulmonary Critical Care. 6. Malnourished. Continue tube feed. JACE/LEANDRA Voice ID: [id number] Report ID: [id number] SHYLA
[2021-04-29] MEDS: INSULIN GLARGINE 100 UNITS/ML SQ SCH (17:00)
[2021-04-29] MEDS: RIVAROXABAN 10 MG TABLET PO SCH (17:15)
[2021-04-29] MEDS: LORazepam 2 MG/ML VIAL IV PRN (21:16)
[2021-04-30] MEDS: LORazepam 2 MG/ML VIAL IV PRN ×2 (05:16→22:11)
--- NOTE | 2021-04-30 05:29 | P.PN ---
Subjective Date of Service: 04/30/21 Primary Care Provider: Kaden Chief Complaint: covid pneumonia Subjective: Other (he reports feeling too weak and feeling anxious to get out of bed.) Physical Examination - Vital Signs Temperature: 97.0 F Blood Pressure: 140/82 Pulse: 95 Respirations: 18 Pulse Ox (%): 97 - Physical Exam General: Mild distress HEENT: Atraumatic, Normocephalic Neck: Supple Respiratory: Other (symmetric chest expansion) Cardiovascular: No rubs, No murmurs Gastrointestinal: Soft and benign, No guarding Musculoskeletal: No clubbing Integumentary: No warmth Neurological: Normal speech, Normal tone Urinary: Other (no bladder distention) External genitalia: Deferred Rectal: Deferred Assessment And Plan - Plan # Hyponatremia secondary to appropriate ADH release from acute respiratory issues, anxiety, & low solute intake Serum Na improved to 134-135 Respiratory management per other services Avoid hypokalemia. Replete KCl prn to keep serum K 4.0 or higher for prompt hyponatremia correction. Encouraged to increase by mouth solid food intake # Acute respiratory failure from COVID pneumonia On O2 support Incentive spirometry every 2 hours when awake Mngt per other services # Hypertension Continue current antihypertensive medication regimen # Anxiety Xanax prn Sertraline # Hyperglycemia Insulin dosing per primary team # Debility He agreed to start getting OOB today # CODE STATUS Full code
[2021-04-30] MEDS: INSULIN -REGULAR HUMAN 50 UNIT/0.5 ML ML SQ SCH ×3 (07:30→18:00)
[2021-04-30] MEDS: ENSURE HIGH PROTEIN 237 ML CAN PO SCH ×2 (09:00→20:38)
[2021-04-30] MEDS: dexAMETHasone 10 MG/ML VIAL IV SCH ×2 (09:00→20:38)
[2021-04-30] MEDS: KCL 20 MEQ/100 mL IVPB 20 MEQ/100 ML BAG IV SCH ×2 (09:00→11:00)
[2021-04-30] MEDS: VITAMIN D 1000 UNIT TAB PO SCH (09:34)
[2021-04-30] MEDS: FAMOTIDINE 20 MG TAB PO SCH ×2 (09:34→20:37)
[2021-04-30] MEDS: DOCUSATE NA 100 MG CAP PO SCH ×2 (09:34→20:37)
[2021-04-30] MEDS: ASPIRIN EC 81 MG TAB PO SCH (09:34)
[2021-04-30] MEDS: THIAMINE HCL 100 MG TABLET PO SCH (09:34)
[2021-04-30] MEDS: atenoloL 25 MG TAB PO SCH (09:44)
[2021-04-30] MEDS: SERTRALINE HCL 50 MG TAB PO SCH (09:44)
[2021-04-30] MEDS: FUROSEMIDE 40 MG/4 ML VIAL IV SCH (09:44)
[2021-04-30] MEDS ORDERED: POTASSIUM 25 MEQ EFFERV TAB PO ONE (12:35)
--- NOTE | 2021-04-30 16:33 | P.PN ---
Subjective Date of Service: 04/30/21 Primary Care Provider: Kaden Chief Complaint: covid pneumonia No issues overnight. No changes from yesterday. He remain on high-flow oxygen. Physical Examination - Vital Signs Temperature: 98.3 F Blood Pressure: 134/76 Pulse: 74 Respirations: 30 Pulse Ox (%): 96 - Physical Exam General: Alert, Mild distress Neck: JVD not distended Respiratory: Other (Mildly labored breathing) Cardiovascular: No edema, Regular rate/rhythm Gastrointestinal: Soft and benign, Non-distended Musculoskeletal: No swelling Integumentary: No rashes Neurological: Normal strength at 5/5 x4 extr Assessment And Plan - Current Problems (Diagnosis) (1) Acute respiratory failure with hypoxia Current Visit: Yes Status: Acute (2) Pneumonia due to COVID-19 virus Current Visit: Yes Status: Acute (3) Essential hypertension Current Visit: Yes Status: Acute Physician Review Additional Text: Physical Exam Gen: mild distress, alert. HEENT: normal conjunctiva, sclera anicteric Pulm: Non labored breathing on high-flow oxygen. CV: sinus rhythm, no edema Abd: soft, nontender, nondistended MSK: no joint tenderness Neuro: moves all extremities, follows commands Problem list Acute hypoxemic respiratory failure secondary to COVID-19 pneumonia Steroid-induced hyperglycemia Hypertension Hyponatremia, mild; acute; resolved hypochloremic alkalosis Leukocytosis Depression/Anxiety Continue IV dexamethasone, vit D, Completed Baracitinib, completed Remdesivir. Continue to wean FiO2 as tolerated. A1c: 6.0; monitor Glc / sliding scale Leukocytosis is steroid-induced, off antibiotics. Leukocytosis improved He is stable on high-flow oxygen. On IV Lasix morphine/ativan as needed. Pulmonary is following. Code: Full Dispo: prolonged hospitalization. guarded prognosis
[2021-04-30] MEDS: RIVAROXABAN 10 MG TABLET PO SCH (18:00)
[2021-04-30] MEDS: INSULIN GLARGINE 100 UNITS/ML SQ SCH (18:00)
[2021-05-01 06:00] LABS: Absolute Lymphocytes (CBC) 1.8 K/uL (0.7-4.9); Basophils % 0.5 % (0-1.3); Hematocrit 34.5 % (39.6-49.0); Lymphocytes % 17.2 % (15.3-44.8); MPV 9.1 fL (7.6-11.3); RBC Red Blood Cell Count 3.71 M/uL (4.33-5.43)
[2021-05-01] MEDS: INSULIN -REGULAR HUMAN 50 UNIT/0.5 ML ML SQ SCH ×4 (06:00→18:00)
[2021-05-01 06:15] LABS: BUN Blood Urea Nitrogen 25 mg/dL (7-18); Bicarbonate 39 mmol/L (21-32); Glucose Level 194 mg/dL (74-106); Potassium 3.8 mmol/L (3.5-5.1); Sodium Level 133 mmol/L (136-145)
[2021-05-01 06:19] LABS: Albumin 2.6 g/dL (3.4-5.0); Magnesium 1.9 mg/dL (1.8-2.4); Phosphorus 3.3 mg/dL (2.5-4.9)
[2021-05-01] MEDS: VITAMIN D 1000 UNIT TAB PO SCH (08:08)
[2021-05-01] MEDS: DOCUSATE NA 100 MG CAP PO SCH ×2 (08:08→20:15)
[2021-05-01] MEDS: SERTRALINE HCL 50 MG TAB PO SCH (08:08)
[2021-05-01] MEDS: THIAMINE HCL 100 MG TABLET PO SCH (08:08)
[2021-05-01] MEDS: ASPIRIN EC 81 MG TAB PO SCH (08:09)
[2021-05-01] MEDS: atenoloL 25 MG TAB PO SCH (08:09)
[2021-05-01] MEDS: FAMOTIDINE 20 MG TAB PO SCH ×2 (08:09→20:15)
[2021-05-01] MEDS: dexAMETHasone 10 MG/ML VIAL IV SCH ×2 (08:43→20:15)
[2021-05-01] MEDS: ENSURE HIGH PROTEIN 237 ML CAN PO SCH ×2 (08:43→20:17)
[2021-05-01] MEDS: FUROSEMIDE 40 MG/4 ML VIAL IV SCH (08:44)
[2021-05-01] MEDS ORDERED: POTASSIUM CL SA 10 MEQ TAB PO ONE (09:00)
--- NOTE | 2021-05-01 11:25 | P.PN ---
Subjective Date of Service: 05/01/21 Primary Care Provider: Kaden Chief Complaint: covid pneumonia Patient's condition is stable is patient's condition is stable he still on high concentration of oxygen around 90% alert responsive tachypneic Review of Systems General: Weakness Respiratory: Shortness of Breath Physical Examination - Vital Signs Temperature: 96.9 F Blood Pressure: 125/80 Pulse: 89 Respirations: 28 Pulse Ox (%): 90 - Physical Exam General: Alert, Oriented x3 Assessment & Plan - Problems (Diagnosis) (1) Pneumonia due to COVID-19 virus Current Visit: Yes Status: Acute Plan: No change in patient's condition he has severe coronavirus pneumonia on 90% FiO2 white count is now normal I have ordered another ABG and a chest x-ray continue with present dose of Decadron patient is on IV Lasix
--- NOTE | 2021-05-01 12:28 | PN ---
Date of Progress Note: 05/01/2021 Subjective: The patient was admitted with COVID pneumonia. The patient had respiratory failure. Th e patient is still on high FiO2. The patient had hyponatremia secondary to depletional. Physical Examination: Vital Signs: Blood pressure 125/80, pulse of 89, afebrile. The patient had urine output of 1600, po sitive of 250. Chest: Crackles bilateral. Heart: S1, S2. Regular. Abdomen: Soft, nontender. Extremities: No edema. Neuro: Alert. No focality. Laboratory Data: H and H 12.1/34.5. Sodium 133, potassium 3.8, bicarb 39, BUN 25, creatinine 0.4, c alcium 9.1, albumin 2.6. Corrected calcium is 10.3. Current Medications: The patient on include; 1.Aspirin. 2.Xarelto. 3.Atenolol. 4.Zoloft. 5.Lasix. 6.Dexamethasone 6 mg b.i.d. 7.Pepcid. 8.Insulin. Assessment And Plan: 1.Acute kidney injury secondary to prerenal, recovered, resolved. 2.Hyponatremia secondary to depletional, resolved. 3.Hypertension, controlled, optimal. 4.COVID pneumonia with respiratory failure. We will follow up with Pulmonary. 5.Hyponatremia secondary to depletion. We will continue to monitor the patient. I am going to go ahead and decrease free water to every 8 hours and we will follow up. PABLITO Voice ID: [id number] Report ID: [id number]
--- NOTE | 2021-05-01 13:34 | RAD REPORT ---
EXAM DESCRIPTION: RAD - Chest Single View - 05/01/2021 1:12 pm CLINICAL HISTORY: Coronavirus pneumonia Chest pain. COMPARISON: Abdomen 1 View (KUB) dated 04/29/2021; Abdomen 1 View (KUB) dated 04/28/2021; Abdomen 1 Vi ew ([facility]) dated 04/27/2021; Chest Single View dated 04/26/2021 FINDINGS: Portable technique limits examination quality. Moderate bilateral pulmonary opacities are present suspicious for COVID infection. They appear essent ially stable since comparative study. Enteric coils in the stomach. The heart is normal in size.
[2021-05-01 14:52] LABS: Blood Gas Oxyhemoglobin 93.5 % (94-97); Blood O2 Saturation 96.2 % (92-98.5)
--- NOTE | 2021-05-01 16:07 | P.PN ---
Subjective Date of Service: 05/01/21 Primary Care Provider: Kaden Chief Complaint: covid pneumonia No issues overnight. No major changes. He remain on high-flow oxygen with 90% FiO2. Physical Examination - Vital Signs Temperature: 98.2 F Blood Pressure: 108/80 Pulse: 72 Respirations: 32 Pulse Ox (%): 94 Assessment And Plan - Current Problems (Diagnosis) (1) Acute respiratory failure with hypoxia Current Visit: Yes Status: Acute (2) Pneumonia due to COVID-19 virus Current Visit: Yes Status: Acute (3) Essential hypertension Current Visit: Yes Status: Acute Physician Review Additional Text: Physical Exam Gen: mild distress, alert. HEENT: normal conjunctiva, sclera anicteric Pulm: Non labored breathing on high-flow oxygen. CV: sinus rhythm, no edema Abd: soft, nontender, nondistended MSK: no joint tenderness Neuro: moves all extremities, follows commands. Problem list Acute hypoxemic respiratory failure secondary to COVID-19 pneumonia Steroid-induced hyperglycemia Hypertension Hyponatremia, mild; acute; resolved hypochloremic alkalosis Leukocytosis Depression/Anxiety Continue IV dexamethasone, vit D, Completed Baracitinib, completed Remdesivir. Continue to wean FiO2 as tolerated. A1c: 6.0; monitor Glc / sliding scale Leukocytosis is steroid-induced, off antibiotics. Leukocytosis resolved. He is stable on high-flow oxygen. I suspect significant residual pulmonary injury from COVID Diuretics per nephrology. Nephrology recommend NS. NS to be given briefly. morphine/ativan as needed. Continue Zoloft for anxiety and depression. NG tube feeding. Pulmonary is following. Code: Full Dispo: prolonged hospitalization. guarded prognosis
[2021-05-01] MEDS: INSULIN GLARGINE 100 UNITS/ML SQ SCH (17:00)
[2021-05-01] MEDS ORDERED: NA CHLORIDE 0.9% 1,000 ML IV SCH (17:00)
[2021-05-01] MEDS: RIVAROXABAN 10 MG TABLET PO SCH (17:50)
[2021-05-01] MEDS: LORazepam 2 MG/ML VIAL IV PRN (20:15)
[2021-05-02] MEDS: MELATONIN 5 MG TABLET PO PRN ×2 (00:30→19:46)
[2021-05-02] MEDS: INSULIN -REGULAR HUMAN 50 UNIT/0.5 ML ML SQ SCH ×4 (00:32→17:14)
--- NOTE | 2021-05-02 07:51 | RAD REPORT ---
EXAM DESCRIPTION: RAD - Chest Single View - 05/02/2021 6:17 am CLINICAL HISTORY: Coronavirus pneumonia COMPARISON: May 01 TECHNIQUE: AP portable chest image was obtained 05/02/2021 6:17 am . FINDINGS: Lung volumes are low. Bilateral lung parenchymal opacification present. Lung parenchymal p attern is stable. Feeding tube is coiled in the stomach with the weighted tip in the fundus. Heart an d vasculature are normal. No measurable pleural effusion and no pneumothorax. No acute bony abnormali ty seen. No acute aortic findings suspected. IMPRESSION: Stable portable chest as detailed.
[2021-05-02] MEDS: DOCUSATE NA 100 MG CAP PO SCH ×2 (08:44→19:46)
[2021-05-02] MEDS: ASPIRIN EC 81 MG TAB PO SCH (08:44)
[2021-05-02] MEDS: atenoloL 25 MG TAB PO SCH (08:44)
[2021-05-02] MEDS: FAMOTIDINE 20 MG TAB PO SCH ×2 (08:45→19:46)
[2021-05-02] MEDS: SERTRALINE HCL 50 MG TAB PO SCH (08:45)
[2021-05-02] MEDS: ENSURE HIGH PROTEIN 237 ML CAN PO SCH ×2 (08:46→19:47)
[2021-05-02] MEDS: dexAMETHasone 10 MG/ML VIAL IV SCH ×2 (08:47→19:51)
--- NOTE | 2021-05-02 11:49 | PN ---
Date of Progress Note: 05/02/2021 Subjective: The patient was admitted with COVID pneumonia, had alkalosis, has depletional hyponatrem ia. The patient still has shortness of breath. Physical Examination: Vital Signs: When I saw the patient; blood pressure 123/81, pulse of 79, afebrile. Chest: Faint rales on the right side. Heart: S1, S2. Regular. Abdomen: Soft, nontender. Extremity: No edema. Neurologic: Alert. No focality. Laboratory Data: WBC 10.6, H and H 12.1/34.5. Sodium 133, potassium 3.8, bicarb 39, BUN 25, creatin ine 0.4, calcium 9.1. Chest x-ray; interstitial infiltrations bilateral, does not look any fluid ove r volume. The patient received IV fluid yesterday. Lasix has been held. Current Medications: Aspirin, Xarelto, atenolol, tube feed, dexamethasone 6 b.i.d., Pepcid, insulin, melatonin. Assessment And Plan: 1.Acute kidney injury secondary to prerenal, resolved. 2.Hyponatremia secondary to SIADH secondary to atypical pneumonia, recovered. 3.Contraction alkalosis, status post IV fluid yesterday. I am going to continue tube feeding with f ree water. We will repeat lab and we will follow up. 4.Respiratory failure secondary to COVID pneumonia as by primary and Pulmonary. JACE/LEANDRA Voice ID: [id number] Report ID: [id number]
--- NOTE | 2021-05-02 15:01 | P.PN ---
Subjective Date of Service: 05/02/21 Primary Care Provider: Kaden Chief Complaint: covid pneumonia No new changes. Patient remain on high-flow oxygen with 90% FiO2. Physical Examination - Vital Signs Temperature: 97.1 F Blood Pressure: 115/68 Pulse: 60 Respirations: 20 Pulse Ox (%): 90 Assessment And Plan - Current Problems (Diagnosis) (1) Acute respiratory failure with hypoxia Current Visit: Yes Status: Acute (2) Pneumonia due to COVID-19 virus Current Visit: Yes Status: Acute (3) Essential hypertension Current Visit: Yes Status: Acute Physician Review Additional Text: Physical Exam Gen: mild distress, alert. HEENT: normal conjunctiva, sclera anicteric Pulm: Non labored breathing on high-flow oxygen. CV: sinus rhythm, no edema Abd: soft, nontender, nondistended MSK: no joint tenderness Neuro: moves all extremities, follows commands. Problem list Acute hypoxemic respiratory failure secondary to COVID-19 pneumonia Steroid-induced hyperglycemia Hypertension Hyponatremia, mild; acute; resolved hypochloremic alkalosis Leukocytosis Depression/Anxiety Continue IV dexamethasone, vit D, Completed Baracitinib, completed Remdesivir. Continue to wean FiO2 as tolerated. Insulin sliding scale and Lantus insulin for glucose management. Leukocytosis is steroid-induced, off antibiotics. Leukocytosis resolved. He is stable on high-flow oxygen. I suspect significant residual pulmonary i njury from COVID Diuretics per nephrology. morphine/ativan as needed. Continue Zoloft for anxiety and depression. NG tube feeding. Pulmonary is following. Code: Full Dispo: prolonged hospitalization. guarded prognosis
[2021-05-02] MEDS: RIVAROXABAN 10 MG TABLET PO SCH (16:59)
[2021-05-02] MEDS: INSULIN GLARGINE 100 UNITS/ML SQ SCH (17:00)
[2021-05-02] MEDS: VITAL HP 1,000 ML BOT RTH SCH (17:15)
[2021-05-02] MEDS: ASCORBIC ACID 500 MG TABLET PO SCH (19:46)
[2021-05-03 04:23] LABS: Absolute Lymphocytes (CBC) 1.5 K/uL (0.7-4.9); Basophils % 0.7 % (0-1.3); Hematocrit 32.9 % (39.6-49.0); Lymphocytes % 14.2 % (15.3-44.8); MPV 8.7 fL (7.6-11.3); RBC Red Blood Cell Count 3.51 M/uL (4.33-5.43)
[2021-05-03 04:34] LABS: Albumin 2.5 g/dL (3.4-5.0); BUN Blood Urea Nitrogen 21 mg/dL (7-18); Bicarbonate 35 mmol/L (21-32); Glucose Level 217 mg/dL (74-106); Magnesium 1.9 mg/dL (1.8-2.4); Phosphorus 3.6 mg/dL (2.5-4.9); Potassium 3.9 mmol/L (3.5-5.1); Sodium Level 132 mmol/L (136-145)
[2021-05-03 05:29] LABS: Blood Morphology Comment NOT SEEN (NOT SEEN); Platelet Estimate ADEQ
[2021-05-03] MEDS: INSULIN -REGULAR HUMAN 50 UNIT/0.5 ML ML SQ SCH ×5 (06:00→23:40)
[2021-05-03] MEDS: ASPIRIN EC 81 MG TAB PO SCH (08:35)
[2021-05-03] MEDS: SERTRALINE HCL 50 MG TAB PO SCH (08:35)
[2021-05-03] MEDS: FAMOTIDINE 20 MG TAB PO SCH ×2 (08:35→20:16)
[2021-05-03] MEDS: ASCORBIC ACID 500 MG TABLET PO SCH ×3 (08:35→20:18)
[2021-05-03] MEDS: ZINC SULFATE 220 MG CAP PO SCH (08:35)
[2021-05-03] MEDS: atenoloL 25 MG TAB PO SCH (08:35)
[2021-05-03] MEDS: DOCUSATE NA 100 MG CAP PO SCH ×2 (08:35→20:18)
[2021-05-03] MEDS: ENSURE HIGH PROTEIN 237 ML CAN PO SCH ×2 (08:36→20:18)
[2021-05-03] MEDS: dexAMETHasone 10 MG/ML VIAL IV SCH ×2 (08:39→20:16)
--- NOTE | 2021-05-03 15:51 | P.PN ---
Subjective Date of Service: 05/03/21 Primary Care Provider: Kaden Chief Complaint: covid pneumonia No new changes. Patient remain on high-flow oxygen. FiO2 weaned down to 85%. Physical Examination - Vital Signs Temperature: 97.4 F Blood Pressure: 117/62 Pulse: 64 Respirations: 31 Pulse Ox (%): 97 - Physical Exam General: Alert, Mild distress Neck: JVD not distended Respiratory: Other (Mildly labored breathing.) Assessment And Plan - Current Problems (Diagnosis) (1) Acute respiratory failure with hypoxia Current Visit: Yes Status: Acute (2) Pneumonia due to COVID-19 virus Current Visit: Yes Status: Acute (3) Essential hypertension Current Visit: Yes Status: Acute Physician Review Additional Text: Physical Exam Gen: mild distress, alert. HEENT: normal conjunctiva, sclera anicteric Pulm: Mildly labored breathing on high-flow oxygen. CV: sinus rhythm, no edema Abd: soft, nontender, nondistended MSK: no joint tenderness Neuro: moves all extremities, follows commands. Problem list Acute hypoxemic respiratory failure secondary to COVID-19 pneumonia Steroid-induced hyperglycemia Hypertension Hyponatremia, mild; acute; resolved hypochloremic alkalosis Leukocytosis Depression/Anxiety Continue IV dexamethasone, vit D, Completed Baracitinib, completed Remdesivir. Continue to wean FiO2 as tolerated. Insulin sliding scale and Lantus insulin for glucose management. Leukocytosis is steroid-induced, off antibiotics. Leukocytosis resolved. He is stable on high-flow oxygen. I suspect significant residual pulmonary injury from COVID morphine/ativan as needed. Continue Zoloft for anxiety and depression. Titrate to Zoloft as needed. Patient is not eating much by mouth. Continue NG tube feeding. Pulmonary is following. Code: Full Dispo: prolonged hospitalization. guarded prognosis
[2021-05-03] MEDS: RIVAROXABAN 10 MG TABLET PO SCH (17:09)
[2021-05-03] MEDS: INSULIN GLARGINE 100 UNITS/ML SQ SCH (17:09)
[2021-05-03] MEDS: VITAL HP 1,000 ML BOT RTH SCH (17:17)
[2021-05-03] MEDS: MELATONIN 5 MG TABLET PO PRN (20:16)
[2021-05-03] MEDS ORDERED: NA CHLORIDE 0.9% 1,000 ML IV SCH (22:00)
[2021-05-03] MEDS ORDERED: TRAZODONE 50 MG TABLET PO ONE (23:51)
--- NOTE | 2021-05-04 00:57 | PN ---
Date of Progress Note: 05/03/2021 Chief Complaint: Acute kidney injury. History Of Present Illness: The patient has COVID pneumonia. He is on tube feeding. The patient was found to have hyponatremia. Overall, sodium level improved from 127 to 132 over the last several days. The patient has prerenal azotemia. Blood glucose is well controlled. Patient was found to have elevated bicarbonate and metabolic alkalosis. total CO2 improved from 39-35. ABG test was done on May 01, and showed pH of 7.5, pCO2 of 51. Patient is on IV fluids for volume depletion. He has nonoliguric urine output and renal function overall has improved. Review of Systems: Unobtainable. Physical Examination: Lungs: Few rhonchi. Heart: S1, S2. Abdomen: Soft, benign. Extremities: No edema. Laboratory Data: Sodium 132, potassium 3.9, glucose 217, calcium 8.7, phosphorus 3.6, magnesium 1.9, total CO2 35, BUN 21, creatinine 0.36. Impression And Plan: 1. Acute kidney injury in recovery phase, nonoliguric. Creatinine level has improved. There is high BUN and creatinine ratio secondary to hypercatabolic state in setting of COVID pneumonia. 2. The patient responded to IV fluids, contraction alkalosis is gradually resolving. Continue IV fluids for hydration. 3. Hyponatremia. Plan is use normal saline for IV fluid hydration. EB/MODL Voice ID: [id number] Report ID: [id number] SHYLA
[2021-05-04 03:54] LABS: Hematocrit 31.9 % (39.6-49.0); MPV 8.8 fL (7.6-11.3); RBC Red Blood Cell Count 3.39 M/uL (4.33-5.43)
[2021-05-04 04:54] LABS: Albumin 2.5 g/dL (3.4-5.0); BUN Blood Urea Nitrogen 22 mg/dL (7-18); Bicarbonate 35 mmol/L (21-32); Ferritin 1472.7 ng/mL (26-388); Glucose Level 181 mg/dL (74-106); Phosphorus 4.1 mg/dL (2.5-4.9); Potassium 3.8 mmol/L (3.5-5.1); Sodium Level 133 mmol/L (136-145)
[2021-05-04] MEDS: INSULIN -REGULAR HUMAN 50 UNIT/0.5 ML ML SQ SCH ×3 (06:00→18:00)
--- NOTE | 2021-05-04 06:25 | P.PN ---
Subjective Date of Service: 05/04/21 Primary Care Provider: Kaden Chief Complaint: covid pneumonia Subjective: No new changes Review of Systems 10-point ROS is otherwise unremarkable Physical Examination - Vital Signs Temperature: 96.9 F Blood Pressure: 132/70 Pulse: 72 Respirations: 18 Pulse Ox (%): 94 Assessment & Plan Physician Review Additional Text: Physical Exam Gen: alert/oriented HEENT: normal conjunctiva, sclera anicteric Pulm: Mildly labored breathing on high-flow oxygen. CV: sinus rhythm, no edema Abd: soft, nontender, nondistended MSK: no joint tenderness Neuro: moves all extremities, follows commands. Problem list Acute hypoxemic respiratory failure secondary to COVID-19 pneumonia Steroid-induced hyperglycemia Hypertension Hyponatremia, mild; acute; resolved hypochloremic alkalosis Leukocytosis Depression/Anxiety Continue steroids, vitamin supplementation. Completed baricitinib, completed remdesivir Continue to wean FiO2 as tolerated. Insulin sliding scale and Lantus insulin for glucose management. Leukocytosis is steroid-induced, off antibiotics. Leukocytosis resolved. He is stable on high-flow oxygen. I suspect significant residual pulmonary injury from COVID morphine/ativan as needed. Continue Zoloft for anxiety and depression. Patient is not eating much by mouth. Continue NG tube feeding Pulmonology is following Code: Full Dispo: prolonged hospitalization. guarded prognosis Time Spent Managing Pts Care (In Minutes): 30
[2021-05-04] MEDS: ASPIRIN EC 81 MG TAB PO SCH (08:02)
[2021-05-04] MEDS: FAMOTIDINE 20 MG TAB PO SCH ×2 (08:02→19:44)
[2021-05-04] MEDS: ASCORBIC ACID 500 MG TABLET PO SCH ×3 (08:02→19:44)
[2021-05-04] MEDS: ZINC SULFATE 220 MG CAP PO SCH (08:02)
[2021-05-04] MEDS: dexAMETHasone 10 MG/ML VIAL IV SCH ×2 (08:03→19:44)
[2021-05-04] MEDS: atenoloL 25 MG TAB PO SCH (08:03)
[2021-05-04] MEDS: DOCUSATE NA 100 MG CAP PO SCH ×2 (08:03→19:44)
[2021-05-04] MEDS: SERTRALINE HCL 50 MG TAB PO SCH (08:03)
[2021-05-04] MEDS: ENSURE HIGH PROTEIN 237 ML CAN PO SCH ×2 (08:03→19:45)
[2021-05-04] MEDS ORDERED: POTASSIUM CL 40 MEQ in NA CHLORIDE 0.9% 500 ML IV SCH (10:00)
--- NOTE | 2021-05-04 15:01 | PN ---
Date of Progress Note: 05/04/2021 Subjective: The patient was admitted with COVID pneumonia, respiratory failure. The patient had hyponatremia secondary to depletional secondary to poor intake. The patient had alkalosis secondary to contraction. Physical Examination: Vital Signs: When I saw the patient; blood pressure 132/70, pulse of 72, afebrile. Chest: Crackles bilateral. Heart: S1, S2. Regular. Abdomen: Soft, nontender. Extremities: No edema. Neurologic: Alert. No focality. Laboratory Data: WBC 12.4, H and H 11.1/39.9. Sodium 133, potassium 3.8, bicarb 35, BUN 22, creatinine 0.3, calcium 8.9, phosphorus 4.1. Ferritin 1472. Albumin 2.5. Current Medications: The patient on include atenolol, Xarelto, aspirin, Zoloft, tube feeding, dexamethasone 6 b.i.d., Pepcid, insulin , IV normal saline at 50 per hour, melatonin. Assessment And Plan: 1. Hyponatremia secondary to depletion, recovered, resolved. Looked to me normal volume. I am going to discontinue IV fluid. 2. Alkalosis secondary to contraction alkalosis, maintained good. Discontinue IV fluid. 3. Hypokalemia, status post supplement. We will follow up. 4. COVID pneumonia with respiratory failure as by Pulmonary. 5. Deconditioning. Continue PT/OT. JACE/LEANDRA Voice ID: [id number] Report ID: [id number] MTDD
[2021-05-04] MEDS: INSULIN GLARGINE 100 UNITS/ML SQ SCH (17:00)
[2021-05-04] MEDS: RIVAROXABAN 10 MG TABLET PO SCH (17:00)
[2021-05-04 19:16] VITALS: BMI 30.4
[2021-05-04] MEDS ORDERED: TRAZODONE 50 MG TABLET PO ONE (19:32)
[2021-05-04] MEDS ORDERED: NA CHLORIDE 0.9% 1,000 ML ONE (20:02)
[2021-05-05 04:34] LABS: Albumin 2.5 g/dL (3.4-5.0); BUN Blood Urea Nitrogen 21 mg/dL (7-18); Bicarbonate 34 mmol/L (21-32); Glucose Level 154 mg/dL (74-106); Phosphorus 4.1 mg/dL (2.5-4.9); Potassium 4.2 mmol/L (3.5-5.1); Sodium Level 137 mmol/L (136-145)
[2021-05-05] MEDS: INSULIN -REGULAR HUMAN 50 UNIT/0.5 ML ML SQ SCH ×4 (06:00→17:48)
--- NOTE | 2021-05-05 06:30 | P.PN ---
Subjective Date of Service: 05/05/21 Primary Care Provider: Kaden Chief Complaint: covid pneumonia Subjective: Improving (down to 75% hfNC, no other significant changes, +BM this morning) Review of Systems 10-point ROS is otherwise unremarkable Physical Examination - Vital Signs Temperature: 98.0 F Blood Pressure: 126/71 Pulse: 67 Respirations: 18 Pulse Ox (%): 95 Assessment & Plan Physician Review Additional Text: Physical Exam Gen: alert/oriented HEENT: normal conjunctiva, sclera anicteric Pulm: Mildly labored breathing on high-flow oxygen + nonrebreather CV: sinus rhythm, no edema Abd: soft, nontender, nondistended MSK: no joint tenderness Neuro: moves all extremities, follows commands. Problem list Acute hypoxemic respiratory failure secondary to COVID-19 pneumonia Steroid-induced hyperglycemia Hypertension Hyponatremia, mild; acute; resolved hypochloremic alkalosis Leukocytosis Depression/Anxiety Continue steroids, vitamin supplementation. Completed baricitinib, completed remdesivir Continue to wean FiO2 as tolerated. Insulin sliding scale and Lantus insulin for glucose management. Leukocytosis is steroid-induced, off antibiotics He is stable on high-flow oxygen. I suspect significant residual pulmonary injury from COVID morphine/ativan as needed. discontinued for a few days at request of - felt patient was getting too sleepy, pt with panic / anxiety today, will restart Continue Zoloft for anxiety and depression. Patient is not eating much by mouth. Continue NG tube feeding Pulmonology is following Code: Full Dispo: prolonged hospitalization. guarded prognosis Time Spent Managing Pts Care (In Minutes): 35
[2021-05-05] MEDS: atenoloL 25 MG TAB PO SCH (09:00)
[2021-05-05] MEDS: FAMOTIDINE 20 MG TAB PO SCH ×2 (09:00→20:21)
[2021-05-05] MEDS: ASPIRIN EC 81 MG TAB PO SCH (09:00)
[2021-05-05] MEDS: SERTRALINE HCL 50 MG TAB PO SCH (09:00)
[2021-05-05] MEDS: ASCORBIC ACID 500 MG TABLET PO SCH ×3 (09:00→20:20)
[2021-05-05] MEDS: DOCUSATE NA 100 MG CAP PO SCH ×2 (09:00→20:20)
[2021-05-05] MEDS: ENSURE HIGH PROTEIN 237 ML CAN PO SCH ×2 (09:00→20:22)
[2021-05-05] MEDS: dexAMETHasone 10 MG/ML VIAL IV SCH ×2 (09:00→20:21)
[2021-05-05] MEDS: ZINC SULFATE 220 MG CAP PO SCH (09:00)
--- NOTE | 2021-05-05 11:48 | PN ---
Date of Progress Note: 05/05/2021 Subjective: The patient was admitted with COVID pneumonia, respiratory failure. The patient did not require any intubation. The patient developed hyponatremia secondary to depletion. After hydration and started tube feeding, sodium has been normalized. Physical Examination: Vital Signs: Blood pressure 132/77, pulse of 93. Chest: Crackles bilateral. Heart: S1, S2. Regular. Abdomen: Soft, nontender. Extremity: No edema. Neurologic: Alert. No focality. Laboratory Data: WBC 12.4, H and H 11.1/39.1. Sodium 137, potassium 4.2, bicarb 34, BUN 21, creatin ine 0.3, calcium 9, phosphorus 4.1, magnesium of 2. Chest x-ray; interstitial infiltration, does not have any congestion. Current Medications: The patient on include; 1.Vitamin C. 2.Atenolol. 3.Xarelto. 4.Zoloft. 5.Trazodone. 6.Tube feeding. 7.Dexamethasone 6 mg b.i.d. 8.Pepcid. 9.Insulin. 10.Melatonin. Assessment And Plan: 1.Hyponatremia secondary to depletion, recovered, resolved. 2.Hypertension, controlled, optimal. 3.COVID pneumonia. Continue to follow up with Primary and Pulmonary. JACE/LEANDRA Voice ID: [id number] Report ID: [id number]
[2021-05-05] MEDS ORDERED: LORazepam 2 MG/ML VIAL IV ONE (14:00)
[2021-05-05] MEDS: RIVAROXABAN 10 MG TABLET PO SCH (17:00)
[2021-05-05] MEDS: INSULIN GLARGINE 100 UNITS/ML SQ SCH (17:48)
[2021-05-05] MEDS: MELATONIN 5 MG TABLET PO SCH (20:22)
[2021-05-06 05:19] LABS: Hematocrit 33.1 % (39.6-49.0); MPV 8.4 fL (7.6-11.3); RBC Red Blood Cell Count 3.52 M/uL (4.33-5.43)
[2021-05-06 05:40] LABS: Albumin 2.6 g/dL (3.4-5.0); BUN Blood Urea Nitrogen 19 mg/dL (7-18); Bicarbonate 35 mmol/L (21-32); C-Reactive Protein 6.62 mg/L (<3.00); Ferritin 1310.6 ng/mL (26-388); Glucose Level 92 mg/dL (74-106); Magnesium 2.2 mg/dL (1.8-2.4); Phosphorus 4.3 mg/dL (2.5-4.9); Sodium Level 138 mmol/L (136-145)
[2021-05-06] MEDS: INSULIN -REGULAR HUMAN 50 UNIT/0.5 ML ML SQ SCH ×4 (06:00→18:00)
--- NOTE | 2021-05-06 06:42 | P.PN ---
Subjective Date of Service: 05/06/21 Primary Care Provider: Kaden Chief Complaint: covid pneumonia Subjective: No new changes (dobhoff clogged and removed yesterday. patient did not want tube back in. wants to try to take PO again. no new complaints) Review of Systems 10-point ROS is otherwise unremarkable Physical Examination - Vital Signs Temperature: 97.2 F Blood Pressure: 110/70 Pulse: 69 Respirations: 19 Pulse Ox (%): 96 Assessment & Plan Physician Review Additional Text: Physical Exam Gen: alert/orientedx3 HEENT: normal conjunctiva, sclera anicteric Pulm: Mildly labored breathing on high-flow oxygen CV: sinus rhythm, no edema Abd: soft, nontender, nondistended MSK: no joint tenderness Neuro: moves all extremities, follows commands. Problem list Acute hypoxemic respiratory failure secondary to COVID-19 pneumonia Steroid-induced hyperglycemia Hypertension Hyponatremia, mild; acute; resolved hypochloremic alkalosis Depression/Anxiety Continue steroids, vitamin supplementation. Completed baricitinib, completed remdesivir Continue to wean FiO2 as tolerated. Insulin sliding scale and Lantus insulin for glucose management. He is stable on high-flow oxygen. I suspect significant residual pulmonary injury from COVID morphine/ativan as needed. discontinued for a few days at request of - felt patient was getting too sleepy, pt with panic / anxiety again on 05/05 - so restarted, will monitor Continue Zoloft for anxiety and depression. PO challenge Pulmonology is following Code: Full Dispo: prolonged hospitalization. guarded prognosis Time Spent Managing Pts Care (In Minutes): 35
--- NOTE | 2021-05-06 07:16 | RAD REPORT ---
EXAM DESCRIPTION: RAD - Chest Single View - 05/06/2021 5:50 am CLINICAL HISTORY: hypoxia, covid f/u COMPARISON: Chest Single View dated 05/02/2021; Chest Single View dated 05/01/2021; Abdomen 1 View ([facility]) dated 04/29/2021; Abdomen 1 View (KUB) dated 04/28/2021; Chest Single View dated 03/30/2021; Chest Si ngle View dated 04/03/2021 FINDINGS: Lines: None. Lungs: Moderate to severe bilateral airspace disease Pleural: No significant pleural effusions or pneumothorax. Cardiac: The heart size is within normal limits. Bones: No acute fractures. Other: IMPRESSION: Grossly similar moderate to severe bilateral airspace disease consistent with sequela of pneumonia.
[2021-05-06] MEDS: MELATONIN 5 MG TABLET PO SCH ×2 (09:00→21:05)
[2021-05-06] MEDS: DOCUSATE NA 100 MG CAP PO SCH ×2 (09:00→21:00)
[2021-05-06] MEDS: ENSURE HIGH PROTEIN 237 ML CAN PO SCH ×2 (09:00→21:00)
[2021-05-06] MEDS: ASPIRIN EC 81 MG TAB PO SCH (09:02)
[2021-05-06] MEDS: atenoloL 25 MG TAB PO SCH (09:02)
[2021-05-06] MEDS: ASCORBIC ACID 500 MG TABLET PO SCH ×3 (09:02→21:06)
[2021-05-06] MEDS: FAMOTIDINE 20 MG TAB PO SCH ×2 (09:02→21:06)
[2021-05-06] MEDS: ZINC SULFATE 220 MG CAP PO SCH (09:02)
[2021-05-06] MEDS: dexAMETHasone 10 MG/ML VIAL IV SCH ×2 (09:02→21:05)
[2021-05-06] MEDS: SERTRALINE HCL 50 MG TAB PO SCH (09:02)
--- NOTE | 2021-05-06 11:12 | P.PN ---
Subjective Date of Service: 05/06/21 Primary Care Provider: Kaden Chief Complaint: covid pneumonia hyponatremia Subjective: Improving, Working w/ PT (Patient FiO2 decreased to 85% compared to 100% yesterday) Review of Systems General: Weakness, Malaise Eyes: Unremarkable ENT: Unremarkable Respiratory: Cough, Shortness of Breath Cardiovascular: Unremarkable Gastrointestinal: Unremarkable Musculoskeletal: Back Pain Neurological: Weakness Physical Examination - Vital Signs Temperature: 97.2 F Blood Pressure: 104/59 Pulse: 72 Respirations: 20 Pulse Ox (%): 97 - Physical Exam General: Alert, Oriented x3, Cooperative HEENT: Atraumatic Neck: Supple, 2+ carotid pulse no bruit Respiratory: Crackles/rales Cardiovascular: No edema, Normal S1 S2, No rubs, No murmurs Gastrointestinal: Normal bowel sounds, Soft and benign, No ascites, No masses, No rebound, No guarding Musculoskeletal: No clubbing Neurological: Normal gait, Normal strength at 5/5 x4 extr, Cranial nerves 3-12 intact (NG tube was removed) - Studies WBC 12 H&H 11.6/33.1 sodium 138 potassium 4 bicarb 35 BUN 19 creatinine 0.35 GFR above 90 calcium 8.9 phosphorus 4.3 magnesium 2.2 ferritin to trend down to 1300 Imagings Data: Chest x-rayInterstitial infiltration bilateral Medications List Reviewed: Yes Assessment And Plan Physician Review Additional Text: Current Medications: The patient on include; 1. Vitamin C. 2. Atenolol. 3. Xarelto. 4. Zoloft. 5. Trazodone. 6. Tube feeding. 7. Dexamethasone 6 mg b.i.d. 8. Pepcid. 9. Insulin. 10. Melatonin. Assessment And Plan: 1. Hyponatremia secondary to depletion, recovered, resolved. 2. Hypertension, controlled, optimal. 3. COVID pneumonia. Continue to follow up with Primary and Pulmonary.
[2021-05-06] MEDS: INSULIN GLARGINE 100 UNITS/ML SQ SCH (17:00)
[2021-05-06] MEDS: RIVAROXABAN 10 MG TABLET PO SCH (17:00)
[2021-05-07 05:57] LABS: Albumin 2.6 g/dL (3.4-5.0); BUN Blood Urea Nitrogen 19 mg/dL (7-18); Bicarbonate 36 mmol/L (21-32); C-Reactive Protein 4.79 mg/L (<3.00); Glucose Level 95 mg/dL (74-106); Magnesium 2.3 mg/dL (1.8-2.4); Phosphorus 4.3 mg/dL (2.5-4.9); Potassium 4.1 mmol/L (3.5-5.1); Sodium Level 137 mmol/L (136-145)
[2021-05-07] MEDS: INSULIN -REGULAR HUMAN 50 UNIT/0.5 ML ML SQ SCH ×4 (06:00→17:32)
--- NOTE | 2021-05-07 06:40 | P.PN ---
Subjective Date of Service: 05/07/21 Primary Care Provider: Kaden Chief Complaint: covid pneumonia Physical Examination - Vital Signs Temperature: 98.1 F Blood Pressure: 124/71 Pulse: 68 Respirations: 18 Pulse Ox (%): 96 - Studies Medications List Reviewed: Yes Assessment And Plan - Plan # Hyponatremia secondary to appropriate ADH release from acute respiratory issues, anxiety, & low solute intake Serum Na improved to 134-135 Respiratory management per other services Avoid hypokalemia. Replete KCl prn to keep serum K 4.0 or higher for prompt hyponatremia correction. Encouraged to increase by mouth solid food intake # Acute respiratory failure from COVID pneumonia On O2 support Incentive spirometry every 2 hours when awake Mngt per other services # Hypertension Continue current antihypertensive medication regimen # Anxiety Xanax prn Sertraline # Hyperglycemia Insulin dosing per primary team # Debility He agreed to start getting OOB today # CODE STATUS Full code
[2021-05-07] MEDS: POLYETHYL GLY 3350 17 GM/DOSE PO PRN (08:04)
[2021-05-07] MEDS: atenoloL 25 MG TAB PO SCH (08:05)
[2021-05-07] MEDS: ASPIRIN EC 81 MG TAB PO SCH (08:05)
[2021-05-07] MEDS: dexAMETHasone 10 MG/ML VIAL IV SCH ×2 (08:05→20:43)
[2021-05-07] MEDS: SERTRALINE HCL 50 MG TAB PO SCH (08:06)
[2021-05-07] MEDS: FAMOTIDINE 20 MG TAB PO SCH ×2 (08:06→20:43)
[2021-05-07] MEDS: ASCORBIC ACID 500 MG TABLET PO SCH ×3 (08:06→20:43)
[2021-05-07] MEDS: ZINC SULFATE 220 MG CAP PO SCH (08:06)
[2021-05-07] MEDS: DOCUSATE NA 100 MG CAP PO SCH ×2 (08:07→20:45)
[2021-05-07] MEDS: ENSURE HIGH PROTEIN 237 ML CAN PO SCH ×2 (08:07→20:45)
[2021-05-07] MEDS: LORazepam 2 MG/ML VIAL IV PRN ×2 (10:47→20:44)
--- NOTE | 2021-05-07 11:33 | P.PN ---
Date of Service: 05/07/21 Subjective Date of Service: 05/06/21 Primary Care Provider: Kaden Chief Complaint: covid pneumonia Subjective: Patient is alert and oriented. Physically the patient is stable and is in no acute distress. Appears comfortable. Patient is however, having episodes of anxiety and will require some Ativan at this point. Review of Systems 10-point ROS is otherwise unremarkable Physical Examination - Vital Signs Temperature: 97.2 F Blood Pressure: 110/70 Pulse: 69 Respirations: 19 Pulse Ox (%): 96 Assessment & Plan Physician Review Additional Text: Physical Exam Gen: alert/orientedx3 HEENT: normal conjunctiva, sclera anicteric Pulm: Mildly labored breathing on high-flow oxygen CV: sinus rhythm, no edema Abd: soft, nontender, nondistended MSK: no joint tenderness Neuro: moves all extremities, follows commands. Problem list Acute hypoxemic respiratory failure secondary to COVID-19 pneumonia Steroid-induced hyperglycemia Hypertension Hyponatremia, mild; acute; resolved hypochloremic alkalosis Depression/Anxiety Continue steroids, vitamin supplementation. Completed baricitinib, completed remdesivir Continue to wean FiO2 as tolerated. Insulin sliding scale and Lantus insulin for glucose management. He is stable on high-flow oxygen. I suspect significant residual pulmonary injury from COVID The patient is experiencing significant anxiety. Recently the combination of Ativan and morphine was causing sedation. Morphine discontinued we will attempt to use Ativan judiciously. Continue Zoloft for anxiety and depression. PO challenge Pulmonology is following Code: Full Dispo: prolonged hospitalization. guarded prognosis Time Spent Managing Pts Care (In Minutes): 35 <Manuel Munroe - Last Filed: 05/07/21 17:05> Patient seen and examined on rounds Agree with plan of care as noted above Slow improvement <Ronnie Jay - Last Filed: 05/07/21 17:19>
--- NOTE | 2021-05-07 13:53 | P.PN ---
Subjective Date of Service: 05/07/21 Primary Care Provider: Kaden Chief Complaint: covid pneumonia Stable on high conc of Fio2 Review of Systems General: Weakness Respiratory: Shortness of Breath Physical Examination - Vital Signs Temperature: 97.9 F Blood Pressure: 117/70 Pulse: 70 Respirations: 22 Pulse Ox (%): 93 - Physical Exam General: Alert, Oriented x3, Cooperative, Moderate distress - Studies Medications List Reviewed: Yes Assessment & Plan - Problems (Diagnosis) (1) Pneumonia due to COVID-19 virus Current Visit: Yes Status: Acute Plan: Resp failure on Fio2 80% cXRy severe COVID penumonia, check ABG/labs reviewed/add lasix po
[2021-05-07 15:02] LABS: Blood Gas Oxyhemoglobin 92.1 % (94-97); Blood O2 Saturation 94.9 % (92-98.5)
[2021-05-07] MEDS: FUROSEMIDE 20 MG TABLET PO SCH (15:21)
[2021-05-07] MEDS: RIVAROXABAN 10 MG TABLET PO SCH (17:36)
[2021-05-07] MEDS: INSULIN GLARGINE 100 UNITS/ML SQ SCH (17:37)
[2021-05-08] MEDS: INSULIN -REGULAR HUMAN 50 UNIT/0.5 ML ML SQ SCH ×5 (06:00→21:49)
--- NOTE | 2021-05-08 06:51 | P.PN ---
Date of Service: 05/08/21 Subjective Continues to improve, FiO2 down to 80%. Feels better today, states he typically feels better/has more strength and energy at nighttime. Tolerating p.o. intake, states it is easier to eat compared to when he last tried 1 week ago At times he feels discouraged No new complaints Review of Systems 10-point ROS is otherwise unremarkable Physical Examination Gen: alert/orientedx3 HEENT: normal conjunctiva, sclera anicteric Pulm: Mildly labored breathing on high-flow oxygen CV: sinus rhythm, no edema Abd: soft, nontender, nondistended Neuro: moves all extremities, follows commands. Problem list Acute hypoxemic respiratory failure secondary to COVID-19 pneumonia Steroid-induced hyperglycemia Hypertension Hyponatremia, mild; acute; resolved hypochloremic alkalosis Depression/Anxiety Insomnia Continue steroids, vitamin supplementation. Completed baricitinib, completed remdesivir Continue to wean FiO2 as tolerated. Insulin sliding scale and Lantus insulin for glucose management. He is stable on high-flow oxygen. Patient has been dealing with significant anxiety throughout the hospitalization, continue low-dose Ativan Patient also reports significant insomnia, continue trazodone 25 mg Continue Zoloft for anxiety and depression. Pulmonology is following Code: Full Dispo: prolonged hospitalization. guarded prognosis
[2021-05-08] MEDS: ENSURE HIGH PROTEIN 237 ML CAN PO SCH ×2 (09:00→19:51)
--- NOTE | 2021-05-08 09:12 | P.PN ---
Subjective Date of Service: 05/08/21 Primary Care Provider: Kaden Chief Complaint: covid pneumonia Subjective Pt with COVID pneumonia, had Hyponatremia Today Pt clinically improves now on vapotherm 70% tolerating diet cont current management Physical exam general: AAOX3, NAD Neck; Supple, No elevated JVD chest decreased air entry , basal rales hear: RRR, normal S1,2 no murmur or rub Chest: CTAB, no rales or wheezes Abdomen: Soft , Nt Extremities No edema or ulcer # Hyponatremia secondary to appropriate ADH release from acute respiratory issues, anxiety, & low solute intake resolved encouraged to cont food inatke # Acute respiratory failure from [place] with pneumonia On O2 support Mngt per other services # Hypertension BP controlled Continue current antihypertensive medication regimen # Hyperglycemia Insulin dosing per primary team Physical Examination - Vital Signs Temperature: 97.9 F Blood Pressure: 125/69 Pulse: 64 Respirations: 20 Pulse Ox (%): 97 - Studies Medications List Reviewed: Yes
[2021-05-08] MEDS: dexAMETHasone 10 MG/ML VIAL IV SCH ×2 (09:15→19:50)
[2021-05-08] MEDS: DOCUSATE NA 100 MG CAP PO SCH ×2 (09:15→19:49)
[2021-05-08] MEDS: FAMOTIDINE 20 MG TAB PO SCH ×2 (09:15→19:49)
[2021-05-08] MEDS: FUROSEMIDE 20 MG TABLET PO SCH (09:15)
[2021-05-08] MEDS: ASCORBIC ACID 500 MG TABLET PO SCH ×3 (09:15→19:49)
[2021-05-08] MEDS: ASPIRIN EC 81 MG TAB PO SCH (09:15)
[2021-05-08] MEDS: SERTRALINE HCL 50 MG TAB PO SCH (09:15)
[2021-05-08] MEDS: atenoloL 25 MG TAB PO SCH (09:15)
[2021-05-08] MEDS: INSULIN GLARGINE 100 UNITS/ML SQ SCH (17:21)
[2021-05-08] MEDS: RIVAROXABAN 10 MG TABLET PO SCH (17:22)
[2021-05-08] MEDS: TRAZODONE 50 MG TABLET PO PRN (19:50)
[2021-05-09] MEDS: INSULIN -REGULAR HUMAN 50 UNIT/0.5 ML ML SQ SCH ×3 (05:24→16:33)
[2021-05-09 06:23] LABS: Hematocrit 33.5 % (39.6-49.0); MPV 8.6 fL (7.6-11.3); RBC Red Blood Cell Count 3.58 M/uL (4.33-5.43)
--- NOTE | 2021-05-09 06:37 | P.PN ---
Date of Service: 05/09/21 Subjective improving slowly, oxygen requirement decreasing tolerating PO. slept ok Review of Systems 10-point ROS is otherwise unremarkable Physical Examination Gen: AOx3, NAD HEENT: normal conjunctiva, sclera anicteric Pulm: Mildly labored breathing on high-flow oxygen, nonrebreather over HFNC CV: sinus rhythm, no edema Abd: soft, nontender, nondistended Neuro: moves all extremities Problem list Acute hypoxemic respiratory failure secondary to COVID-19 pneumonia Steroid-induced hyperglycemia Hypertension Hyponatremia, mild; acute; resolved hypochloremic alkalosis Depression/Anxiety Insomnia Continue steroids, vitamin supplementation. Completed baricitinib, completed remdesivir Continue to wean FiO2 as tolerated. Insulin sliding scale and Lantus insulin for glucose management. He is stable on high-flow oxygen. Patient has been dealing with significant anxiety throughout the hospitalization, continue low-dose Ativan PRN Patient also reports significant insomnia, continue trazodone 25 mg Continue Zoloft for anxiety and depression. Pulmonology is following Code: Full Dispo: prolonged hospitalization. slow improvement guarded prognosis
[2021-05-09 06:50] LABS: BUN Blood Urea Nitrogen 16 mg/dL (7-18); Bicarbonate 35 mmol/L (21-32); Glucose Level 86 mg/dL (74-106); Magnesium 2.3 mg/dL (1.8-2.4); Potassium 3.9 mmol/L (3.5-5.1); Sodium Level 136 mmol/L (136-145)
[2021-05-09] MEDS: FAMOTIDINE 20 MG TAB PO SCH ×2 (08:28→20:45)
[2021-05-09] MEDS: ASPIRIN EC 81 MG TAB PO SCH (08:28)
[2021-05-09] MEDS: DOCUSATE NA 100 MG CAP PO SCH ×2 (08:28→20:44)
[2021-05-09] MEDS: FUROSEMIDE 20 MG TABLET PO SCH (08:29)
[2021-05-09] MEDS: SERTRALINE HCL 50 MG TAB PO SCH (08:29)
[2021-05-09] MEDS: atenoloL 25 MG TAB PO SCH (08:29)
[2021-05-09] MEDS: ASCORBIC ACID 500 MG TABLET PO SCH (08:29)
[2021-05-09] MEDS: ENSURE HIGH PROTEIN 237 ML CAN PO SCH ×2 (08:30→20:45)
[2021-05-09] MEDS: dexAMETHasone 10 MG/ML VIAL IV SCH (08:35)
[2021-05-09] MEDS ORDERED: POTASSIUM CL SA 10 MEQ TAB PO ONE (09:00)
--- NOTE | 2021-05-09 11:37 | P.PN ---
Subjective Date of Service: 05/09/21 Primary Care Provider: Kaden Chief Complaint: covid pneumonia Patient is improving feeling better oxygen requirements declining Review of Systems General: Weakness Respiratory: Shortness of Breath Physical Examination - Vital Signs Temperature: 96.7 F Blood Pressure: 131/67 Pulse: 78 Respirations: 20 Pulse Ox (%): 98 - Physical Exam General: Alert, Oriented x3, Cooperative, Mild distress - Studies Medications List Reviewed: Yes Assessment & Plan - Problems (Diagnosis) (1) Pneumonia due to COVID-19 virus Current Visit: Yes Status: Acute Plan: Respiratory failure patient's condition is improving oxygen requirements are declining change to p.o. dexamethasone DC ascorbic acid trait sat to 90%
--- NOTE | 2021-05-09 14:28 | P.PN ---
Subjective Date of Service: 05/09/21 Primary Care Provider: Kaden Chief Complaint: covid pneumonia Subjective Pt with COVID pneumonia, had Hyponatremia Today bi overnight events now on vapotherm 70% tolerating diet cont current management Physical exam general: AAOX3, NAD Neck; Supple, No elevated JVD chest decreased air entry , basal rales hear: RRR, normal S1,2 no murmur or rub Chest: CTAB, no rales or wheezes Abdomen: Soft , Nt Extremities No edema or ulcer # Hyponatremia secondary to appropriate ADH release from acute respiratory issues, anxiety, & low solute intake resolved encouraged to cont food inatke # Acute respiratory failure from [place] with pneumonia On O2 support Mngt per other services # Hypertension BP controlled Continue current antihypertensive medication regimen # Hyperglycemia Insulin dosing per primary team Physical Examination - Vital Signs Temperature: 97.3 F Blood Pressure: 107/64 Pulse: 59 Respirations: 20 Pulse Ox (%): 97 - Studies Medications List Reviewed: Yes
[2021-05-09] MEDS: INSULIN GLARGINE 100 UNITS/ML SQ SCH (17:51)
[2021-05-09] MEDS: RIVAROXABAN 10 MG TABLET PO SCH (17:51)
[2021-05-09] MEDS: TRAZODONE 50 MG TABLET PO PRN (20:44)
[2021-05-09] MEDS: dexAMETHasone 4 MG TAB PO SCH (20:44)
[2021-05-10] MEDS: INSULIN -REGULAR HUMAN 50 UNIT/0.5 ML ML SQ SCH ×4 (06:00→16:39)
--- NOTE | 2021-05-10 06:16 | P.PN ---
Date of Service: 05/10/21 Subjective Improving, oxygen supplementation decreasing Worked with physical therapy today States buttocks is getting a little sore, repositioning himself often, asking for "donut" to relieve some pressure Review of Systems 10-point ROS is otherwise unremarkable Physical Examination Gen: AOx3, NAD HEENT: normal conjunctiva, sclera anicteric Pulm: Mildly labored breathing on high-flow oxygen CV: sinus rhythm, no edema Abd: soft, nontender, nondistended Neuro: moves all extremities Problem list Acute hypoxemic respiratory failure secondary to COVID-19 pneumonia Steroid-induced hyperglycemia Hypertension Hyponatremia, mild; acute; resolved hypochloremic alkalosis Depression/Anxiety Insomnia Continue steroids, vitamin supplementation. Completed baricitinib, completed remdesivir Continue to wean FiO2 as tolerated. Insulin sliding scale and Lantus insulin for glucose management. Patient has been dealing with significant anxiety throughout the hospitalization, continue low-dose Ativan PRN Patient also reports significant insomnia, continue trazodone 25 mg Continue Zoloft for anxiety and depression. Pulmonology is following Code: Full Dispo: prolonged hospitalization. slow improvement guarded prognosis Refused LTAC Time Spent Managing Pts Care (In Minutes): 35
[2021-05-10] MEDS: ASPIRIN EC 81 MG TAB PO SCH (08:47)
[2021-05-10] MEDS: FAMOTIDINE 20 MG TAB PO SCH ×2 (08:47→20:20)
[2021-05-10] MEDS: FUROSEMIDE 20 MG TABLET PO SCH (08:47)
[2021-05-10] MEDS: DOCUSATE NA 100 MG CAP PO SCH ×2 (08:47→20:20)
[2021-05-10] MEDS: POTASSIUM 25 MEQ EFFERV TAB PO SCH (08:48)
[2021-05-10] MEDS: atenoloL 25 MG TAB PO SCH (08:48)
[2021-05-10] MEDS: dexAMETHasone 4 MG TAB PO SCH ×2 (08:48→20:20)
[2021-05-10] MEDS: SERTRALINE HCL 50 MG TAB PO SCH (08:48)
[2021-05-10] MEDS: ENSURE HIGH PROTEIN 237 ML CAN PO SCH ×2 (08:49→20:20)
[2021-05-10] MEDS: INSULIN GLARGINE 100 UNITS/ML SQ SCH (16:43)
[2021-05-10] MEDS: RIVAROXABAN 10 MG TABLET PO SCH (16:44)
[2021-05-10] MEDS: TRAZODONE 50 MG TABLET PO PRN (20:20)
--- NOTE | 2021-05-11 01:42 | PN ---
Date of Progress Note: 05/10/2021 Chief Complaint: COVID pneumonia, hyponatremia. Subjective: Patient is tolerating p.o. intake. He is on high oxygen flow with Vapotherm. Physical Examination: Lungs: Normal respiratory effort. Heart: S1, S2. Abdomen: Soft. Extremities: No edema. Impression And Plan: 1.Hyponatremia. Continue to monitor electrolytes. Encourage high-protein intake. P.o. intake is i mproving. 2.Acute respiratory failure from COVID pneumonia on O2 support, management per primary team. 3.Hypertension. Blood pressure control. Continue current medication. 4.Hyperglycemia. Insulin dose was adjusted by primary team. JUSTYN/LEANDRA Voice ID: [id number] Report ID: [id number]
[2021-05-11 03:59] LABS: Hematocrit 33.3 % (39.6-49.0); MPV 8.4 fL (7.6-11.3); RBC Red Blood Cell Count 3.52 M/uL (4.33-5.43)
[2021-05-11 04:24] LABS: BUN Blood Urea Nitrogen 13 mg/dL (7-18); Bicarbonate 31 mmol/L (21-32); Glucose Level 193 mg/dL (74-106); Potassium 3.7 mmol/L (3.5-5.1); Sodium Level 135 mmol/L (136-145)
[2021-05-11 04:25] LABS: Magnesium 2.1 mg/dL (1.8-2.4)
[2021-05-11] MEDS: INSULIN -REGULAR HUMAN 50 UNIT/0.5 ML ML SQ SCH ×4 (06:00→17:03)
[2021-05-11] MEDS ORDERED: KCL 20 MEQ/100 mL IVPB 20 MEQ/100 ML BAG IV SCH (08:00)
[2021-05-11] MEDS: ASPIRIN EC 81 MG TAB PO SCH (08:48)
[2021-05-11] MEDS: atenoloL 25 MG TAB PO SCH (08:48)
[2021-05-11] MEDS: POTASSIUM 25 MEQ EFFERV TAB PO SCH (08:49)
[2021-05-11] MEDS: FUROSEMIDE 20 MG TABLET PO SCH (08:49)
[2021-05-11] MEDS: DOCUSATE NA 100 MG CAP PO SCH ×2 (08:49→21:52)
[2021-05-11] MEDS: SERTRALINE HCL 50 MG TAB PO SCH (08:49)
[2021-05-11] MEDS: FAMOTIDINE 20 MG TAB PO SCH ×2 (08:49→21:52)
[2021-05-11] MEDS: dexAMETHasone 4 MG TAB PO SCH ×2 (08:49→21:52)
[2021-05-11] MEDS: ENSURE HIGH PROTEIN 237 ML CAN PO SCH ×2 (08:50→21:00)
[2021-05-11 08:57] LABS: BUN Blood Urea Nitrogen 10 mg/dL (7-18); Bicarbonate 31 mmol/L (21-32); Glucose Level 108 mg/dL (74-106); Potassium 3.7 mmol/L (3.5-5.1); Sodium Level 136 mmol/L (136-145)
[2021-05-11] MEDS ORDERED: POTASSIUM CL 40 MEQ in NA CHLORIDE 0.9% 500 ML IV SCH (12:00)
--- NOTE | 2021-05-11 13:26 | RAD REPORT ---
EXAM DESCRIPTION: RAD - Abdomen 1 View (KUB) - 05/11/2021 1:06 pm CLINICAL HISTORY: abdominal pain COMPARISON: Abdomen 1 View (KUB) dated 04/29/2021; Abdomen 1 View (KUB) dated 04/28/2021; Abdomen 1 Vi ew (KUB) dated 04/27/2021 FINDINGS: Bowel gas pattern is non-specific. No obstruction, free air or pneumatosis. Moderate amou nt of stool is scattered in the colon without distending the diameter. Feeding tube has been removed since the comparison study. Small phleboliths is seen in the lower left pelvis. This is most likely a phlebolith. A distal left ureteral calculus is possible if the patient has a left renal colic patter n. No acute bone finding. IMPRESSION: KUB examination is generally unremarkable with no acute finding. A small left lower pelvic calcification is probably a phlebolith. Distal left ureteral calculus canno t be excluded if the patient has a left renal colic pain pattern.
--- NOTE | 2021-05-11 14:56 | PN ---
Date of Progress Note: 05/11/2021 Subjective: The patient was admitted with COVID pneumonia. The patient has been developed hyponatre geovanni secondary to depletion, recovered. The patient complaining from sometimes stool incontinence wit h rectal pain. Physical Examination: Vital Signs: Blood pressure 124/77. Chest: Crackles bilateral. Heart: S1, S2. Systolic murmur. Abdomen: Soft, nontender. Extremity: No edema. Neuro: Alert. No focality. Laboratory Data: WBC 15, H and H 11.6/33. Sodium 136, potassium 3.7, bicarb 31, BUN 10, creatinine 0.4, calcium 8.6. Current Medications: The patient on include Lasix 20 daily, Pepcid, dexamethasone 4 b.i.d., insulin, KCl. Assessment And Plan: 1.Hyponatremia secondary to depletion, recovered, resolved. 2.Hypokalemia. We will supplement. 3.COVID pneumonia as by primary. 4.Hypertension, controlled, optimal. 5.Deconditioning. Continue PT/OT. JACE/LEANDRA Voice ID: [id number] Report ID: [id number]
[2021-05-11] MEDS: POLYETHYL GLY 3350 17 GM/DOSE PO PRN (15:08)
--- NOTE | 2021-05-11 16:39 | P.PN ---
Subjective Date of Service: 05/11/21 Primary Care Provider: Kaden Chief Complaint: covid pneumonia Patient now tolerating hiflow 25 liters/minute and 60% FiO2. Physical Examination - Vital Signs Temperature: 97.7 F Blood Pressure: 101/62 Pulse: 73 Respirations: 20 Pulse Ox (%): 95 - Physical Exam General: Alert, In no apparent distress HEENT: Other (HFNC) Respiratory: Other (Nonlabored breathing) Cardiovascular: Regular rate/rhythm, Normal S1 S2 Gastrointestinal: Soft and benign, Non-distended Musculoskeletal: No swelling Integumentary: No rashes, No erythema, No cyanosis Neurological: Normal strength at 5/5 x4 extr - Studies Medications List Reviewed: Yes Assessment And Plan - Current Problems (Diagnosis) (1) Acute respiratory failure with hypoxia Current Visit: Yes Status: Acute (2) Pneumonia due to COVID-19 virus Current Visit: Yes Status: Acute (3) Essential hypertension Current Visit: Yes Status: Acute Physician Review Additional Text: Problem list Acute hypoxemic respiratory failure secondary to COVID-19 pneumonia Steroid-induced hyperglycemia Hypertension Hyponatremia, mild; acute; resolved hypochloremic alkalosis Depression/Anxiety Continue steroids, vitamin supplementation. Completed baricitinib, completed remdesivir Continue to wean FiO2 as tolerated. Insulin sliding scale and Lantus insulin for glucose management. His oxygen requirement is improving. I suspect significant residual pulmonary injury from COVID Morphine and ativan as needed for anxiety and shortness of breath. Continue Zoloft for anxiety and depression. Patient now tolerating p.o. Pulmonology is following. Code: Full Dispo: prolonged hospitalization. guarded prognosis
[2021-05-11] MEDS: RIVAROXABAN 10 MG TABLET PO SCH (17:05)
[2021-05-11] MEDS: INSULIN GLARGINE 100 UNITS/ML SQ SCH (17:10)
[2021-05-11] MEDS ORDERED: BISACODYL 10 MG RECTAL SUPP PR ONE (18:00)
[2021-05-11] MEDS: TRAZODONE 50 MG TABLET PO PRN (21:51)
[2021-05-12] MEDS: INSULIN -REGULAR HUMAN 50 UNIT/0.5 ML ML SQ SCH ×4 (06:00→17:08)
[2021-05-12] MEDS: ENSURE HIGH PROTEIN 237 ML CAN PO SCH ×2 (09:00→20:09)
[2021-05-12] MEDS: POLYETHYL GLY 3350 17 GM/DOSE PO PRN (09:55)
[2021-05-12] MEDS: POTASSIUM 25 MEQ EFFERV TAB PO SCH (09:56)
[2021-05-12] MEDS: ASPIRIN EC 81 MG TAB PO SCH (09:56)
[2021-05-12] MEDS: dexAMETHasone 4 MG TAB PO SCH ×2 (09:57→20:08)
[2021-05-12] MEDS: FAMOTIDINE 20 MG TAB PO SCH ×2 (09:57→20:08)
[2021-05-12] MEDS: atenoloL 25 MG TAB PO SCH (09:57)
[2021-05-12] MEDS: FUROSEMIDE 20 MG TABLET PO SCH (09:58)
[2021-05-12] MEDS: DOCUSATE NA 100 MG CAP PO SCH ×2 (09:58→20:08)
[2021-05-12] MEDS: SERTRALINE HCL 50 MG TAB PO SCH (09:58)
--- NOTE | 2021-05-12 11:49 | PN ---
Date of Progress Note: 05/12/2021 Subjective: The patient was admitted with COVID pneumonia. Had hyponatremia secondary to depletiona l. Physical Examination: Vital Signs: When I saw the patient; the patient's blood pressure 139/86, pulse of 86. The patient had good urine output, voiding. Chest: Crackles with squeak on the left side. Heart: S1, S2. Regular. Abdomen: Soft, nontender. Extremity: No edema. The patient requiring less FiO2. Currently, the patient dropped to 60%. Laboratory Data: H and H 11.6/33.3. Sodium 136, potassium 3.7, bicarb 31, BUN 10, creatinine 0.4, c alcium 8.6. Current Medications: The patient on include aspirin, Xarelto, allopurinol, atenolol, Zoloft, lorazep am, trazodone, Ensure, dexamethasone 4 b.i.d., insulin, Bisacodyl, KCl. Assessment And Plan: 1.Hyponatremia secondary to depletion, recovered, resolved. 2.Alkalosis secondary to contraction alkalosis, maintained good. 3.Hypercapnic respiratory failure secondary to COVID. Continue to follow up with Pulmonary. 4.Hypokalemia, status post supplement. We will follow up. 5.COVID pneumonia, improving. We will follow up with Pulmonary and Primary. 6.Deconditioning. Continue PT/OT. JACE/LEANDRA Voice ID: [id number] Report ID: [id number]
[2021-05-12] MEDS: RIVAROXABAN 10 MG TABLET PO SCH (17:14)
[2021-05-12] MEDS: INSULIN GLARGINE 100 UNITS/ML SQ SCH (17:15)
--- NOTE | 2021-05-12 17:50 | P.PN ---
Subjective Date of Service: 05/12/21 Primary Care Provider: Kaden Chief Complaint: covid pneumonia Patient is doing better today. He is not tolerating 15 L oxygen by nasal cannula. He has no new complain. Physical Examination - Vital Signs Temperature: 97.5 F Blood Pressure: 139/78 Pulse: 67 Respirations: 19 Pulse Ox (%): 97 - Physical Exam General: Alert, In no apparent distress, Oriented x3 HEENT: Mucous membr. moist/pink Neck: JVD not distended Respiratory: Other (Nonlabored breathing) Cardiovascular: Regular rate/rhythm, Normal S1 S2 Gastrointestinal: Soft and benign, Non-distended, No tenderness Musculoskeletal: No swelling Integumentary: No rashes Neurological: Normal strength at 5/5 x4 extr - Studies Medications List Reviewed: Yes Assessment And Plan - Current Problems (Diagnosis) (1) Acute respiratory failure with hypoxia Current Visit: Yes Status: Acute (2) Pneumonia due to COVID-19 virus Current Visit: Yes Status: Acute (3) Essential hypertension Current Visit: Yes Status: Acute Physician Review Additional Text: Problem list Acute hypoxemic respiratory failure secondary to COVID-19 pneumonia Steroid-induced hyperglycemia Hypertension Hyponatremia, mild; acute; resolved hypochloremic alkalosis Depression/Anxiety Continue steroids, vitamin supplementation. Completed baricitinib, completed remdesivir Continue to wean FiO2 as tolerated. Insulin sliding scale and Lantus insulin for glucose management. His oxygen requirement is improving. Morphine and ativan as needed for anxiety and shortness of breath. Continue Zoloft for anxiety and depression. Patient is generally weak. He is tolerating p.o. Pulmonology is following. Continue PT Code: Full Dispo: prolonged hospitalization. s
[2021-05-12] MEDS: LORazepam 2 MG/ML VIAL IV PRN (20:08)
[2021-05-13 04:01] LABS: Absolute Lymphocytes (CBC) 3.4 K/uL (0.7-4.9); Basophils % 0.7 % (0-1.3); Hematocrit 33.5 % (39.6-49.0); Lymphocytes % 18.2 % (15.3-44.8); MPV 8.3 fL (7.6-11.3); RBC Red Blood Cell Count 3.52 M/uL (4.33-5.43)
[2021-05-13 04:14] LABS: Albumin 2.7 g/dL (3.4-5.0); BUN Blood Urea Nitrogen 16 mg/dL (7-18); Bicarbonate 34 mmol/L (21-32); Glucose Level 129 mg/dL (74-106); Phosphorus 4.2 mg/dL (2.5-4.9); Potassium 4.5 mmol/L (3.5-5.1); Sodium Level 137 mmol/L (136-145)
[2021-05-13 04:59] LABS: Blood Morphology Comment NOT SEEN (NOT SEEN); Platelet Estimate ADEQ
[2021-05-13] MEDS: INSULIN -REGULAR HUMAN 50 UNIT/0.5 ML ML SQ SCH ×4 (06:00→17:53)
[2021-05-13] MEDS: POTASSIUM 25 MEQ EFFERV TAB PO SCH (09:21)
[2021-05-13] MEDS: POLYETHYL GLY 3350 17 GM/DOSE PO PRN (09:21)
[2021-05-13] MEDS: ENSURE HIGH PROTEIN 237 ML CAN PO SCH ×2 (09:22→21:00)
[2021-05-13] MEDS: dexAMETHasone 4 MG TAB PO SCH ×2 (09:22→21:51)
[2021-05-13] MEDS: FAMOTIDINE 20 MG TAB PO SCH ×2 (09:22→21:50)
[2021-05-13] MEDS: atenoloL 25 MG TAB PO SCH (09:22)
[2021-05-13] MEDS: DOCUSATE NA 100 MG CAP PO SCH ×2 (09:27→21:50)
[2021-05-13] MEDS: SERTRALINE HCL 50 MG TAB PO SCH (09:27)
[2021-05-13] MEDS: ASPIRIN EC 81 MG TAB PO SCH (09:27)
[2021-05-13] MEDS: FUROSEMIDE 20 MG TABLET PO SCH (09:27)
--- NOTE | 2021-05-13 12:42 | P.PN ---
Subjective Date of Service: 05/13/21 Primary Care Provider: Kaden Chief Complaint: covid pneumonia Improving oxygen requirements declining Review of Systems General: Weakness Respiratory: Shortness of Breath Physical Examination - Vital Signs Temperature: 98.6 F Blood Pressure: 117/71 Pulse: 78 Respirations: 28 Pulse Ox (%): 90 - Studies Medications List Reviewed: Yes Assessment & Plan - Problems (Diagnosis) (1) Pneumonia due to COVID-19 virus Current Visit: Yes Status: Acute Plan: Patient is improving 4 L of nasal cannula oxygen continue to titrate to a sat of 90% white count is elevated no change in present therapy
--- NOTE | 2021-05-13 13:13 | P.PN ---
Subjective Date of Service: 05/13/21 Primary Care Provider: Kaden Chief Complaint: covid pneumonia Still complaining from shortness of breath but the requirement of oxygenation has been decreased Review of Systems General: Weakness Eyes: Unremarkable ENT: Unremarkable Respiratory: Cough, Shortness of Breath, SOB with Excertion, Wheezing Cardiovascular: Unremarkable Gastrointestinal: Constipation Genitourinary: Unremarkable Musculoskeletal: Back Pain Physical Examination - Vital Signs Temperature: 98.6 F Blood Pressure: 117/71 Pulse: 78 Respirations: 28 Pulse Ox (%): 90 - Physical Exam General: Alert, Oriented x3 HEENT: Atraumatic Neck: Supple, JVD not distended Respiratory: Crackles/rales Cardiovascular: No edema, Normal S1 S2, Systolic murmur Capillary refill: <2 Seconds Gastrointestinal: Normal bowel sounds, Non-distended, No ascites, No tenderness Musculoskeletal: No clubbing Neurological: Normal strength at 5/5 x4 extr, Cranial nerves 3-12 intact - Studies WBC 18.9 H&H 11.7/33.5 sodium 137 potassium 4.5 bicarb 34 BUN 16 creatinine 0.4 calcium 8.7 Medications List Reviewed: Yes Assessment & Plan Physician Review Additional Text: Problem list Current Medications: The patient on include aspirin, Xarelto, allopurinol, atenolol, Zoloft, lorazepam, trazodone, Ensure, dexamethasone 4 b.i.d., insulin, Bisacodyl, KCl. Assessment And Plan: 1. Hyponatremia secondary to depletion, recovered, resolved. 2. Alkalosis secondary to contraction alkalosis, status post Diamox maintained good. 3. Hypercapnic respiratory failure secondary to COVID. Continue to follow up with Pulmonary. 4. Hypokalemia, status post supplement. We will follow up. 5. COVID pneumonia, improving. We will follow up with Pulmonary and Primary. 6. Leukocytosis no fever I get a repeat chest x-ray and UA 7. deconditioning. Continue PT/OT.
[2021-05-13] MEDS: ALPRAZOLAM 0.25 MG TABLET PO SCH ×2 (14:26→20:00)
--- NOTE | 2021-05-13 14:54 | RAD REPORT ---
EXAM DESCRIPTION: RAD - Chest Single View - 05/13/2021 2:34 pm CLINICAL HISTORY: COPD COMPARISON: May 06 TECHNIQUE: AP portable chest image was obtained 05/13/2021 2:34 pm . FINDINGS: Lung volumes are very low in the exam is underpenetrated in terms of film technique. Diffu sely prominent interstitial opacification is present similar to comparison. Alveolar opacification is present slightly worse on the left. Cardiomediastinal silhouette is accentuated by the portable tech nique and low lung volumes. No gross change is seen. No measurable pleural effusion and no pneumothorax. No acute bony abnormality seen. No acute aortic findings suspected. IMPRESSION: Limited portable examination shows interstitial and alveolar opacities similar to slight ly worse than on the May 02 study. Bilateral pneumonia is certainly a possibility but has shown no change from May 02. Pneumonia e tiologies would include COVID-19 pneumonia. Noninfectious interstitial edema superimposed on COPD possible as well.
--- NOTE | 2021-05-13 16:21 | P.PN ---
Subjective Date of Service: 05/13/21 Primary Care Provider: Kaden Chief Complaint: covid pneumonia Patient is tolerating 9 L oxygen by nasal cannula He has no new complain. Physical Examination - Vital Signs Temperature: 98.6 F Blood Pressure: 117/71 Pulse: 78 Respirations: 28 Pulse Ox (%): 90 - Physical Exam General: Alert, In no apparent distress Neck: JVD not distended Respiratory: Other (Nonlabored breathing) Cardiovascular: No edema, Regular rate/rhythm, Normal S1 S2 Gastrointestinal: Soft and benign, Non-distended Musculoskeletal: No swelling Integumentary: No rashes - Studies Medications List Reviewed: Yes Assessment And Plan - Current Problems (Diagnosis) (1) Acute respiratory failure with hypoxia Current Visit: Yes Status: Acute (2) Pneumonia due to COVID-19 virus Current Visit: Yes Status: Acute (3) Essential hypertension Current Visit: Yes Status: Acute - Plan Problem list Acute hypoxemic respiratory failure secondary to COVID-19 pneumonia Steroid-induced hyperglycemia Hypertension Hyponatremia, mild; acute; resolved hypochloremic alkalosis Depression/Anxiety Continue steroids, vitamin supplementation. Completed baricitinib, completed remdesivir Continue to wean FiO2 as tolerated. Insulin sliding scale and Lantus insulin for glucose management. His oxygen requirement continue to improve. Morphine and ativan as needed for anxiety and shortness of breath. Continue Zoloft for anxiety and depression. Patient is generally weak. He is tolerating p.o. Pulmonology is following. Continue PT. Overall patient is clinically improving. Code: Full Dispo: prolonged hospitalization. Physician Review Additional Text: Problem list Current Medications: The patient on include aspirin, Xarelto, allopurinol, atenolol, Zoloft, lorazepam, trazodone, Ensure, dexamethasone 4 b.i.d., insulin, Bisacodyl, KCl. Assessment And Plan: 1. Hyponatremia secondary to depletion, recovered, resolved. 2. Alkalosis secondary to contraction alkalosis, status post Diamox maintained good. 3. Hypercapnic respiratory failure secondary to COVID. Continue to follow up with Pulmonary. 4. Hypokalemia, status post supplement. We will follow up. 5. COVID pneumonia, improving. We will follow up with Pulmonary and Primary. 6. Leukocytosis no fever I get a repeat chest x-ray and UA 7. deconditioning. Continue PT/OT.
[2021-05-13] MEDS: RIVAROXABAN 10 MG TABLET PO SCH (16:29)
[2021-05-13 17:06] LABS: Urine Appearance TURBID (Clear); Urine Bilirubin NEGATIVE (Negative); Urine Blood NEGATIVE (Negative); Urine Color YELLOW (Yellow); Urine Glucose NEGATIVE (Negative); Urine Protein NEGATIVE (Negative); Urine Specific Gravity 1.015 (1.005-1.030)
[2021-05-13 17:31] LABS: Urine Microscopic Reflex NO UMIC
[2021-05-13] MEDS: INSULIN GLARGINE 100 UNITS/ML SQ SCH (18:20)
[2021-05-13] MEDS: TRAZODONE 50 MG TABLET PO PRN (21:50)
[2021-05-14] MEDS: ALPRAZOLAM 0.25 MG TABLET PO SCH ×4 (01:03→21:04)
[2021-05-14 04:13] LABS: Absolute Lymphocytes (CBC) 3.1 K/uL (0.7-4.9); Basophils % 0.4 % (0-1.3); Hematocrit 32.1 % (39.6-49.0); Lymphocytes % 16.9 % (15.3-44.8); MPV 8.3 fL (7.6-11.3); RBC Red Blood Cell Count 3.36 M/uL (4.33-5.43)
[2021-05-14 04:33] LABS: ALT/SGPT 60 U/L (12-78); AST/SGOT 34 U/L (15-37); Albumin 2.6 g/dL (3.4-5.0); Alkaline Phosphatase 84 U/L (45-117); BUN Blood Urea Nitrogen 17 mg/dL (7-18); Bicarbonate 34 mmol/L (21-32); Glucose Level 132 mg/dL (74-106); Potassium 4.1 mmol/L (3.5-5.1); Sodium Level 135 mmol/L (136-145)
--- NOTE | 2021-05-14 04:44 | P.PN ---
Subjective Date of Service: 05/14/21 Primary Care Provider: Kaden Chief Complaint: covid pneumonia Subjective: Other (Feels anxious. Reports easy fatigability.) Physical Examination - Vital Signs Temperature: 97.1 F Blood Pressure: 125/77 Pulse: 71 Respirations: 21 Pulse Ox (%): 95 - Physical Exam General: Other (Appears as his stated age.) HEENT: Atraumatic, Normocephalic Neck: Supple, JVD not distended Respiratory: Other (symmetric chest expansion) Cardiovascular: No edema Gastrointestinal: Soft and benign, Non-distended Musculoskeletal: No clubbing Integumentary: Other (normal temp) Neurological: Normal speech, Normal tone Urinary: Other (no bladder distention) External genitalia: Deferred Rectal: Deferred - Studies Medications List Reviewed: Yes Assessment And Plan - Plan # Hyponatremia secondary to appropriate ADH release from acute respiratory issues, anxiety, & low solute intake Resolved Respiratory management per other services Avoid hypokalemia. Replete KCl prn to keep serum K 4.0 or higher for prompt hyponatremia correction. Encouraged to increase by mouth solid food intake # Acute respiratory failure from COVID pneumonia On O2 support +Leukocytosis Incentive spirometry every 2 hours when awake Mngt per other services # Metabolic alkalosis + respi acidosis Received diamox ABG pH wnl, monitor # Hypertension Continue current antihypertensive medication regimen # Anxiety Xanax prn Increase Sertraline to 100 mg po daily. Increase Sertraline dose q wkly until anxiety much less. # Hyperglycemia Insulin dosing per primary team # Debility PT/OT # Dispo Dc plan to [facility] ongoing
[2021-05-14] MEDS: INSULIN -REGULAR HUMAN 50 UNIT/0.5 ML ML SQ SCH ×4 (05:39→18:00)
[2021-05-14 06:10] LABS: Arterial Blood Carboxyhemoglob 2.1 % (0-1.5); Blood Gas Oxyhemoglobin 93.9 % (94-97); Blood O2 Saturation 96.8 % (92-98.5)
[2021-05-14] MEDS: ENSURE HIGH PROTEIN 237 ML CAN PO SCH ×2 (08:51→21:00)
[2021-05-14] MEDS: POTASSIUM 25 MEQ EFFERV TAB PO SCH (08:51)
[2021-05-14] MEDS: POLYETHYL GLY 3350 17 GM/DOSE PO PRN (08:51)
[2021-05-14] MEDS: FUROSEMIDE 20 MG TABLET PO SCH (08:52)
[2021-05-14] MEDS: DOCUSATE NA 100 MG CAP PO SCH ×2 (08:52→21:04)
[2021-05-14] MEDS: FAMOTIDINE 20 MG TAB PO SCH ×2 (08:53→21:04)
[2021-05-14] MEDS: SERTRALINE HCL 50 MG TAB PO SCH (08:53)
[2021-05-14] MEDS: atenoloL 25 MG TAB PO SCH (08:53)
[2021-05-14] MEDS: dexAMETHasone 4 MG TAB PO SCH ×2 (08:53→21:04)
[2021-05-14] MEDS: ASPIRIN EC 81 MG TAB PO SCH (08:54)
--- NOTE | 2021-05-14 12:24 | P.PN ---
Subjective Date of Service: 05/14/21 Primary Care Provider: Kaden Chief Complaint: covid pneumonia Patient is feeling better oxygen levels are declining Review of Systems General: Weakness Respiratory: Shortness of Breath Physical Examination - Vital Signs Temperature: 98.5 F Blood Pressure: 114/66 Pulse: 81 Respirations: 24 Pulse Ox (%): 95 - Physical Exam General: Alert, Oriented x3, Mild distress - Studies Medications List Reviewed: Yes Assessment & Plan - Problems (Diagnosis) (1) Pneumonia due to COVID-19 virus Current Visit: Yes Status: Acute Plan: Respiratory failure patient is improving oxygen levels declining arterial blood gases reviewed satisfactory titrate sat to 90% Home O2 ordered probably discharge in 1 to 2 days
--- NOTE | 2021-05-14 16:27 | P.PN ---
Subjective Date of Service: 05/14/21 Primary Care Provider: Kaden Chief Complaint: covid pneumonia Patient is now on 10 L oxygen by nasal cannula He has no new complain. Physical Examination - Vital Signs Temperature: 98.5 F Blood Pressure: 114/66 Pulse: 81 Respirations: 24 Pulse Ox (%): 95 - Physical Exam General: Alert, Other (Anxious) Neck: JVD not distended Respiratory: Other (Nonlabored breathing) Cardiovascular: Regular rate/rhythm, Normal S1 S2 Gastrointestinal: Soft and benign, Non-distended, No tenderness Musculoskeletal: No swelling Integumentary: No rashes Neurological: Normal strength at 5/5 x4 extr - Studies Medications List Reviewed: Yes Assessment And Plan - Current Problems (Diagnosis) (1) Acute respiratory failure with hypoxia Current Visit: Yes Status: Acute (2) Pneumonia due to COVID-19 virus Current Visit: Yes Status: Acute (3) Essential hypertension Current Visit: Yes Status: Acute - Plan Problem list Acute hypoxemic respiratory failure secondary to COVID-19 pneumonia Steroid-induced hyperglycemia Hypertension Hyponatremia, mild; acute; resolved hypochloremic alkalosis Depression/Anxiety Continue steroids, vitamin supplementation. Completed baricitinib, completed remdesivir Continue to wean FiO2 as tolerated. Insulin sliding scale and Lantus insulin for glucose management. Morphine and ativan as needed for anxiety and shortness of breath. Continue Zoloft for anxiety and depression. Patient is generally weak and need PT. Patient encouraged to participate in PT. He is tolerating p.o. Pulmonology is following. Overall patient is clinically improving. Code: Full Dispo: prolonged hospitalization.
[2021-05-14] MEDS ORDERED: SERTRALINE HCL 50 MG TAB PO ONE (17:00)
[2021-05-14] MEDS: RIVAROXABAN 10 MG TABLET PO SCH (17:40)
[2021-05-14] MEDS: INSULIN GLARGINE 100 UNITS/ML SQ SCH (17:40)
[2021-05-14] MEDS: TRAZODONE 50 MG TABLET PO PRN (21:04)
[2021-05-15] MEDS: ALPRAZOLAM 0.25 MG TABLET PO SCH ×4 (01:10→20:18)
[2021-05-15 04:37] LABS: Absolute Lymphocytes (CBC) 3.4 K/uL (0.7-4.9); Basophils % 0.6 % (0-1.3); Hematocrit 35.2 % (39.6-49.0); Lymphocytes % 19.3 % (15.3-44.8); MPV 8.6 fL (7.6-11.3); RBC Red Blood Cell Count 3.66 M/uL (4.33-5.43)
[2021-05-15 04:58] LABS: BUN Blood Urea Nitrogen 16 mg/dL (7-18); Bicarbonate 37 mmol/L (21-32); Glucose Level 118 mg/dL (74-106); Potassium 4.7 mmol/L (3.5-5.1); Sodium Level 137 mmol/L (136-145)
[2021-05-15] MEDS: INSULIN -REGULAR HUMAN 50 UNIT/0.5 ML ML SQ SCH ×4 (06:00→18:00)
[2021-05-15] MEDS: ASPIRIN EC 81 MG TAB PO SCH (08:26)
[2021-05-15] MEDS: POTASSIUM 25 MEQ EFFERV TAB PO SCH (08:26)
[2021-05-15] MEDS: atenoloL 25 MG TAB PO SCH (08:27)
[2021-05-15] MEDS: DOCUSATE NA 100 MG CAP PO SCH ×2 (08:27→20:17)
[2021-05-15] MEDS: SERTRALINE HCL 50 MG TAB PO SCH (08:27)
[2021-05-15] MEDS: dexAMETHasone 4 MG TAB PO SCH ×2 (08:27→20:17)
[2021-05-15] MEDS: FAMOTIDINE 20 MG TAB PO SCH ×2 (08:28→20:17)
[2021-05-15] MEDS: POLYETHYL GLY 3350 17 GM/DOSE PO PRN (08:28)
[2021-05-15] MEDS: FUROSEMIDE 20 MG TABLET PO SCH ×3 (08:28→20:16)
--- NOTE | 2021-05-15 11:04 | P.PN ---
Subjective Date of Service: 05/15/21 Primary Care Provider: Kaden Chief Complaint: covid pneumonia Subjective: Other (reports no increase in shortness of breath today.) Physical Examination - Vital Signs Temperature: 97.8 F Blood Pressure: 126/82 Pulse: 68 Respirations: 25 Pulse Ox (%): 98 - Physical Exam General: Other (appears as his stated age) HEENT: Atraumatic, Normocephalic Neck: Supple, JVD not distended Respiratory: Other (symmetric chest expansion) Cardiovascular: No rubs, No murmurs Gastrointestinal: Soft and benign Musculoskeletal: No warmth Integumentary: No warmth Neurological: Normal speech, Normal tone Urinary: Other (no bladder distention) External genitalia: Deferred Rectal: Deferred - Studies Medications List Reviewed: Yes Assessment And Plan - Plan # Hyponatremia secondary to appropriate ADH release from acute respiratory issues, anxiety, & low solute intake Resolved, monitor [place] po fluid intake # Acute respiratory failure from COVID pneumonia On O2 support +Leukocytosis Incentive spirometry every 2 hours when awake Lasix 10 mg po bid Mngt per other services # Combined metabolic alkalosis + respi alkalosis Serum bicarb 37 Cont lasix as above Diamox 250 mg po bid x 4 doses # Hypertension Continue current antihypertensive medication regimen # Anxiety Xanax prn Sertraline increased to 100 mg po daily on 05/14/21. Increase Sertraline dose q wkly until anxiety much less. # Hyperglycemia Insulin dosing per primary team # Debility PT/OT # Dispo Dc plan to [facility] ongoing
[2021-05-15] MEDS: acetaZOLAMIDE 250 MG TAB PO SCH ×2 (14:11→20:18)
--- NOTE | 2021-05-15 15:50 | P.PN ---
Subjective Date of Service: 05/15/21 Primary Care Provider: Kaden Chief Complaint: covid pneumonia No major changes from yesterday. Patient stable on 8-10 L oxygen by nasal cannula He has no new complain. Physical Examination - Vital Signs Temperature: 97.9 F Blood Pressure: 116/72 Pulse: 66 Respirations: 24 Pulse Ox (%): 94 - Physical Exam General: Alert, In no apparent distress HEENT: Mucous membr. moist/pink Neck: JVD not distended Respiratory: Other (Nonlabored breathing) Cardiovascular: Regular rate/rhythm, Normal S1 S2 Gastrointestinal: Soft and benign, Non-distended Neurological: Normal strength at 5/5 x4 extr - Studies Medications List Reviewed: Yes Assessment And Plan - Current Problems (Diagnosis) (1) Acute respiratory failure with hypoxia Current Visit: Yes Status: Acute (2) Pneumonia due to COVID-19 virus Current Visit: Yes Status: Acute (3) Essential hypertension Current Visit: Yes Status: Acute - Plan Problem list Acute hypoxemic respiratory failure secondary to COVID-19 pneumonia Steroid-induced hyperglycemia Hypertension Hyponatremia, mild; acute; resolved hypochloremic alkalosis Depression/Anxiety Continue steroids, vitamin supplementation. Completed baricitinib, completed remdesivir Continue to wean FiO2 as tolerated. Insulin sliding scale and Lantus insulin for glucose management. Morphine and ativan as needed for anxiety and shortness of breath. Zoloft dose increased to 100 mg daily for anxiety and depression. Patient is generally weak. Patient encouraged to participate in PT. He is tolerating p.o. Overall patient is clinically improving. Code: Full Dispo: prolonged hospitalization.
[2021-05-15] MEDS: RIVAROXABAN 10 MG TABLET PO SCH (18:11)
[2021-05-15] MEDS: INSULIN GLARGINE 100 UNITS/ML SQ SCH (18:14)
[2021-05-16] MEDS: ALPRAZOLAM 0.25 MG TABLET PO SCH ×4 (02:20→20:18)
[2021-05-16] MEDS: INSULIN -REGULAR HUMAN 50 UNIT/0.5 ML ML SQ SCH ×4 (06:00→17:25)
[2021-05-16] MEDS: dexAMETHasone 4 MG TAB PO SCH ×2 (08:00→20:18)
[2021-05-16] MEDS: acetaZOLAMIDE 250 MG TAB PO SCH ×2 (08:00→20:18)
[2021-05-16] MEDS: FAMOTIDINE 20 MG TAB PO SCH ×2 (08:00→20:18)
[2021-05-16] MEDS: POTASSIUM 25 MEQ EFFERV TAB PO SCH (08:00)
[2021-05-16] MEDS: DOCUSATE NA 100 MG CAP PO SCH ×2 (08:00→20:18)
[2021-05-16] MEDS: ASPIRIN EC 81 MG TAB PO SCH (08:00)
[2021-05-16] MEDS: atenoloL 25 MG TAB PO SCH (08:00)
[2021-05-16] MEDS: FUROSEMIDE 20 MG TABLET PO SCH ×2 (08:01→20:17)
[2021-05-16] MEDS: SERTRALINE HCL 50 MG TAB PO SCH (08:02)
--- NOTE | 2021-05-16 09:01 | P.PN ---
Subjective Date of Service: 05/16/21 Primary Care Provider: Kaden Chief Complaint: covid pneumonia Subjective: Other (Reports less anxiety. No inc in SOB.) Physical Examination - Vital Signs Temperature: 96.7 F Blood Pressure: 146/76 Pulse: 78 Respirations: 17 Pulse Ox (%): 94 - Physical Exam General: Other (appears as his stated age) HEENT: Atraumatic, Normocephalic Neck: Supple, JVD not distended Respiratory: Other (symmetric chest expansion) Cardiovascular: No rubs, No murmurs Gastrointestinal: Soft and benign Musculoskeletal: No clubbing Integumentary: No warmth Neurological: Normal tone Urinary: Other (no bladder distention) - Studies Medications List Reviewed: Yes Assessment And Plan - Plan # Hyponatremia secondary to appropriate ADH release from acute respiratory issues, anxiety, & low solute intake Resolved, monitor [place] po fluid intake # Acute respiratory failure from COVID pneumonia On O2 support +Leukocytosis Incentive spirometry every 2 hours when awake Lasix 10 mg po bid Mngt per other services # Combined metabolic alkalosis + respi alkalosis Serum bicarb 37 Cont lasix as above Diamox 250 mg po bid x 4 doses # Hypertension BP at goal Continue current antihypertensive medication regimen # Anxiety Xanax prn Sertraline increased to 100 mg po daily on 05/14/21. Increase Sertraline dose q wkly until anxiety much less. # Hyperglycemia Insulin dosing per primary team # Debility PT/OT # Dispo Dc plan to [facility] ongoing
--- NOTE | 2021-05-16 10:20 | P.PN ---
Subjective Date of Service: 05/16/21 Primary Care Provider: Kaden Chief Complaint: covid pneumonia Respiratory failure patient's oxygenation is improving he remains anxious Review of Systems General: Weakness Respiratory: Shortness of Breath Physical Examination - Vital Signs Temperature: 96.7 F Blood Pressure: 146/76 Pulse: 78 Respirations: 17 Pulse Ox (%): 94 - Physical Exam General: Alert, Oriented x3, Mild distress - Studies Medications List Reviewed: Yes Assessment & Plan - Problems (Diagnosis) (1) Pneumonia due to COVID-19 virus Current Visit: Yes Status: Acute Plan: Respiratory failure patient's condition is improving titrate sat to 90% ambulate patient plan for discharge she continues to remain very anxious
--- NOTE | 2021-05-16 15:24 | P.PN ---
Subjective Date of Service: 05/16/21 Primary Care Provider: Kaden Chief Complaint: covid pneumonia No major changes from yesterday. No new complain. Patient has been resisting attempt to wean down his oxygen. Physical Examination - Vital Signs Temperature: 97.1 F Blood Pressure: 143/75 Pulse: 64 Respirations: 18 Pulse Ox (%): 94 - Physical Exam General: Alert, In no apparent distress Respiratory: Other (No labored breathing) Cardiovascular: Regular rate/rhythm, Normal S1 S2 Gastrointestinal: Soft and benign, Non-distended Musculoskeletal: No swelling Integumentary: No rashes Neurological: Normal strength at 5/5 x4 extr - Studies Medications List Reviewed: Yes Assessment And Plan - Current Problems (Diagnosis) (1) Acute respiratory failure with hypoxia Current Visit: Yes Status: Acute (2) Pneumonia due to COVID-19 virus Current Visit: Yes Status: Acute (3) Essential hypertension Current Visit: Yes Status: Acute - Plan Problem list Acute hypoxemic respiratory failure secondary to COVID-19 pneumonia Steroid-induced hyperglycemia Hypertension Hyponatremia, mild; acute; resolved hypochloremic alkalosis Depression/Anxiety Continue steroids, vitamin supplementation. Completed baricitinib, completed remdesivir Continue to wean FiO2 as tolerated. Insulin sliding scale and Lantus insulin for glucose management. Zoloft 100 mg daily for anxiety and depression. Patient is globally weak. Patient encouraged to participate in PT. He is tolerating p.o. Overall patient is clinically improving. Patient counseled on the need to wean down oxygen as he would tolerate. Code: Full Dispo: prolonged hospitalization. Considering rehab placement.
[2021-05-16] MEDS: RIVAROXABAN 10 MG TABLET PO SCH (17:17)
[2021-05-16] MEDS: INSULIN GLARGINE 100 UNITS/ML SQ SCH (17:25)
[2021-05-17] MEDS: ALPRAZOLAM 0.25 MG TABLET PO SCH ×4 (02:07→19:54)
[2021-05-17 04:05] LABS: Absolute Lymphocytes (CBC) 2.9 K/uL (0.7-4.9); Basophils % 0.3 % (0-1.3); Lymphocytes % 16.4 % (15.3-44.8); MPV 8.6 fL (7.6-11.3); RBC Red Blood Cell Count 3.63 M/uL (4.33-5.43)
[2021-05-17 04:22] LABS: Albumin 2.8 g/dL (3.4-5.0); BUN Blood Urea Nitrogen 19 mg/dL (7-18); Bicarbonate 30 mmol/L (21-32); Glucose Level 119 mg/dL (74-106); Magnesium 2.3 mg/dL (1.8-2.4); Potassium 3.7 mmol/L (3.5-5.1); Sodium Level 135 mmol/L (136-145)
[2021-05-17 05:08] LABS: Blood Morphology Comment NOT SEEN (NOT SEEN); Platelet Estimate ADEQ
[2021-05-17] MEDS: INSULIN -REGULAR HUMAN 50 UNIT/0.5 ML ML SQ SCH ×4 (06:00→17:23)
[2021-05-17] MEDS: POTASSIUM 25 MEQ EFFERV TAB PO SCH (08:11)
[2021-05-17] MEDS: FUROSEMIDE 20 MG TABLET PO SCH ×2 (08:11→19:55)
[2021-05-17] MEDS: SERTRALINE HCL 50 MG TAB PO SCH (08:11)
[2021-05-17] MEDS: dexAMETHasone 4 MG TAB PO SCH ×2 (08:11→19:54)
[2021-05-17] MEDS: DOCUSATE NA 100 MG CAP PO SCH ×2 (08:12→19:54)
[2021-05-17] MEDS: ASPIRIN EC 81 MG TAB PO SCH (08:12)
[2021-05-17] MEDS: atenoloL 25 MG TAB PO SCH (08:12)
[2021-05-17] MEDS: FAMOTIDINE 20 MG TAB PO SCH ×2 (08:12→19:54)
--- NOTE | 2021-05-17 12:09 | CON ---
Date of Consultation: 05/13/2021 Type Of Service: Psychiatry Consult. Reason For Consultation: Severe panic attacks and depression. History Of Present Illness: Mr. Yen is a 65-year-old male admitted via ER on March 30, 2021 on account of COVID-19 pneumonia with respiratory failure. He had no psychiatry hist ory. On interview, the patient which is frequent. At the time of exam, lasted for about 30 to 40 minutes each episode and had an average of 3 episodes a day. History going to worse since his medical medications. The patient did not listen to th is advice regarding taking the COVID shots. discharged from the hospital immedi ately gets the vaccination. The patient denies psychotic symptoms. No history of bipolar disorder. No history of he denies alcohol abuse or illicit substances. He says he is ma rried frequently, has a history of obtained family this situation. Since christin simms is improving. He is currently on 50 mg very effective. Objective: Vital Signs: Blood pressure is 117/71, pulse rate is 78, respiratory rate is 28, tempera ture is 98.6, nasal cannula. Mental Status Examination: The patient is a well-nourished lying in bed, not in any respi ratory distress DICTATION ENDS HERE. SUNG/LEANDRA Voice ID: [id number] Report ID: [id number]
[2021-05-17] MEDS: RIVAROXABAN 10 MG TABLET PO SCH (16:49)
[2021-05-17] MEDS: INSULIN GLARGINE 100 UNITS/ML SQ SCH (17:00)
--- NOTE | 2021-05-17 17:08 | P.PN ---
Subjective Date of Service: 05/17/21 Primary Care Provider: Kaden Chief Complaint: covid pneumonia No major changes. No new complain. Patient has been resisting attempt to wean down his oxygen. He is currently on 9L by nasal cannula. Physical Examination - Vital Signs Temperature: 97.7 F Blood Pressure: 113/67 Pulse: 67 Respirations: 20 Pulse Ox (%): 90 - Physical Exam General: Alert, Other (Mild distress) Neck: JVD not distended Respiratory: Crackles/rales (Bilateral) Cardiovascular: Regular rate/rhythm, Normal S1 S2 Gastrointestinal: Soft and benign, Non-distended Musculoskeletal: No swelling Integumentary: No rashes Neurological: Normal strength at 5/5 x4 extr - Studies Medications List Reviewed: Yes Assessment And Plan - Current Problems (Diagnosis) (1) Acute respiratory failure with hypoxia Current Visit: Yes Status: Acute (2) Pneumonia due to COVID-19 virus Current Visit: Yes Status: Acute (3) Essential hypertension Current Visit: Yes Status: Acute - Plan Problem list Acute hypoxemic respiratory failure secondary to COVID-19 pneumonia Steroid-induced hyperglycemia Hypertension Hyponatremia, mild; acute; resolved hypochloremic alkalosis Depression/Anxiety Continue steroids, vitamin supplementation. Completed baricitinib, completed remdesivir. Anxiety is contributing to his feeling of shortness of breath. Continue to wean oxygen as tolerated. Insulin sliding scale and Lantus insulin for glucose management. Zoloft titrated to 100 mg daily for anxiety and depression. Patient is globally weak. Patient encouraged to participate in PT. Overall patient is clinically improving. Patient counseled on the need to wean down oxygen. Code: Full Dispo: prolonged hospitalization. Transferred to [facility] rehab considered but I am told patient has to wean down to 5 L or less before he will be accepted to [facility].
--- NOTE | 2021-05-18 01:05 | PN ---
Date of Progress Note: 05/17/2021 Chief Complaint: COVID pneumonia, hyponatremia secondary to ADH release from acute respiratory issue s, anxiety and low solute intake. Sodium level overall has improved. Patient has acute respiratory failure from COVID pneumonia, on O2 nasal cannula. Patient is on Lasix for volume control. Review of Systems: Denies new complaints. Physical Examination: General: Not in acute distress. Lungs: Normal respiratory effort. Extremities: No edema. Impression And Plan: 1.Hyponatremia, resolved. Monitor electrolytes and continue p.o. fluid intake. 2.Acute respiratory failure on O2 support. Continue treatment. Lasix as needed, currently 10 mg tw ice a day. 3.Hypertension. Blood pressure controlled. Continue medications. 4.Combined metabolic alkalosis and respiratory alkalosis. The patient will continue Diamox 4 doses with 250 mg twice a day. Monitor electrolytes and ABG. EB/MODL Voice ID: [id number] Report ID: [id number]
[2021-05-18] MEDS: ALPRAZOLAM 0.25 MG TABLET PO SCH ×4 (02:01→20:02)
[2021-05-18 04:32] LABS: Absolute Lymphocytes (CBC) 2.9 K/uL (0.7-4.9); Basophils % 0.9 % (0-1.3); Hematocrit 34.2 % (39.6-49.0); Lymphocytes % 16.1 % (15.3-44.8); MPV 7.9 fL (7.6-11.3); RBC Red Blood Cell Count 3.62 M/uL (4.33-5.43)
[2021-05-18 04:46] LABS: BUN Blood Urea Nitrogen 16 mg/dL (7-18); Bicarbonate 29 mmol/L (21-32); Glucose Level 127 mg/dL (74-106); Potassium 3.6 mmol/L (3.5-5.1); Sodium Level 134 mmol/L (136-145)
[2021-05-18] MEDS: INSULIN -REGULAR HUMAN 50 UNIT/0.5 ML ML SQ SCH ×4 (06:00→17:37)
[2021-05-18] MEDS: DOCUSATE NA 100 MG CAP PO SCH ×2 (08:26→20:02)
[2021-05-18] MEDS: FUROSEMIDE 20 MG TABLET PO SCH ×2 (08:26→20:02)
[2021-05-18] MEDS: ASPIRIN EC 81 MG TAB PO SCH (08:27)
[2021-05-18] MEDS: POTASSIUM 25 MEQ EFFERV TAB PO SCH (08:27)
[2021-05-18] MEDS: dexAMETHasone 4 MG TAB PO SCH ×2 (08:27→20:02)
[2021-05-18] MEDS: atenoloL 25 MG TAB PO SCH (08:27)
[2021-05-18] MEDS: SERTRALINE HCL 50 MG TAB PO SCH (08:27)
[2021-05-18] MEDS: FAMOTIDINE 20 MG TAB PO SCH ×2 (08:27→20:02)
--- NOTE | 2021-05-18 13:59 | P.PN ---
Date of Service: 05/18/21 Subjective Continues to improve. Down to 8-10 L nasal cannula Continues with some anxiety, intermittently feels like he cannot breathe, feels like mini panic attacks, mostly associated with exertion of any kind Appetite is okay, supplements with Ensure Review of Systems 10-point ROS is otherwise unremarkable Physical Examination Gen: AOx3, NAD HEENT: normal conjunctiva, sclera anicteric Pulm: Mildly labored breathing on 8L NC CV: sinus rhythm, no edema Abd: soft, nontender, nondistended Neuro: moves all extremities Problem list Acute hypoxemic respiratory failure secondary to COVID-19 pneumonia Steroid-induced hyperglycemia Hypertension Hyponatremia, mild; acute; resolved hypochloremic alkalosis Depression/Anxiety Insomnia Continue steroids, vitamin supplementation. Completed baricitinib, completed re mdesivir Continue to wean FiO2 as tolerated. Insulin sliding scale and Lantus insulin for glucose management. Patient has been dealing with significant anxiety throughout hospitalization, continue low-dose Ativan PRN reports significant insomnia, continue trazodone 25 mg Continue Zoloft for anxiety and depression. Recently increased Pulmonology is following Code: Full Dispo: prolonged hospitalization. slow improvement awaiting insurance auth for inpatient rehab. has been several weeks since he has walked several steps consistent days Time Spent Managing Pts Care (In Minutes): 35
--- NOTE | 2021-05-18 14:51 | P.PN ---
Subjective Date of Service: 05/18/21 Primary Care Provider: Kaden Chief Complaint: covid pneumonia Still complaining from shortness of breath but the requirement of oxygenation has been decreased 10 L/min no high flow Review of Systems General: Weakness Eyes: Unremarkable ENT: Unremarkable Respiratory: Cough, SOB with Excertion Cardiovascular: Unremarkable Gastrointestinal: Unremarkable Genitourinary: Unremarkable Musculoskeletal: Back Pain Neurological: Weakness Physical Examination - Vital Signs Temperature: 97.7 F Blood Pressure: 119/65 Pulse: 73 Respirations: 28 Pulse Ox (%): 94 - Physical Exam General: Alert, Oriented x3 HEENT: Atraumatic Neck: Supple, JVD not distended Respiratory: Crackles/rales Cardiovascular: No edema, Normal S1 S2 Gastrointestinal: Normal bowel sounds, No ascites Musculoskeletal: No clubbing, No swelling Neurological: Cranial nerves 3-12 intact - Studies Medications List Reviewed: Yes Assessment And Plan Physician Review Additional Text: Problem list Current Medications: The patient on include aspirin, Xarelto, allopurinol, atenolol, Zoloft, lorazepam, trazodone, Ensure, dexamethasone 4 b.i.d., insulin, Bisacodyl, KCl. Assessment And Plan: 1. Hyponatremia secondary to depletion, recovered, resolved. 2. Alkalosis secondary to contraction alkalosis, status post Diamox maintained good. 3. Hypercapnic respiratory failure secondary to COVID. Continue to follow up with Pulmonary. 4. Hypokalemia, status post supplement. We will follow up. 5. COVID pneumonia, improving. We will follow up with Pulmonary and Primary. 6. Leukocytosis no fever I get a repeat chest x-ray and UA 7. deconditioning. Continue PT/OT.
[2021-05-18] MEDS ORDERED: INSULIN GLARGINE 100 UNITS/ML SQ SCH (17:00)
[2021-05-18] MEDS: RIVAROXABAN 10 MG TABLET PO SCH (17:33)
[2021-05-18] MEDS: TRAZODONE 50 MG TABLET PO PRN (20:02)
[2021-05-19] MEDS: ALPRAZOLAM 0.25 MG TABLET PO SCH ×4 (03:08→19:39)
[2021-05-19] MEDS: INSULIN -REGULAR HUMAN 50 UNIT/0.5 ML ML SQ SCH ×4 (05:17→17:27)
[2021-05-19] MEDS: FUROSEMIDE 20 MG TABLET PO SCH ×2 (08:57→19:42)
[2021-05-19] MEDS: dexAMETHasone 4 MG TAB PO SCH ×2 (08:57→19:39)
[2021-05-19] MEDS: POTASSIUM 25 MEQ EFFERV TAB PO SCH (08:57)
[2021-05-19] MEDS: DOCUSATE NA 100 MG CAP PO SCH ×2 (08:57→19:39)
[2021-05-19] MEDS: ASPIRIN EC 81 MG TAB PO SCH (08:57)
[2021-05-19] MEDS: SERTRALINE HCL 50 MG TAB PO SCH (08:57)
[2021-05-19] MEDS: FAMOTIDINE 20 MG TAB PO SCH ×2 (08:57→19:39)
[2021-05-19] MEDS: atenoloL 25 MG TAB PO SCH (08:58)
--- NOTE | 2021-05-19 11:43 | P.PN ---
Subjective Date of Service: 05/19/21 Primary Care Provider: Kaden Chief Complaint: covid pneumonia Still complaining from shortness of breath but the requirement of oxygenation has been decreased 8 L/min no high flow Review of Systems General: Weakness Eyes: Unremarkable ENT: Unremarkable Respiratory: Cough, SOB with Excertion Cardiovascular: Unremarkable Musculoskeletal: Back Pain Neurological: Weakness Physical Examination - Vital Signs Temperature: 98.1 F Blood Pressure: 131/74 Pulse: 80 Respirations: 32 Pulse Ox (%): 97 - Physical Exam General: Alert, Oriented x3 HEENT: Atraumatic Neck: Supple, Without JVD or thyroid abnormality Respiratory: Clear to auscultation bilaterally Cardiovascular: No edema, Normal S1 S2, Systolic murmur Gastrointestinal: Normal bowel sounds, Soft and benign, No ascites, No tenderness, No masses Musculoskeletal: No clubbing, No tenderness Neurological: Normal reflexes 2+, Abnormal strength - Studies WBC 18 hemoglobin 11.9 sodium 134 potassium 3.6 bicarb 29 BUN 16 creatinine 0.4 Medications List Reviewed: Yes Assessment And Plan Physician Review Additional Text: Problem list Current Medications: The patient on include aspirin, Xarelto, allopurinol, atenolol, Zoloft, lorazepam, trazodone, Ensure, dexamethasone 4 b.i.d., insulin, Bisacodyl, KCl. Assessment And Plan: 1. Hyponatremia secondary to depletion, recovered, resolved. 2. Alkalosis secondary to contraction alkalosis, status post Diamox maintained good. 3. Hypercapnic respiratory failure secondary to COVID. Continue to follow up with Pulmonary. 4. Hypokalemia, status post supplement. Resolved. 5. COVID pneumonia, improving. We will follow up with Pulmonary and Primary. Patient on the recovery phase without requirement of oxygenation has been decreased down to 8 L 6. Leukocytosis no fever resolved 7. deconditioning. Continue PT/OT.
--- NOTE | 2021-05-19 16:31 | P.PN ---
Date of Service: 05/19/21 Subjective Continues to improve. Maintain on 8 L nasal oxygen saturations dropped to 70s with minimal movement, but improves rather quickly States even when his oxygen saturations 95%, he still feels short of breath. Feels as though he is improving every day Motivated, and wanting to get to inpatient rehab as soon as possible/when he is ready Review of Systems 10-point ROS is otherwise unremarkable Physical Examination Gen: AOx3, NAD HEENT: normal conjunctiva, sclera anicteric Pulm: non- labored breathing on 8L NC CV: sinus rhythm, regular rate, no edema Abd: soft, nontender, nondistended Neuro: moves all extremities, generalized weakness Problem list Acute hypoxemic respiratory failure secondary to COVID-19 pneumonia Steroid-induced hyperglycemia Hypertension Hyponatremia, mild; acute; resolved hypochloremic alkalosis, resolved Depression/Anxiety Insomnia Continue steroids, vitamin supplementation. Completed baricitinib, completed remdesivir Continue to wean FiO2 as tolerated. Insulin sliding scale and Lantus insulin for glucose management. Patient has been dealing with significant anxiety throughout hospitalization, continue low-dose Ativan PRNm zoloft has been uptitrated to 100mg reports significant insomnia, continue trazodone 25 mg, has improved Continue Zoloft for anxiety and depression. Pulmonology is following ALEXANDRO/hyponatremia resolved, appreciate nephrology's assistance Code: Full Dispo: prolonged hospitalization. slow improvement Insurance approved inpatient rehab. Inpatient rehab waiting for patient to be stable on 5 L nasal cannula or less prior to acceptance. Time Spent Managing Pts Care (In Minutes): 35
[2021-05-19] MEDS: RIVAROXABAN 10 MG TABLET PO SCH (17:03)
[2021-05-19] MEDS: INSULIN GLARGINE 100 UNITS/ML SQ SCH (17:11)
[2021-05-19] MEDS: TRAZODONE 50 MG TABLET PO PRN (23:22)
[2021-05-20] MEDS: ALPRAZOLAM 0.25 MG TABLET PO SCH ×3 (02:07→14:18)
[2021-05-20 04:12] LABS: Hematocrit 32.8 % (39.6-49.0); MPV 8.4 fL (7.6-11.3); RBC Red Blood Cell Count 3.46 M/uL (4.33-5.43)
[2021-05-20 04:40] LABS: ALT/SGPT 44 U/L (12-78); AST/SGOT 28 U/L (15-37); Albumin 2.6 g/dL (3.4-5.0); Alkaline Phosphatase 94 U/L (45-117); BUN Blood Urea Nitrogen 14 mg/dL (7-18); Bicarbonate 31 mmol/L (21-32); Bilirubin Total 0.9 mg/dL (0.2-1.0); Ferritin 1066.5 ng/mL (26-388); Glucose Level 119 mg/dL (74-106); Potassium 3.7 mmol/L (3.5-5.1); Protein, Total 6.2 g/dL (6.4-8.2); Sodium Level 135 mmol/L (136-145)
[2021-05-20] MEDS: INSULIN -REGULAR HUMAN 50 UNIT/0.5 ML ML SQ SCH ×4 (04:46→17:18)
--- NOTE | 2021-05-20 06:12 | P.PN ---
Subjective Date of Service: 05/20/21 Primary Care Provider: Kaden Chief Complaint: covid pneumonia Physical Examination - Vital Signs Temperature: 98.2 F Blood Pressure: 155/80 Pulse: 73 Respirations: 18 Pulse Ox (%): 94 - Studies Medications List Reviewed: Yes Assessment And Plan - Plan # Hyponatremia secondary to appropriate ADH release from acute respiratory issues, anxiety, & low solute intake Resolved, monitor [place] po fluid intake # Acute respiratory failure from COVID pneumonia On O2 support +Leukocytosis Incentive spirometry every 2 hours when awake Lasix 10 mg po bid Mngt per other services # Combined metabolic alkalosis + respi alkalosis Serum bicarb 37 Cont lasix as above Diamox 250 mg po bid x 4 doses # Hypertension BP at goal Continue current antihypertensive medication regimen # Anxiety Xanax prn Sertraline increased to 100 mg po daily on 05/14/21. Increase Sertraline dose q wkly until anxiety much less. # Hyperglycemia Insulin dosing per primary team # Debility PT/OT # Dispo Dc plan to [facility] ongoing Physician Review Additional Text: Problem list Current Medications: The patient on include aspirin, Xarelto, allopurinol, atenolol, Zoloft, lorazepam, trazodone, Ensure, dexamethasone 4 b.i.d., insulin, Bisacodyl, KCl. Assessment And Plan: 1. Hyponatremia secondary to depletion, recovered, resolved. 2. Alkalosis secondary to contraction alkalosis, status post Diamox maintained good. 3. Hypercapnic respiratory failure secondary to COVID. Continue to follow up with Pulmonary. 4. Hypokalemia, status post supplement. Resolved. 5. COVID pneumonia, improving. We will follow up with Pulmonary and Primary. Patient on the recovery phase without requirement of oxygenation has been decreased down to 8 L 6. Leukocytosis no fever resolved 7. deconditioning. Continue PT/OT.
--- NOTE | 2021-05-20 06:30 | P.PN ---
Date of Service: 05/20/21 Subjective Improving every day, patient down to 7.5 L nasal cannula Looking forward to being transferred to inpatient rehab to continue his therapy Review of Systems 10-point ROS is otherwise unremarkable Physical Examination Gen: AOx3, NAD HEENT: normal conjunctiva, sclera anicteric Pulm: non- labored breathing on 7.5L NC CV: sinus rhythm, regular rate, no edema Abd: soft, nontender, nondistended Neuro: moves all extremities, generalized weakness Problem list Acute hypoxemic respiratory failure secondary to COVID-19 pneumonia Steroid-induced hyperglycemia Hypertension Hyponatremia, mild; acute; resolved hypochloremic alkalosis, resolved Depression/Anxiety Insomnia Continue steroids, vitamin supplementation. Completed baricitinib, completed remdesivir Continue to wean FiO2 as tolerated. Patient has been dealing with significant anxiety throughout hospitalization, continue low-dose Ativan PRN; zoloft has been uptitrated to 100mg reported significant insomnia in the past, continue trazodone 25 mg PRN, has improved Continue Zoloft for anxiety and depression. Pulmonology is following ALEXANDRO/hyponatremia resolved, appreciate nephrology's assistance Code: Full Dispo: prolonged hospitalization. [facility] improvement Insurance approved inpatient rehab. Inpatient rehab waiting for patient to be stable on 5 L nasal cannula or less prior to acceptance. Hopefully patient will be ready for rehab in the next 1 to 2 days Time Spent Managing Pts Care (In Minutes): 35
[2021-05-20] MEDS: ASPIRIN EC 81 MG TAB PO SCH (08:01)
[2021-05-20] MEDS: dexAMETHasone 4 MG TAB PO SCH (08:02)
[2021-05-20] MEDS: FAMOTIDINE 20 MG TAB PO SCH (08:02)
[2021-05-20] MEDS: DOCUSATE NA 100 MG CAP PO SCH (08:02)
[2021-05-20] MEDS: SERTRALINE HCL 50 MG TAB PO SCH (08:02)
[2021-05-20] MEDS: atenoloL 25 MG TAB PO SCH (08:03)
[2021-05-20] MEDS: FUROSEMIDE 20 MG TABLET PO SCH (08:04)
[2021-05-20] MEDS ORDERED: POTASSIUM 25 MEQ EFFERV TAB PO ONE (09:00)
[2021-05-20 16:12] VITALS: O2SAT 93
[2021-05-20 16:14] VITALS: BP 135/80; TEMP 97
[2021-05-20] MEDS: INSULIN GLARGINE 100 UNITS/ML SQ SCH (16:52)
[2021-05-20] MEDS: RIVAROXABAN 10 MG TABLET PO SCH (16:53)
--- NOTE | 2021-05-20 16:54 | P.DS ---
Admission Date: 03/30/21 Discharge Date: 05/20/21 Primary Care Provider: Kaden Disposition: TRANSFER TO INPATIENT REHAB Discharge Condition: GOOD Reason for Admission: covid pneumonia Consultations: Pulmonology - Dr. Holley Nephrology - Dr. Alfonso/Wesley/Annie/Duc Procedures: CXR (03/30): IMPRESSION: Mild patchy bilateral airspace disease concerning for multifocal pneumonia, including Covid-19. CXR (04/03): IMPRESSION: Moderate worsening in lung aeration seen since 03/30/2021. CXR (04/07): IMPRESSION: Lung volumes slightly improved but otherwise similar bilateral airspace disease which remains concerning for multifocal pneumonia. CXR (04/22): IMPRESSION: Left greater than right [id number] COVID-19 pneumonia pattern similar to comparison. KUB (04/27): FINDINGS: Feeding tube has been advanced into the stomach. The tubing is cul de within the stomach with the weighted tip near the GE junction. There is no abnormal bend or kink in the tubing. CXR (05/01): Moderate bilateral pulmonary opacities are present suspicious for COVID infection. They appear essentially stable since comparative study. Enteric coils in the stomach. The heart is normal in size. CXR (05/13): IMPRESSION: Limited portable examination shows interstitial and alveolar opacities similar to slightly worse than on the May 02 study. Bilateral pneumonia is certainly a possibility but has shown no change from May 02. Pneumonia etiologies would include COVID-19 pneumonia. Noninfectious interstitial edema superimposed on COPD possible as well. Problem list Acute hypoxemic respiratory failure secondary to COVID-19 pneumonia Steroid-induced hyperglycemia Hypertension Hyponatremia, mild; acute; resolved hypochloremic alkalosis; resolved Leukocytosis Depression/Anxiety Brief History of Present Illness: 65 yo M with HTN who presents with six days of cough and SOB. He tested positive for COVID last Monday, but his symptoms have been markedly worse for the past two days. He reports fatigue, dry cough, headache, nausea and diarrhea. Found to be hypoxic in the ED with elevated inflammatory markers. Hospital Course: Patient was treated for COVID per protocol. He received steroids, Baracitinab, vitamin supplementation, oxygen supplementation, and anticoagulation. He had a very prolonged hospital course due to difficulty weaning oxygen. Patient was on 100% high [place] nasal cannula with intermittent BIPAP for many weeks. He had very gradual improvement down to 6-7L NC. Due to prolonged hypoxia / oxygen supplementation requirement, patient was essentially bed-bound for many weeks and became severely debilitated. As his oxygenation improved, he was able to participate more and more with PT. It was recommended that he be transferred to inpatient rehab once stable, for continued PT. Hospitalization was complicated by -anxiety / panic attacks due to feeling short of breath and as though he couldn't breathe at times. This was managed with benzodiazepines and initiation/uptitration of zoloft. He had significant improvement throughout his hospitalization. -steroid-induced hyperglycemia - managed with insulin sliding scale and lantus, with good results -insomnia - secondary to anxiety and SOB. improved with low dose trazodone PRN -mild ALEXANDRO secondary to pre-renal / decreased PO intake, nephrology was consulted and this improved/resolved. -periods of clinical deterioration and worsening inflammatory markers, during which, patient was empirically treated and completed antibiotics. Follow up: PCP in 3-5 days of discharge from rehab. Pulmonology - Dr. Holley in ~1 week Vital Signs/Physical Exam: Physical Examination Gen: AOx3, NAD HEENT: normal conjunctiva, sclera anicteric Pulm: non- labored breathing on 7L NC CV: sinus rhythm, regular rate, no edema Abd: soft, nontender, nondistended Neuro: moves all extremities, generalized weakness Temp Pulse Resp BP Pulse Ox 97 F 73 21 H 135/80 93 05/20/21 16:00 05/20/21 16:00 05/20/21 16:00 05/20/21 16:00 05/20/21 16:00 Laboratory Data at Discharge: WBC 14.60 K/uL (4.3-10.9) H D 05/20/21 02:55 Hgb 11.1 g/dL (13.6-17.9) L 05/20/21 02:55 Hct 32.8 % (39.6-49.0) L 05/20/21 02:55 Plt Count 310 K/uL (152-406) 05/20/21 02:55 PT 12.6 SECONDS (9.5-12.5) H 03/30/21 18:06 INR 1.09 03/30/21 18:06 APTT 33.4 SECONDS (24.3-36.9) 03/30/21 18:06 Sodium 135 mmol/L (136-145) L 05/20/21 02:55 Potassium 3.7 mmol/L (3.5-5.1) 05/20/21 02:55 BUN 14 mg/dL (7-18) 05/20/21 02:55 Creatinine 0.37 mg/dL (0.55-1.3) L 05/20/21 02:55 Glucose 119 mg/dL (74-106) H 05/20/21 02:55 Uric Acid 2.2 mg/dL (3.5-7.2) L 04/21/21 03:57 Phosphorus 5.0 mg/dL (2.5-4.9) H 05/17/21 03:01 Magnesium 2.0 mg/dL (1.8-2.4) 05/20/21 02:55 Total Bilirubin 0.9 mg/dL (0.2-1.0) 05/20/21 02:55 AST 28 U/L (15-37) 05/20/21 02:55 ALT 44 U/L (12-78) 05/20/21 02:55 Alkaline Phosphatase 94 U/L (45-117) 05/20/21 02:55 Troponin I < 0.02 ng/mL (0.0-0.045) 04/24/21 03:44 Triglycerides 98 mg/dL (<150) 03/31/21 02:13 Cholesterol 166 mg/dL (<200) 03/31/21 02:13 HDL Cholesterol 41 mg/dL (40-60) 03/31/21 02:13 Cholesterol/HDL Ratio 4.05 03/31/21 02:13 Home Medications: Atenolol [Tenormin] 25 mg PO DAILY 03/30/21 ALPRAZolam [Xanax*] 0.25 mg PO Q6H tab 05/20/21 Docusate [Colace Cap*] 100 mg PO BID cap 05/20/21 Famotidine [Pepcid*] 20 mg PO BID tab 05/20/21 Furosemide [Lasix*] 10 mg PO BID tab 05/20/21 Insulin Glargine Human [Lantus*] 10 units SQ DAILY AT SUPPER ml 05/20/21 Rivaroxaban [Xarelto*] 10 mg PO DAILY AT SUPPER tablet 05/20/21 Sertraline [Zoloft*] 100 mg PO DAILY tab 05/20/21 Trazodone [Desyrel*] 50 mg PO BEDTIME PRN PRN tablet 05/20/21 dexAMETHasone [Decadron*] 4 mg PO BID tab 05/20/21 Diet: Regular Activity: Fall precautions Followup: NONE,NONE [Primary Care Provider] - Time spent managing pt's care (in minutes): 40
--- NOTE | 2021-05-22 11:49 | EKG ---
Test Date: 2021-05-17 Test Time: 16:34:27 Data Processing Mechanic: SUSAN MEASUREMENT RESULTS: Intervals: Rate: 64 PA: 246 QRSD: 102 QT: 432 QTc: 445 Elim: P: 41 PA: 246 QRS: -19 T: 56 INTERPRETIVE STATEMENTS: Sinus rhythm with 1st degree AV block Voltage criteria for left ventricular hypertrophy Abnormal ECG No previous ECG available for comparison Electronically Signed On 05-22-21 11:45:23 CDT by Arron Nguyen
== END 2021-05-20 18:51 | DRG 177 ==
LOC: ER 17:04 → ERHOLD 18:54 → INTOOBSV 18:54 → OBSVTOIN 18:54 → 4TH 03-31 20:07 → 3RD-ICU 04-26 06:16 → 4TH 04-29 17:48
PROVIDERS: ADMIT Internal Medicine; ATTEND Hospitalist
PROC: 5A09357 Assistance with Respiratory Ventilation, Less than 24 Consecutive Hours, Continuous Positive Airway Pressure (ICD-10-PCS; principal; 2021-04-01)
DX: U07.1 COVID-19 (principal); J12.82 Pneumonia due to coronavirus disease 2019; J96.01 Acute respiratory failure with hypoxia; J96.02 Acute respiratory failure with hypercapnia; E87.1 Hypo-osmolality and hyponatremia; E87.3 Alkalosis; E46 Unspecified protein-calorie malnutrition; N17.9 Acute kidney failure, unspecified; E87.6 Hypokalemia; L89.301 Pressure ulcer of unspecified buttock, stage 1; I10 Essential (primary) hypertension; R73.9 Hyperglycemia, unspecified; T38.0X5A Adverse effect of glucocorticoids and synthetic analogues, initial encounter; F32.A Depression, unspecified; Z66 Do not resuscitate; F41.9 Anxiety disorder, unspecified; F41.8 Other specified anxiety disorders; R53.81 Other malaise; G47.00 Insomnia, unspecified; Z68.30 Body mass index [BMI] 30.0-30.9, adult
CPT/HCPCS: 36415; 71045; 74018; 80048; 80053; 80061; 80069; 80076; 81003; 81015; 82040; 82248; 82570; 82728; 82805; 82947; 83036; 83605; 83735; 83880; 83930; 83935; 84100; 84132; 84145; 84156; 84300; 84439; 84443; 84484; 84550; 85025; 85027; 85379; 85610; 85730; 86140; 87040; 93005; 94002; 94003; 94660; 94760; 96374; 97110; 97112; 97161; 97530; 99284; J1100; J1650; J1815; J1940; J2270; J2405; J2920; J2930; J3480; J7030; J7040; J7050; J8540